=== PATIENT | female | born 1985 | race Caucasian/White ===

== ENCOUNTER 2023-01-16 11:29 | Emergency (ER) | payer BC, SELFPAY ==
[2023-01-16 11:31] VITALS: BP 125/81; PULSE 99; RESP 16; TEMP 36.1; O2SAT 99; BMI 33.3
--- NOTE | 2023-01-16 11:49 | EX.ED.DYSGE1 ---
HPI <LILLY Michel - Last Filed: 01/16/23 18:04> History of Present Illness Chief Complaint: Abd Pain Narrative Narrative: Patient presenting today with right upper quadrant abdominal pain that she has had since 6 AM this morning. She reports that she has a constant dull ache and intermittent sharp pains that radiate down her right side. She also reports nausea and 4 episodes of vomiting without any hematemesis since this morning. She is 19 weeks and has had regular care, she is and has a history of miscarriage. She denies any fever, chills, abnormal vaginal discharge, vaginal bleeding, and urinary symptoms. She denies any previous abdominal surgery. PFSH <LILLY Michel - Last Filed: 01/16/23 18:04> PFSH Home Medications ondansetron 4 mg disintegrating tablet 4 mg PO Q8H PRN PRN Nausea #10 tabs 01/16/23 [Rx Last Taken Unknown] Allergy/AdvReac Type Severity Reaction Status Date / Time turkey Allergy Mild Hives Verified 01/16/23 11:30 wool Allergy Mild Hives Verified 01/16/23 11:30 amoxicillin Allergy Hives Verified 01/16/23 11:30 Social History Smoking Status: Former smoker ROS <LILLY Michel - Last Filed: 01/16/23 18:04> ROS ED Constitutional Constitutional ED: Denies chills, fever(s) or sweats Eyes Eyes: Denies blurry vision or diplopia Cardiovascular Cardiovascular: Denies chest pain Respiratory/Chest Respiratory/Chest: Denies cough or dyspnea Gastrointestinal Gastrointestinal: Reports abdominal pain, nausea and vomiting; Denies constipation or diarrhea Genitourinary Genitourinary ED: Denies dysuria, hematuria or urinary urgency Musculoskeletal Musculoskeletal: Denies arthralgias, back pain or myalgias Integumentary Denies abscess, Abrasions or rash Neurologic Neurologic: Denies weakness EXAM <LILLY Michel - Last Filed: 01/16/23 18:04> Physical Exam Const Vital Signs: 01/16/23 11:31 01/16/23 16:06 Temperature 97.0 F L Temperature Source Temporal Pulse Rate 99 68 Respiratory Rate 16 16 Blood Pressure 125/81 H 114/62 Blood Pressure Mean 95 Pulse Ox 99 Oxygen Delivery Method Room Air Positive well nourished, well developed and no apparent distress General Appearance ED: well developed HEENT Reports normocephalic and head/scalp atraumatic Mouth ED: Yes moist mucous membranes normal Eyes PERRL and EOMs intact bilaterally Neck full ROM and supple Chest Wall inspection of chest normal Resp normal respiratory effort and clear to auscultation bilaterally Cardio regular rate and regular rhythm GI soft to palpation, non-distended and no masses GI Narrative: Mild right upper quadrant tenderness to palpation, negative Calzada sign. Palpation: Negative for guarding or rebound tenderness present Back/Spine normal ROM and normal to inspection Extremity full ROM Extremity Narrative: Area of ecchymosis to the right lateral thigh from hitting it on the side of the bed 2 nights ago. Neuro oriented x3, CN's II-XII intact bilaterally, moves all extremities, no focal motor deficits and no sensory deficits noted Sensorium / Orientation: awake and alert Psych mental status grossly normal and thought process normal Skin no rashes or lesions noted and no wounds <Dr. Quirino Vicente MD - Last Filed: 01/16/23 13:47> Physical Exam Const Vital Signs: 01/16/23 11:31 01/16/23 16:06 Temperature 97.0 F L Temperature Source Temporal Pulse Rate 99 68 Respiratory Rate 16 16 Blood Pressure 125/81 H 114/62 Blood Pressure Mean 95 Pulse Ox 99 Oxygen Delivery Method Room Air [facility] <LILLY Michel - Last Filed: 01/16/23 18:04> [facility] Narrative Medical decision making narrative: Patient presenting today with right upper quadrant abdominal pain that started at 6 AM she describes it as a constant ache and intermittent sharp shooting pains. The pain occasionally radiates down her right side. She still has her gallbladder and has not had any previous abdominal surgery. She is very mildly tender to right upper quadrant, negative Calzada sign. She reports nausea and vomiting without any diarrhea. He has been given IV fluids and Zofran. Labs will be obtained to rule out leukocytosis, anemia, electrolyte abnormality, hepatobiliary etiology, and UTI. Right upper quadrant ultrasound obtained to rule out cholecystitis. Labs overall are unremarkable, slight leukocytosis which can be due to her being . UA does show hematuria with 2+ bacteria but is contaminated, culture will be sent. Ultrasound shows mild right hydronephrosis which does make me suspicious for a kidney stone. She is not having any urinary symptoms but this could explain the hematuria. However, I do not think that any additional imaging is indicated. On repeat examination she reports that she feels much better and would like to go home. I have given her a prescription for Zofran and and she has been given strict return instructions. She is to follow-up with her OB as well and will be discharged home in stable condition. She is comfortable. Lab Data Attestation: I reviewed the patient's lab results. Labs: Laboratory Results - last 24 hr 01/16/23 01/16/23 12:00 13:30 WBC 13.3 H RBC 4.31 Hgb 13.4 Hct 39.9 MCV 92.6 MCH 31.1 MCHC 33.6 RDW Std Deviation 44.5 H RDW Coeff of James 13.1 Plt Count 322 MPV 9.2 Immature Gran % (Auto) 0.500 Neut % (Auto) 76.8 H Lymph % (Auto) 13.0 L [place] % (Auto) 6.8 Eos % (Auto) 2.6 Baso % (Auto) 0.3 Absolute Neuts (auto) 10.2 H Absolute Lymphs (auto) 1.73 Nucleated RBC % 0 Sodium 138 Potassium 3.7 Chloride 107 Carbon Dioxide 23.0 Anion Gap 8 BUN 12 Creatinine 0.78 Estim Creat Clear Calc 72.31 Est GFR (MDRD) Af Amer 107 Est GFR (MDRD) Non-Af 89 BUN/Creatinine Ratio 15.3 Glucose 109 H Calcium 9.0 Total Bilirubin 0.40 AST 17 ALT 23 Alkaline Phosphatase 52 Total Protein 6.9 Albumin 3.0 L Globulin 3.9 Albumin/Globulin Ratio 0.8 L Urine Color Yellow Urine Clarity Cloudy Urine pH 6.0 Ur Specific [place] 1.025 Urine Protein 30 H Urine Glucose (UA) Normal Urine Ketones 50 H Urine Occult Blood 250 H Urine Nitrite Negative Urine Bilirubin Negative Urine Urobilinogen 1 H Ur Leukocyte Esterase 100 H Urine RBC 50-100 SEEN Urine WBC 5-10 SEEN Ur Squamous Epith Cells 10-25 SEEN Urine Bacteria 2+ Urine Mucus 0 SEEN Radiography Diagnostic Testing: Clinical Impression(s) from Imaging Studies Gallbladder Ultrasound 01/16/23 12:01 IMPRESSION: Mild right hydronephrosis. Electronically Signed: Jah Back MD at 14:17 EDT , <Dr. Quirino Vicente MD - Last Filed: 01/16/23 13:47> [facility] Lab Data Labs: Laboratory Results - last 24 hr 01/16/23 01/16/23 12:00 13:30 WBC 13.3 H RBC 4.31 Hgb 13.4 Hct 39.9 MCV 92.6 MCH 31.1 MCHC 33.6 RDW Std Deviation 44.5 H RDW Coeff of James 13.1 Plt Count 322 MPV 9.2 Immature Gran % (Auto) 0.500 Neut % (Auto) 76.8 H Lymph % (Auto) 13.0 L [place] % (Auto) 6.8 Eos % (Auto) 2.6 Baso % (Auto) 0.3 Absolute Neuts (auto) 10.2 H Absolute Lymphs (auto) 1.73 Nucleated RBC % 0 Sodium 138 Potassium 3.7 Chloride 107 Carbon Dioxide 23.0 Anion Gap 8 BUN 12 Creatinine 0.78 Estim Creat Clear Calc 72.31 Est GFR (MDRD) Af Amer 107 Est GFR (MDRD) Non-Af 89 BUN/Creatinine Ratio 15.3 Glucose 109 H Calcium 9.0 Total Bilirubin 0.40 AST 17 ALT 23 Alkaline Phosphatase 52 Total Protein 6.9 Albumin 3.0 L Globulin 3.9 Albumin/Globulin Ratio 0.8 L Urine Color Yellow Urine Clarity Cloudy Urine pH 6.0 Ur Specific [place] 1.025 Urine Protein 30 H Urine Glucose (UA) Normal Urine Ketones 50 H Urine Occult Blood 250 H Urine Nitrite Negative Urine Bilirubin Negative Urine Urobilinogen 1 H Ur Leukocyte Esterase 100 H Urine RBC 50-100 SEEN Urine WBC 5-10 SEEN Ur Squamous Epith Cells 10-25 SEEN Urine Bacteria 2+ Urine Mucus 0 SEEN Radiography Diagnostic Testing: Clinical Impression(s) from Imaging Studies Gallbladder Ultrasound 01/16/23 12:01 IMPRESSION: Mild right hydronephrosis. Electronically Signed: Jah Back MD at 14:17 EDT , Treatment and Re-Evaluation :: I have personally performed a face to face assessment of the patient and have reviewed the SINAN Note. I performed a substantive portion of the visit including all aspects of the following. My heredia findings include: History: Patient presents with nausea vomiting some right upper quadrant pain that really started this morning. She has not had problems with morning sickness with this . She has never had gallbladder problems or cholecystectomy. No family history of this. No chest pain or trouble breathing. She is not having pelvic pain discharge or bleeding. She is not having issues with the . Exam: Patient is awake alert. She overall looks reasonably comfortable. Mucous membranes are moist. Lungs are clear and saturations are normal at 99% on room air showing no hypoxia. Bowel sounds are normal. Abdomen is gravid. No uterine tenderness on exam and uterus is slightly below the umbilicus. She has minimal if any right upper quadrant tenderness although that is where her discomfort is. No epigastric tenderness. No rash. Medical Decision Making: Patient will get IV fluids meds for nausea Labs ultrasound. These are pending. Discharge Plan Triage Chief Complaint: Abd Pain ED Midlevel Provider: Octavia Vargas ED Provider: Quirino Vicente Dx/Rx/DC Orders Clinical Impression: Nausea & vomiting, Abdominal pain Instructions: Abdominal Pain Prescriptions: New ondansetron 4 mg tablet,disintegrating 4 mg PO Q8H PRN PRN (Reason: Nausea) Qty: 10 0RF Primary Care Provider: Care Physician,No Primary Referrals: Care Physician,No Primary [Primary Care Provider] - Activity Restrictions/Additional Instructions: Please follow-up with your [facility] and return for any worsening of symptoms. Disposition Disposition: Home, Self Care Discharge Date/Time: 01/16/23 16:08
[2023-01-16] MEDS: Ondansetron 4 MG/2 ML Vial IV (11:59)
[2023-01-16] MEDS: 0.9% Normal Saline 1,000 ML 999 ML IV (11:59)
--- NOTE | 2023-01-16 12:01 | US_ITS ---
STUDY: ABDOMINAL ULTRASOUND - RIGHT UPPER QUADRANT REASON FOR VISIT: Female, 37 years old RUQ PAIN 19 WEEKS PREG TECHNIQUE: Ultrasound evaluation of the right upper quadrant was performed with real-time and static short-scale imaging. TECHNICAL QUALITY: Adequate. COMPARISON: None. FINDINGS: Liver: The liver measures 14 cm. There is normal echogenicity of the liver. The bile ducts are within normal limits. There is hepatic color flow. The direction of portal flow is hepatopetal. There is no demonstrated mass lesion. Gallbladder: Normal distended gallbladder. The gallbladder wall measures 1.1 mm. There is a negative sonographic Calzada''s sign. There is no pericholecystic fluid. There are no gallstones. Common Bile Duct (C.B.D.): The common bile duct measures 5.2 mm. Pancreas: Normal size of the head, body and tail of the pancreas. There is normal echogenicity of the pancreas. There is no demonstrated pancreatic mass or cyst. Right Kidney: Normal size of the right kidney. The right kidney measures 11.3 cm x 6.3 cm x 5.5 cm. Normal renal cortex. The right cortex measures 1.7 cm. There is no demonstrated renal mass or cyst. There is mild hydronephrosis of the right kidney. US/Gallbladder IMPRESSION: Mild right hydronephrosis. Electronically Signed: Jah Back MD at 14:17 EDT ,
--- NOTE | 2023-01-16 12:03 | ED.RN ---
IV started and medicated per order. Patient / family aware of treatment plan.
[2023-01-16 12:17] LABS: Absolute Lymphocyte Count 1.73 X10^3/uL (0.83-4.51); Absolute Neutrophil Count 10.2 X10^3/uL (2.0-7.7); Basophil# 0.04 X10^3/uL; Basophil% 0.3 % (0-1); Eosinophil# 0.34 X10^3/uL; Eosinophils% 2.6 % (0-5); Hematocrit 39.9 % (37-47); Hemoglobin 13.4 g/dL (12.0-15.0); Lymphocyte # 1.73 X10^3/ul (0.83-4.51); Mean Corp Hgb Conc 33.6 g/dL (32-36); Mean Corpuscular Hgb 31.1 pg (27.0-32.0); Mean Corpuscular Volume 92.6 fL (81-99); Mean Platelet Vol. 9.2 fl (6.2-12.0); Monocyte# 0.91 X10^3/uL; Monocyte% 6.8 % (0-10); NRBC Flagged by Analyzer 0 % (0-5); Neutrophil # 10.21 X10^3/uL (2.7-7.7); Neutrophil % 76.8 % (47-70); Platelet Count 322 K/mm3 (150-450); RBC Distribution Width CV 13.1 % (11.6-14.6); RBC Distribution Width SD 44.5 fl (35.1-43.9); Red Blood Count 4.31 M/mm3 (4.2-5.4); White Blood Count 13.3 K/mm3 (4.4-11.0)
[2023-01-16 12:33] LABS: ALB/GLOB Ratio 0.8 RATIO (0.9-2.4); AST(SGOT) 17 U/L (15-37); Alanine Aminotransfer ALT/SGPT 23 U/L (13-56); Alkaline Phosphatase 52 U/L (45-117); Anion Gap 8 (5-15); BUN 12 mg/dL (7-18); BUN/Creat Ratio 15.3 RATIO (10-20); Chloride 107 mmol/L (98-107); Creatinine, Serum 0.78 mg/dL (0.55-1.02); EST Glomerular Filtration Rate 89 mL/min (>60); Est Glom Filt Rate - Afr Amer 107 mL/min (>60); Estimated Creatinine Clearance 72.31 ml/min; Globulin 3.9 g/dL (2.2-4.2); Glucose 109 mg/dL (74-106); Potassium 3.7 mmol/L (3.5-5.1); Protein, Total 6.9 g/dL (6.4-8.2); Sodium Level 138 mmol/L (136-145)
[2023-01-16 13:36] LABS: Mucous, Urine 0 SEEN /hpf (<or=2+)
[2023-01-16 13:42] LABS: Color, Urine Yellow (Yellow); Glucose, Dipstick Normal (Normal); Ketone-Dipstick 50 mg/dl (Negative); Leukocyte Esterase-Dipstick 100 /ul (Negative); Nitrite-Dipstick Negative (Negative); Occult Blood-Urine 250 /ul (Negative); Protein-Dipstick 30 mg/dl (Negative); Specific Gravity, Urine 1.025 (1.002-1.030); Urine Bilirubin Dipstick Negative (Negative); Urine Clarity Cloudy (Clear); Urine Urobilinogen 1 mg/dl (Normal)
[2023-01-16 14:02] LABS: Bacteria 2+ /hpf (None Seen); Red Blood Cells-Urine 50-100 SEEN /hpf (0-5); Squamous Epithelial Cells - UA 10-25 SEEN /hpf (5-10); White Blood Cells 5-10 SEEN /hpf (0-5)
[2023-01-16 16:06] VITALS: BP 114/62; PULSE 68; RESP 16
== END 2023-01-16 16:08 | disposition home or self-care (01) ==
PROVIDERS: Physician Assistant; Emergency Provider Emergency Medicine; Visit Provider Emergency Medicine
DX: O26.892 Other specified pregnancy related conditions, second trimester (principal); R10.11 Right upper quadrant pain; O21.9 Vomiting of pregnancy, unspecified; O99.891 Other specified diseases and conditions complicating pregnancy; R31.9 Hematuria, unspecified; O26.832 Pregnancy related renal disease, second trimester; N13.30 Unspecified hydronephrosis; Z3A.19 19 weeks gestation of pregnancy; O09.512 Supervision of elderly primigravida, second trimester; Z87.891 Personal history of nicotine dependence
CPT/HCPCS: 76705; 80053; 81001; 85025; 87086; 87088; 96361; 96374; 99284; J7030; J2405

== ENCOUNTER 2023-04-18 14:46 | Observation (INO) | payer BC, SELFPAY ==
[2023-04-18 13:36] VITALS: PULSE 110; BMI 35.2
[2023-04-18 14:00] VITALS: BP 150/81; PULSE 110; RESP 18; TEMP 36.6; O2SAT 100
--- NOTE | 2023-04-18 14:53 | NURSING ---
talked with Peggy Abrams from , informed of FNST qshift order.
[2023-04-18] MEDS: Lactated Ringers 1,000 ML 100 ML IV (15:21)
[2023-04-18] MEDS: Ceftriaxone 1 GM/50 ML BAG IV (15:33)
[2023-04-18] MEDS: Ondansetron 4 MG/2 ML Vial IV (15:36)
--- NOTE | 2023-04-18 17:12 | NURSING ---
EFM and TOCO applied at 1643 for an NST. Patient in R lateral position. FHR baseline 150, moderate variability, accels noted, no decels, no contractions, uterine palpation soft. Patient denies contractions and states positive movement. EFM and TOCO removed at 1712.
--- NOTE | 2023-04-18 17:43 | HP.PCM.OB_ITS ---
HPI - General General Date of Admission: 04/18/23 Date of Service: 04/18/23 Chief Complaint: back pain, malaise, dysuria [facility] Narrative APRIL WOOD, is a 37 F who presents to the office at 32 weeks gestation with fevers, chills, malaise, nausea, vomiting, right-sided back pain, dysuria for 1 day. She reports subjective fevers and chills. She generally does not feel well. She has been having multiple episodes of emesis but tolerating p.o. She has right flank and back pain. She has had burning and pain with urination with a change in odor of urine. She has also noticed some vaginal discharge. No leaking of fluid or bleeding. Good movement. No abdominal pain or contractions. [facility] Medical History (Updated 04/18/23 @ 18:[address] Jenifer Arevalo, ) Former smoker Irregular heart beat Home Medications ondansetron 4 mg disintegrating tablet 4 mg PO Q8H PRN PRN Nausea #10 tabs 01/16/23 [Rx Last Taken Unknown] [id number] 400 mcg-om3 35 mg-dha 25 mg-epa 5 mg-fish oil chewable tablet 2 tab PO DAILY 04/18/23 [History Last Taken 04/17/23] aspirin 81 mg chewable tablet 1 tab PO DAILY 04/18/23 [History Last Taken 04/18/23] Allergy/AdvReac Type Severity Reaction Status Date / Time turkey Allergy Mild Hives Verified 01/16/23 11:30 wool Allergy Mild Hives Verified 01/16/23 11:30 amoxicillin Allergy Hives Verified 01/16/23 11:30 Social History Smoking Status: Former smoker Vital Signs Vital Signs Vital Signs: 04/18/23 14:00 04/18/23 13:36 Temperature 97.9 F Temperature Source Oral Pulse Rate 110 H 110 H Respiratory Rate 18 Respiratory Effort Normal Non-Labored Respiratory Depth Normal Respiratory Pattern Normal Blood Pressure 150/81 H Blood Pressure Mean 104 Blood Pressure Source Monitor Blood Pressure Position Semi-Fowlers Blood Pressure Location Right Arm Pulse Ox 100 Oxygen Delivery Method Room Air Room Air Weight Weight: 180 lb 1.883 oz Body Mass Index (BMI) 35.2 Physical Exam Const alert and no apparent distress HEENT normocephalic Resp normal respiratory effort GI soft to palpation, non-tender and non-distended Bladder / Kidney Exam: CVA tenderness right Speculum Exam - Vagina: vaginal discharge frothy Speculum Exam - Cervix: cervical os closed Extremity normal to inspection Labs Labs Labs: Hct 39.9 % (37-47) Hgb 13.4 g/dL (12.0-15.0) Assessment & Plan (1) 32 weeks gestation of : PLAN: Admit for treatment of pyelonephritis in . IV fluid hydration given nausea and vomiting. Tylenol and Zofran PRN. Check a CBC with differential on admission. To start IV Rocephin every 24 hours. Continuous pulse ox. NST every shift. Urine culture and vaginal culture swab sent in the office. Discussed we will continue IV antibiotics until afebrile for 24 to 48 hours. If no improvement clinically, or if continues to have fevers we will check a renal ultrasound. (2) Pyelonephritis affecting : (3) Vaginal discharge:
[2023-04-18 18:01] VITALS: BP 122/76; PULSE 99; RESP 18; TEMP 37.4; O2SAT 99
[2023-04-18] MEDS: 0.9% Saline Lock 10 ML Syringe IV (18:01)
--- OUTSIDE RECORDS SUMMARY | 2023-04-18 18:06 | XMS RPT_ITS ---
Author Name Auto Generated Organization OHIP Care Team Providers Care Air Control/Anti Air Warfare Officer Name Role Phone AMY MCGINNIS Attending Unavailable COLLAZO, TERENCE Referring Unavailable COLLAZO, TERENCE Attending Unavailable COLLAZO, TERENCE Referring Unavailable COLLAZO, TERENCE Referring Unavailable ELSA LOW Attending Unavail able PLOTTS, JOY Attending Unavailable PLOTTS, JOY Referring Unavailable PLOTTS, JOY Attending Unavailable PLOTTS, JOY Referring Unavailable PLOTTS, JOY Attending Unavailable COLLAZO, TERENCE Attending Unavailable WISWELL, SHANIQUA Attending Unavailable COLLAZO, TERENCE Attending Unavailable COLLAZO, TERENCE Referring Unavailable COLLAZO, TERENCE Referring Unavailable COLLAZO, TERENCE Referring Unavailable ELSA LOW Attending Unavail able PROBLEMS DATE TYPE CONDITION / CODE ATTENDING STATUS [facility] 03/18/2023 Active Elevated glucose / R73.09(ICD-10) NA Active [facility] 03/13/2023 Active 23 weeks gestati on of / Z3A.23(ICD-10) NA Active [facility] 03/13/2023 Active Multigravida of advanced maternal age in second trimester / O09.522(ICD-10) NA Active [facility] 03/13/2023 Active Other obesity du e to excess calories affecting in second trimester / O99.212(ICD-10) NA Active [facility] 03/13/2023 Active Other obesity du e to excess calories affecting in second trimester / E66.09(ICD-10) NA Active [facility] 12/25/2022 Active AMA (advanced ma ternal age) multigravida 35+, second trimester / O09.522(ICD-10) ELSA LOW Active [facility] 12/25/2022 Active High-risk pregna ncy in second trimester / O09.92(ICD-10) ELSA LOW Active [facility] 11/13/2022 Active Supervision of o ther high risk pregnancies, first trimester / O09.891(ICD-10) AMY MCGINNIS Active [facility] 11/04/2022 Active History of cervi regina LEEP biopsy affecting care of mother, antepartum / O34.40(ICD-10) AMY MCGINNIS Active [facility] 11/04/2022 Active History of cervi regina LEEP biopsy affecting care of mother, antepartum / Z98.890(ICD-10) AMY MCGINNIS Active [facility] 12/25/2022 Active 15 weeks gestati on of / Z3A.15(ICD-10) AMY MCGINNIS Active [facility] 11/27/2022 Active History of thyro id disease / Z86.39(ICD-10) NA Active [facility] 11/27/2022 Active 11 weeks gestati on of / Z3A.11(ICD-10) TERENCE COLLAZO Active [facility] 11/27/2022 Active Encounter for nu chal translucency testing / Z36.82(ICD-10) NA Active [facility] 11/27/2022 Active 9 weeks gestatio n of / Z3A.09(ICD-10) NA Active [facility] 11/25/2022 Active with uncertain dates in first trimester / Z34.91(ICD-10) TERENCE COLLAZO Active [facility] PROCEDURES No Procedure Records Found RESULTS GLUCOSE GEST, 3 HOUR Collected: 023 11:02 AM Status: F Source: [facility] Order Comment: Specimen Type : BLOOD SPECIMEN Ordering Facility: [facility] Address: [address] [place] [address] TYPE CODE TESTS RESULT OUT OF RANGE REFERENCE UNITS LAB 19717-5(LOINC) Glucose 3h p chal SerPl-mCnc 104 74-139 mg/dL Result Comment: [place] [employer] of Obstetricians and Gynecologists (Olea/Franco) guidelines state gestational diabetes mellitus is present when 2 or more of the plasma glucose concentrations meet or exceed the following levels: fastin mg/dl, 1 hr: 180 mg/dl, 2 hr: 155 mg/dl, and 3 hr: 140 mg/dl. Performed By: #### GTGST3 ## ## [facility] CLIA [id number] [address] [place] [address] GLUCOSE GEST, 2 HOUR Collected: 023 10:02 AM Status: F Source: [facility] Order Comment: Specimen Type : BLOOD SPECIMEN Ordering Facility: [facility] Address: [address] [place] [address] TYPE CODE TESTS RESULT OUT OF RANGE REFERENCE UNITS LAB 64639-4(LOINC) Glucose 2h p chal SerPl-mCnc 110 74-154 mg/dL Result Comment: [place] [employer] of Obstetricians and Gynecologists ([place]lea/Coustan) guidelines state gestational diabetes mellitus is present when 2 or more of the plasma glucose concentrations meet or exceed the following levels: fastin mg/dl, 1 hr: 180 mg/dl, 2 hr: 155 mg/dl, and 3 hr: 140 mg/dl. Performed By: #### GTGST2 ## ## [facility] CLIA [id number] [address] [place] [address] OF [facility] GLUCOSE GEST, 1 HOUR Collected: 023 9:04 AM Status: F Source: [facility] Order Comment: Specimen Type : BLOOD SPECIMEN Ordering Facility: [facility] Address: [address] [place] [address] TYPE CODE TESTS RESULT OUT OF RANGE REFERENCE UNITS LAB 10413-4(LOINC) Glucose 1h p chal SerPl-mCnc 177 74-179 mg/dL Result Comment: [place] [employer] of Obstetricians and Gynecologists ([place]lea/Coustan) guidelines state gestational diabetes mellitus is present when 2 or more of the plasma glucose concentrations meet or exceed the following levels: fastin mg/dl, 1 hr: 180 mg/dl, 2 hr: 155 mg/dl, and 3 hr: 140 mg/dl. Performed By: #### GTGST1 ## ## [facility] CLIA [id number] [address] [place], [place] [id number] [place] GLUCOSE GEST, FASTING Collected: 2022 7:51 AM Status: F Source: [facility] Order Comment: Specimen Type : BLOOD SPECIMEN Ordering Facility: [facility] Address: [address] [place], [place] [id number] TYPE CODE TESTS RESULT OUT OF RANGE REFERENCE UNITS LAB 1558-6(LOINC) Glucose p fast SerPl-mCnc 86 74-94 mg/dL Result Comment: [place] [employer] of Obstetricians and Gynecologists ([place]lea/Coustan) guidelines state gestational diabetes mellitus is present when 2 or more of the plasma glucose concentrations meet or exceed the following levels: fastin mg/dl, 1 hr: 180 mg/dl, 2 hr: 155 mg/dl, and 3 hr: 140 mg/dl. Performed By: #### GTGSTF ## ## [facility] CLIA [id number] [address] [place] [address] [place] GEST GLUC SCREEN, 1-HR, 50 G M, NON-FASTING Collected: 03/13/2023 1:40 PM Status: F Source: [facility] Order Comment: Specimen Type : BLOOD SPECIMEN Ordering Facility: [facility] Address: [address] [place], [place] [address] TYPE CODE TESTS RESULT OUT OF RANGE REFERENCE UNITS LAB 2345-7(LOINC) Glucose SerPl-mCnc 164 High 74-134 mg/dL Result Comment: [place] [employer] of Obstetricians and Gynecologists ([place]lea/Coustan) guidelines state a gestational diabetes mellitus positive screen is made, in women not previously diagnosed with overt diabetes, when the 1 hr plasma glucose level is equal to or above 140 mg/dL. The [facility] Educational Technologist and [facility] [place] recommends a 135 mg/dL cutoff. Performed By: #### GLTGST ## ## [facility] CLIA [id number] [address] [place] [address] [place] CBC W AUTO DIFF BLD Collected: 03/13/2023 1:[address] atus: F Source: [facility] Order Comment: Specimen Type : BLOOD SPECIMEN Ordering Facility: [facility] Address: [place] [address] TYPE CODE TESTS RESULT OUT OF RANGE REFERENCE UNITS LAB 6690-2([facility]) WBC # Bld Auto 9.29 3.70-11.00 k/uL LAB 789-8([facility]) RBC # Bld Auto 3.93 3.90-5.20 m/ uL LAB 718-7([facility]) Hgb Bld-mCnc 12.0 11.5-15.5 g/dL LAB 4544-3([facility]) Hct VFr Bld Auto 35.3 Low 36.0-46.0 % LAB 787-2([facility]) MCV RBC Auto 89.8 80.0-100.0 fL LAB 785-6([facility]) MCH RBC Qn Auto 30.5 26.0-34.0 p g LAB 786-4([facility]) MCHC RBC Auto-mCnc 34.0 30.5-36.0 g/dL LAB 84684-4([facility]) RDW RBC-Rto 12.9 11.5-15.0 % LAB 777-3([facility]) Platelet # Bld Auto 259 150-400 k/uL LAB 84946-2([facility]) PMV Bld Auto 9.1 9.0-12.7 fL LAB 770-8([facility]) Neutrophils/leuk NFr Bld Auto 66.5 % LAB 751-8([facility]) Neutrophils # Bld Auto 6.17 1.45-7.50 k/uL LAB 736-9([facility]) Lymphocytes/leuk NFr Bld Auto 18.3 % LAB 731-0([facility]) Lymphocytes # Bld Auto 1.70 1.00-4.00 k/uL LAB 5905-5([facility]) Monocytes/leuk NFr Bld Auto 8.8 % LAB 742-7([facility]) Monocytes # Bld Auto 0.82 <0.87 k/uL LAB 713-8([facility]) Eosinophil/leuk NFr Bld Auto 5.7 % LAB 711-2([facility]) Eosinophil # Bld Auto 0.53 High <0.46 k/uL LAB 706-2([facility]) Basophils/leuk NFr Bld Auto 0.3 % LAB 704-7(LOINC) Basophils # Bld Auto 0.03 <0.11 k/uL LAB 10791-6(LOINC) Imm Granulocytes/virginie k NFr Bld Auto 0.4 % LAB 76112-0(LOINC) Imm Granulocytes # Bld Auto 0.04 <0.10 k/uL LAB 85298-0(LOINC) nRBC/100 WBC Bld-Rto 0.0 /100 WBC LAB 771-6(LOINC) nRBC # Bld Auto <0.01 <0.01 k/u L LAB 19116-0(LOINC) Differential method Bld Auto Performed By: #### 24774-5 # ### [facility] CLIA [id number] [address] [place] [address] OF [place] REAGIN+T PALLIDUM IGG+IGM SERPL-IMP Collected: 03/13/2023 1:40 PM Status: F Source: [facility] Order Comment: Specimen Type : BLOOD SPECIMEN Ordering Facility: [facility] Address: [address] [place] [address] TYPE CODE TESTS RESULT OUT OF RANGE REFERENCE UNITS LAB 36478-6([facility]) T pallidum IgG+IgM Ser Ql IA Nonreactive Nonreactive LAB 38805-7([facility]) Reagin+T pallidum IgG+IgM SerPl-Imp Cannot exclude recent Treponemal infection if specimen collected within 7-10 days after appearance of suspect lesions or 2-3 weeks after an exposure. Clinical correlation is required. Performed By: #### 67005-3 # ### [facility] CLIA [id number] [address] [place] [address] OF [facility] PROGRESS Observed: 03/13/2023 1:31 PM Status: COMPLETED Source: [facility] HNO ID: [id number] Author: Maru Liz LPN Service: ? Author Type: ? Type: Progress Notes Filed: 03/13/2023 4:04 PM Note Text: Patient identified by name and date of . Lizette Wood presents today for a vaccination of Tdap. Patient denies an allergy to latex: no-single dose vial administered Patient denies a severe (life-threatening) allergy to a previous dose of Tdap, DTP, DTaP, DT or Td vaccine. No Patient denies history of epilepsy or neurological problems: Yes Patient is afebrile and denies being moderately or severely ill: Yes Patient denies history of Guillain-Sagamore Syndrome (a severe paralytic illness): No Tdap Adacel injection was given without incident. See immunizations for details of immunizations administered today. VIS sheet provided: Yes Provider Joy Rosado CNM was present in office at time of injection. Maru GARCIA Observed: 03/13/2023 12:00 AM Status: COMPLETED Source: [facility] Telephone (OBGYWM) LIZETTE WOOD ([id number]) 1985 F Date Time Provider Department 03/13/23 JOY ROSADO During your visit today, we recorded the following information about you: Jordi Jaime LPN 03/13/2023 4:55 PM Signed ----- Message from Joy Rosado APRN.CNM sent at 03/13/2023 4:54 PM EDT ----- 1 hour GCT elevated. Please notify patient that she will need to complete a fasting 3 hour GTT. Order placed. KRUNAL Cesar Annalee LPN 03/14/2023 3:11 PM Signed Patient notified Allergies As of Date: 03/13/2023 Noted Allergy Reaction PENICILLINS 11/04/2022 4 - Hives SOAP 11/04/2022 2 - Rash Comments: Dial Soap only WOOL 11/04/2022 4 - Hives Date Reviewed: 03/13/2023 Reviewed by: Joy Rosado APRN.CNM - Fully Assessed Reason for Visit: Results [95] Prescriptions as of 03/14/2023 - aspirin 81 mg cap Take by mouth. - prental multivitamin 27 mg iron- 800 mcg tablet Take 1 tablet by mouth once daily. Problem List As Of Date 03/13/2023 Noted Resolved Antepartum multigravida of advanced maternal ag*11/04/2022 History of cervical LEEP biopsy affecting care *11/04/2022 History of palpitations [Z87.898] 11/04/2022 Quit smoking [Z87.891] 11/04/2022 Supervision of other high risk pregnancies, fir*11/13/2022 Elevated glucose [R73.09] 03/13/2023 Encounter Status:Closed by JORDI JAIME LPN on 03/14/23 DELMAN Observed: 01/16/2023 12:00 AM Status: COMPLETED Source: [facility] Telephone (OBHolisol logisticsWM) LIZETTE WOOD ([id number]) 1985 F Date Time Provider Department 01/16/23 GARO ROGERS OBMICHELEW During your visit today, we recorded the following information about you: iKara Bee RN 01/16/2023 10:42 AM Signed Patient 18w6d calling with complaints of constant dull ache in RUQ that started at 6 am this morning. Occasionally pain is sharp. Position changes do not help. Pain does radiate down the right side of abdomen as well. Currently rating pain at a 6-7 out of 10. Patient has also tried warm bath and it did relieve it temporarily. Denies any constipation, diarrhea, or difficulty urinating. No nausea or vomiting. No bleeding or leaking. No headache, dizziness or blurred vision. Does not have access to a BP machine. Patient states area where pain is located is tender to the touch. Patient has anatomy scan and OB appointment on 01/22. Do you want patient evaluated in office? Kiara Yost RN 01/16/2023 12:43 PM Signed Spoke significant other and patient is currently at [facility] ER. Omar Yost RN Allergies As of Date: 01/16/2023 Noted Allergy Reaction PENICILLINS 11/04/2022 4 - Hives SOAP 11/04/2022 2 - Rash Comments: Dial Soap only WOOL 11/04/2022 4 - Hives Date Reviewed: 12/25/2022 Reviewed by: Treva Franklin Ma - Fully Assessed Reason for Visit: OB-abdominal pain [Other] Prescriptions as of 01/16/2023 - aspirin 81 mg cap Take by mouth. - prental multivitamin 27 mg iron- 800 mcg tablet Take 1 tablet by mouth once daily. Problem List As Of Date 01/16/2023 Noted Resolved Antepartum multigravida of advanced maternal ag*11/04/2022 History of cervical LEEP biopsy affecting care *11/04/2022 History of palpitations [Z87.898] 11/04/2022 Quit smoking [Z87.891] 11/04/2022 Supervision of other high risk pregnancies, fir*11/13/2022 Encounter Status:Closed by OMAR YOST RN on 01/16/23 CNPN Observed: 11/29/2022 12:00 AM Status: COMPLETED Source: [facility] Telephone (CAROLAGYWM) LIZETTE WOOD ([id number]) 1985 F Date Time Provider Department 11/29/22 TERENCE COLLAZO During your visit today, we recorded the following information about you: Terence Collazo APRN.CNM 11/29/2022 9:07 AM Signed Patient was here for NT US and did not look into [id number] pricing. Called in waiting room but never came back to give an answer for NIPT or sequential screen. Too late for sequential screen due to >24 hr since US. Can you please call patient and see if she was wanting NIPT and if she called them and got an answer? We can put in order and draw this at next ultrasound. Message sent on ultrasound to schedule her biweekly cervical lengths. Please start these at 16 weeks. Thank you, KRUNAL Michel RN 11/29/2022 9:57 AM Signed Spoke with patient. She does not want the [id number]. Thought she had the sequential screening drawn on Friday. Advised that the order had not been placed as we were waiting her decision. States that she told the lady at the front end manager that she wanted the sequential screen and was advised to go to the lab. Apologized to patient about the miscommunication. First cervical length US scheduled. Caitlyn Collazo APRN.CNM 11/29/2022 12:03 PM Signed I can talk to her at next visit. Thank you, Terence Collazo APRN.CNM Allergies As of Date: 11/29/2022 Noted Allergy Reaction PENICILLINS 11/04/2022 4 - Hives SOAP 11/04/2022 2 - Rash Comments: Dial Soap only WOOL 11/04/2022 4 - Hives Date Reviewed: 11/27/2022 Reviewed by: Dwight Parker Material Handler Floorperson - Fully Assessed Reason for Visit: Patient Update [1234] Prescriptions as of 11/29/2022 - prental multivitamin 27 mg iron- 800 mcg tablet Take 1 tablet by mouth once daily. Problem List As Of Date 11/29/2022 Noted Resolved Antepartum multigravida of advanced maternal ag*11/04/2022 History of cervical LEEP biopsy affecting care *11/04/2022 History of palpitations [Z87.898] 11/04/2022 Quit smoking [Z87.891] 11/04/2022 Supervision of other high risk pregnancies, fir*11/13/2022 Encounter Status:Closed by CAITLYN MALDONADO RN on 11/29/22 RUBELLA IGG AB Collected: 9:36 AM Status: F Source: [facility] Order Comment: Specimen Type : BLOOD SPECIMEN Ordering Facility: [facility] Address: [address] [place] [address] [place] [address] TYPE CODE TESTS RESULT OUT OF RANGE REFERENCE UNITS LAB RUBGQL RUBELLA IGG AB, QUAL Positive Positive Result Comment: The result s uggests recent or past exposure to Rubella virus or history of Rubella vaccination. Positive result may also be seen due to presence of passively-transferred antibodies. Please correlate with patient's history. Performed By: #### RUBIGG ## ## [facility] CLIA [id number] [address] [facility] [address]K [id number] [place] [address] [facility] CBC PNL BLD AUTO Collected: 3 9:36 AM Status: F Source: [facility] Order Comment: Specimen Type : BLOOD SPECIMEN Ordering Facility: [facility] Address: [address] [place] [address] TYPE CODE TESTS RESULT OUT OF RANGE REFERENCE UNITS LAB 6690-2(LOINC) WBC # Bld Auto 10.21 3.70-11.00 k/uL LAB 789-8(LOINC) RBC # Bld Auto 4.45 3.90-5.20 m/uL LAB 718-7(LOINC) Hgb Bld-mCnc 13.8 11.5-15.5 g/dL LAB 4544-3(LOINC) Hct VFr Bld Auto 39.7 36.0-46.0 % LAB 787-2(LOINC) MCV RBC Auto 89.2 80.0-100.0 fL LAB 785-6(LOINC) MCH RBC Qn Auto 31.0 26.0-34.0 pg LAB 786-4(LOINC) MCHC RBC Auto-mCnc 34.8 30.5-36.0 g/dL LAB 50568-0(LOINC) RDW RBC-Rto 13.1 11.5-15.0 % LAB 777-3(LOINC) Platelet # Bld Auto 300 150-400 k/uL LAB 52816-4(LOINC) PMV Bld Auto 9.0 9.0-12.7 fL LAB 771-6(LOINC) nRBC # Bld Auto <0.01 <0.01 k/uL Performed By: #### 23006-8 # ### [facility] CLIA [id number] [address] [place] [address] [place] TYPE + SCREEN Collected: 11/27/2022 9:36 AM Status: F Source: [facility] Order Comment: Specimen Type : BLOOD SPECIMEN Ordering Facility: [facility] Address: [address] [place], [place] [address] TYPE CODE TESTS RESULT OUT OF RANGE REFERENCE UNITS LAB %ABO ABO O LAB %RH RH Positive LAB % ANTIBODY SCREEN Negative LAB %EXX TYPE AND SCREEN EXPIRATION 11/30/2022 23:59 LAB PREVAB HISTORICAL AB SCR STATUS NEGATIVE Performed By: #### TSPN #### [facility] CLIA [id number] [address] [place] [address] [place] HBV SURFACE AG SER QL Collected: 2022 9:36 AM Status: F Source: [facility] Order Comment: Specimen Type : BLOOD SPECIMEN Ordering Facility: [facility] Address: [address] [place] [address] TYPE CODE TESTS RESULT OUT OF RANGE REFERENCE UNITS LAB 5195-3([facility]) HBV surface Ag Ser Ql Negative Negative Performed By: #### 5195-3, 3 1201-7, 09790-8 #### [facility] CLIA [id number] [address] [place] [address] [place] HIV1+2 AB SERPL QL IA Collected: 2022 9:36 AM Status: F Source: [facility] Order Comment: Specimen Type : BLOOD SPECIMEN Ordering Facility: [facility] Address: [address] [place], [place] [address] TYPE CODE TESTS RESULT OUT OF RANGE REFERENCE UNITS LAB 66496-4(LOINC) HIV 1+2 Ab+HIV1 p24 Ag SerPl Ql IA Nonreactive Nonreactive LAB 36396-3(LOINC) HIV 1 AND 2 Ab SerPl IA.rapid Result Comment: Test not ind icated. LAB HIVITP HIVINT Result Comment: No evidence of HIV-1 or HIV-2 infection. Should recent infection be suspected, repeat testing may be considered 2-3 weeks after this draw. [place] Rev. Code 3701.243(E): This information has been disclosed to you from confidential records protected from disclosure by state law. ???You shall make no further disclosure of this information without the specific, written, and informed release of the individual to whom it pertains or as otherwise permitted by state law. A general authorization for the release of medical or other information is not sufficient for the purpose of the release of HIV test results or diagnoses. Performed By: #### 5195-3, 3 1201-7, 54857-1 #### [facility] CLIA [id number] [facility] [address] OF [place] REAGIN+T PALLIDUM IGG+IGM SERPL-IMP Collected: 11/27/2022 9:36 AM Status: F Source: [facility]POS[facility] Order Comment: Specimen Type : BLOOD SPECIMEN Ordering Facility: [facility] Address: [address] [place] [address] TYPE CODE TESTS RESULT OUT OF RANGE REFERENCE UNITS LAB 81821-6(LOINC) T pallidum IgG+IgM Ser Ql IA Nonreactive Nonreactive LAB SYPHIN SYPHILIS INTERPRETATION Cannot exclude recent Treponemal infection if specimen collected within 7-10 days after appearance of suspect lesions or 2-3 weeks after an exposure. Clinical correlation is required. Performed By: #### 5195-3, 3 1201-7, 41011-3 #### [facility] CLIA [id number] [address] [place] [address] HCV AB SER QL Collected: 9:36 AM Status: F Source: [facility] Order Comment: Specimen Type : BLOOD SPECIMEN Ordering Facility: [facility] Address: [address] [place] [address] TYPE CODE TESTS RESULT OUT OF RANGE REFERENCE UNITS LAB 89899-6(LOINC) HCV Ab Ser Ql Negative Negative Result Comment: The result s uggests no evidence of active infection with Hepatitis C virus. Should recent infection be suspected, repeat testing may be considered 4- 6 weeks after this draw. Performed By: #### 61751-4 # ### [facility] CLIA [id number] [address] [place] [address] [place] TSH SERPL-ACNC Collected: 9:36 AM Status: F Source: [facility] Order Comment: Specimen Type : BLOOD SPECIMEN Ordering Facility: [facility] Address: [address] [place], [place] [address] TYPE CODE TESTS RESULT OUT OF RANGE REFERENCE UNITS LAB 3016-3(LOINC) TSH SerPl-aCnc 3.410 0.270-4.200 mIU/L Result Comment: If the patie nt is , TSH reference range varies by gestational period: First Trimester (weeks 9-12): 0.180-2.990 mIU/L Second Trimester: 0.110-3.980 mIU/L Third Trimester: 0.480-4.710 mIU/L Bill Gamino et al. A Practical Approach for the Verifications and Determination of Site- and Trimester-Specific Reference Intervals for Thyroid Function tests in . Thyroid, 2019:29:3:412-420. Venancio Oliver, et al. 2017 Guidelines of the [place] Thy[employer] for the Diagnosis and Management of Thyroid Disease during and the . Thyroid, 2017:27:3:315-389. Performed By: #### 3016-3 ## ## [facility] CLIA [id number] [address] [place] [address] [place] BACTERIA UR CULT Observed: 11/13/2022 9:35 AM Status: F Source: [facility] ORGANISM ID: 1 10,000 -<50,000 CFU/ml Normal urogenital alaina Performed By: #### 630-4 ### # [facility] CLIA [id number] [address] [place] [address] [place] C TRACH+GC DNA SPEC QL YOLANDA+PROBE Collected: 11/13/2022 9:35 AM Status: F Source: [facility] Order Comment: Specimen Type : SWAB Ordering Facility: [facility] Address: [address] [place] [address] TYPE CODE TESTS RESULT OUT OF RANGE REFERENCE UNITS LAB 47915-9(LOINC ) N gonorrhoea DNA Spec Ql YOLANDA+probe Negative for Neisseria gonorrhoeae by amplification Negative for Neisseria gonorrhoeae by amplification LAB 57019-1([facility] ) C trach DNA Spec Ql YOLANDA+probe Negative for Chlamydia trachomatis by amplification Negative for Chlamydia trachomatis by amplificaton Performed By: #### [id number] # ### [facility] CLIA [id number] [address] [place] [address] STATES OF [place] PROGRESS Observed: 11/13/2022 8:45 AM Status: COMPLETED Source: [facility] HNO ID: [id number] Author: Terence Collazo APRN.CNM Service: ? Author Type: Destination Imagination Coordinator Type: Progress Notes Filed: 11/13/2022 9:24 PM Note Text: INITIAL OB ASSESSMENT OB Provider: Terence Collazo CNM HPI: Lizette is a 37 year old White here to establish Obstetrical Care. Patient's last menstrual period was 09/06/2022 (exact date). from OB Dating Form. Cycles regular was unplanned but accepted Complaints: Nausea intermittently, no emesis. Breast tenderness OB History T1 L1 SAB2 IAB0 Ectopic0 Multiple0 Live Births1 Previous history: Prior : never History of 4th degree laceration: No History of shoulder dystocia: No History of Hypertensive disorders including pre-eclampsia, chronic hypertension or gestational hypertension: No History of gestational diabetes: No Patient's Risk Screening for delivery: Have you had a prior grace between 20w and 36w6d?: No MEDICAL/PSYCHOSOCIAL HISTORY: History of hemorrhage or bleeding concerns: No Thyroid Disease: No History of chronic hypertension: No History of pre-existing diabetes: No BMI 31.64 kg/(m2) History of abnormal pap: Yes Prior treatment for cervical dysplasia: LEEP at [facility] History of STDs: HPV Tobacco use: Yes, stopped 2 weeks ago after positive test Caffeine use: Yes Drug use: No Alcohol use: No Multivitamin with Folic acid: Yes Nondenominational or heritage: No Would refuse blood transfusion if medically necessary: No Are you currently employed? Yes, Occupation: [employer] Do you have any history of depression, anxiety, PTSD, eating disorders or other mood problems: No Do you have any safety concerns or history of traumatic events that you would like to discuss with your provider: No How often does this describe you? I don't have enough money to pay my bills: Never Within the past 12 months, have you worried that your food would run out before you had money to buy more: Never In the past 12 months, has lack of reliable transportation kept you from going to medical appointments or work, or from keeping things needed for daily living: Never In the past 12 months, have you had any concerns about having a place to live, or about the condition or quality of your housing: Never Are there any cultural or spiritual needs we should be aware of: No Over the past two weeks have you felt down, depressed, or hopeless: Negative Over the past two weeks have you felt little interest or pleasure in doing things: Negative GENETIC SCREENING: Partner present: Yes Patient verbalized knowledge of partner family health history: Yes Do you or your partner have any personal or family history of defects not previously discussed: No Do you have history of a complicated by anomaly, genetic condition, or demise: No Marital Status:Committed relationship Partner: Name: Jose Torres Age: 35 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 negative cardiology work-up PAST SURGICAL HISTORY Procedure Laterality Date ARTHROSCOPY KNEE DIAGNOSTIC W/WO SYNOVIAL BX SPX Bilateral x2 CERVIX UTERI CONIZA LP ELCTRO EXCI 2021 DANDC, DIAG AND/OR THERAPEUTIC 2009 Current Outpatient Medications Medication Sig Dispense Refill prental multivitamin 27 mg iron- 800 mcg tablet Take 1 tablet by mouth once daily. No current facility-administered medications for this visit. Allergies As of Date: 11/13/2022 Allergen Noted Reaction PENICILLINS 11/04/2022 Hives SOAP 11/04/2022 Rash WOOL 11/04/2022 Hives Fully Assessed 11/13/2022 Does patient have penicillin allergy: Yes, plan for allergy testing. REVIEW OF SYSTEMS: GENERAL: Negative for: Fever or Chills HEENT: Negative for: Headache, Impaired Vision, Ringing in Ears, Nosebleeds NECK: Negative for: Swelling, Pain, Stiffness RESPIRATORY: Negative for: Cough, Shortness of breath, Wheezing GASTROINTESTINAL: Negative for: Heartburn, Constipation, Diarrhea, Blood in stool, Vomiting MUSCULOSKELETAL: Negative for: Muscle or joint pain, stiffness, Joint swelling NEUROLOGIC/PSYCHIATRIC: Negative for: Weakness, Paralysis, Numbness, Tingling, Tremor, Anxiety, Depression, Memory loss SKIN: Negative for: Rash, Itching GENITOURINARY: Negative for: vaginal itching, vaginal discharge, hematuria or dysuria PHYSICAL EXAM: BP 96/64 Ht 5' 0 (1.52m) Wt 162 lb (73.5kg) LMP 09/06/2022 BMI 31.64 kg/(m2). GENERAL: pleasant in no apparent distress DERMATOLOGY: Normal, without lesions, non-icteric, and non-hirsute NECK: Supple, full range of motion, no adenopathy, and thyroid normal CHEST: Normal inspiratory effort BREAST: soft, non-tender, symmetric, no dominant mass, normal nipple-areolar complex, no lymphadenopathy, and no nipple discharge ABDOMEN: soft, non-tender, and no masses NEURO: alert and oriented x3,exam grossly non-focal PELVIS: External genitalia normal without lesions. Perineal body intact. No vaginal or cervical lesions. Cervix closed. Uterus 10 week size. No adnexal masses or tenderness. Clinical Pelvimetry: Pelvimetry clinically assessed as adequate Limited OB ultrasound exam: single intrauterine , positive cardiac activity, crown-rump length 9w4d, and normal bilateral adnexa. FHR 170 OB Risk Screening: Completed, positive findings include: Patient will be less than 17 or greater than 34 at the time of Delivery SBIRT Lizette Mitchell was given the 4P's screening tool. Lizette answered as follows: OB Opioid Screening - Last Recorded (since 02/16/2022) Did any of your parents have a problem with alcohol or other drug use? Yes father-drug Does your partner have a problem with alcohol or other drug use? No In the past, have you had difficulties in your life because of alcohol or other drugs, including prescription medications? No In the past month have you drunk any alcohol or used other drugs? No Are you taking medication for pain during the either prescribed or not? No Based on the screen and further questions, she is considered at Low risk due to:No past or current use. Positive reinforcement of current behavior. Plan to rescreen early third trimester. Terence Collazo APRN.CNMASSESSMENT: 37 year old at 9w5d wks gestational age PLAN: 1) Patient oriented to practice. Patient given new OB orientation folder. Discussed nutrition, folic acid supplementation, dietary guidelines, exercise, smoking, alcohol, caffeine, and drug use. Discussed gestational weight gain guidelines. Discussed routine OB labs including STD/HIV. Discussed how to access Your guide to a health and the Latent Fingerprint Examiner. OB Community care order placed. Discussed aneuploidy and carrier screening. Regarding aneuploidy screening, nuchal translucency/first trimester early anatomy ultrasound and NIPT were discussed. Regarding carrier screening, the myriad screen was discussed. The risks/benefits and limitations of NIPT/aneuploidy screening were reviewed including the potential for false negative and false positive results. We discussed the availability of professional-society guided carrier screening and reviewed the conditions screened and limitations of screening. The availability of genetic counseling was reviewed. Information on aneuploidy/carrier screening was provided. The patient chooses: Aneuploidy screening: is uncertain. She will call back if she wants to proceed with screening. Pt aware of timing. and Carrier screening: Accepts Discussed hemoglobin electrophoresis. Patient: Accepts Patient has penicillin allergy, plan for allergy testing. 2) AMA: Aneuploidy screening reviewed 3) ASA 162 mg PO once daily after 12 weeks for prevention. Follow up in 4 weeks or sooner prn. Terence Collazo APRN.CNM PROGRESS Observed: 11/04/2022 11:58 AM Status: COMPLETED Source: [facility] HNO ID: [id number] Author: Lena Zamora RN Service: ? Author Type: ? Type: Progress Notes Filed: 11/04/2022 12:05 PM Note Text: # 1 - Date: 2009, Sex: None, Weight: None, GA: 10w0d, Delivery: MISSED AB, Apgar1: None, Apgar5: None, Living: None, Comments: DANFL # 2 - Date: 07/23/11, Sex: Female, Weight: 5 lb 6 oz (2.438 kg), GA: 38w0d, Delivery: Vaginal, Spontaneous, Apgar1: None, Apgar5: None, Living: Living, Comments: elective induction for NRFHRP-pit and lewis ball # 3 - Date: 2020, Sex: None, Weight: None, GA: 8w0d, Delivery: None, Apgar1: None, Apgar5: None, Living: None, Comments: No ERASMO # 4 - Date: None, Sex: None, Weight: None, GA: None, Delivery: None, Apgar1: None, Apgar5: None, Living: None, Comments: None CNNURSE Observed: 11/04/2022 9:30 AM Status: COMPLETED Source: [facility] Nurse Visit (OBGYWM) LIZETTE MITCHELL ([id number]) 1985 F Date Time Provider Department 11/04/22 9:30 AM NURSE [facility] OBGYWM During your visit today, we recorded the following information about you: Last Period 09/06/22 Lena Zamora RN 11/04/2022 12:05 PM Signed # 1 - Date: 2009, Sex: None, Weight: None, GA: 10w0d, Delivery: MISSED AB, Apgar1: None, Apgar5: None, Living: None, Comments: ERASMO # 2 - Date: 07/23/11, Sex: Female, Weight: 5 lb 6 oz (2.438 kg), GA: 38w0d, Delivery: Vaginal, Spontaneous, Apgar1: None, Apgar5: None, Living: Living, Comments: elective induction for NRFHRP-pit and lewis ball # 3 - Date: 2020, Sex: None, Weight: None, GA: 8w0d, Delivery: None, Apgar1: None, Apgar5: None, Living: None, Comments: No ERASMO # 4 - Date: None, Sex: None, Weight: None, GA: None, Delivery: None, Apgar1: None, Apgar5: None, Living: None, Comments: None Lena Zamora RN 11/04/2022 12:05 PM Signed [facility] EM[facility]GENCY [facility]PARTMENT HEALTH VISIT This Team Access Model visit is a phone encounter. It required patient-provider interaction for the medical decision making as documented below. Father of the baby is involved. He is not the father of her other child. Patient recently moved back to [place] from [place]. She is 37 years of age. Advanced maternal age discussed. Noninvasive and invasive testing options discussed. Patient considering nuchal ultrasound and maternity 21 testing. Contact information for integrated genetics given to patient to check on insurance coverage. Patient states she had a LEEP done in [place] in 2021. I have asked patient to obtain her medical records from the doctor who did her LEEP. Our fax number was provided to her. Discussed increased risk of labor due to LEEP. Patient states that she had a cardiac work-up when she was 20 years old due to palpitations. She states that the palpitations are lessening as she ages. She states that she was told that it was caused by stress. States she has not seen a producer arborist manager since since 2010. Patient quit smoking 2 weeks ago. Discussed risks of smoking during and advised patient to continue not smoking. Patient declined genetic carrier screening testing.Lena Zamora RN Allergies As of Date: 11/04/2022 Noted Allergy Reaction PENICILLINS 11/04/2022 4 - Hives SOAP 11/04/2022 2 - Rash Comments: Dial Soap only WOOL 11/04/2022 4 - Hives Date Reviewed: 11/04/2022 Reviewed by: Lena Zamora RN - Fully Assessed Reason for Visit: Care [86] Primary Visit Diagnosis:Supervision of high risk , antepartum [O09.90] Other Visit Diagnoses:Antepartum multigravida of advanced maternal age [O09.529] History of cervical LEEP biopsy affecting care of mother, antepartum [O34.40, Z98.890] History of palpitations [Z87.898] Quit smoking [Z87.891] Prescriptions as of 11/04/2022 - prental multivitamin 27 mg iron- 800 mcg tablet Take 1 tablet by mouth once daily. Problem List As Of Date 11/04/2022 Noted Resolved Antepartum multigravida of advanced maternal ag*11/04/2022 History of cervical LEEP biopsy affecting care *11/04/2022 History of palpitations [Z87.898] 11/04/2022 Quit smoking [Z87.891] 11/04/2022 Disposition: Return in about 9 days (around 11/13/2022) for New OB with Dr. Rogers. Follow-up and Disposition History for Encounter Date Provider Department Center 11/04/2022 [id number] [facility] KEYONA Terry Encounter Status:Closed by LENA ZAMORA RN on 11/04/22 ALLERGIES DATE TYPE / CODE NAME / CODE REACTION SEVERITY SOURCE 11/04/2022 Drug Class/990873003(SNOM ED CT) PENICILLINS HIVES [facility] 11/04/2022 DRUG INGREDI/[id number](SN OMED CT) SOAP RASH [facility] 11/04/2022 DRUG INGREDI/[id number](SN OMED CT) WOOL [facility] ENCOUNTERS ADMIT/DISCHARGE ACCOUNT NUMBER ADMITTING ENCOUNTER CLASS LOC ATION SOURCE 04/18/2023 [id number] Ambulatory [facility] ing:[facility] 03/26/2023/ 3 [id number] Ambulatory [facility] Hospital[facility] ing:OB [facility] 03/18/2023/ 3 [id number] Ambulatory [facility] 03/13/2023/ 3 [id number] Ambulatory [facility] ing:[facility] 03/13/2023/ 3 [id number] Ambulatory [facility] 02/19/2023/ 3 [id number] Ambulatory [facility] HospitalBuild ing:OB [facility] 01/22/2023/ 3 [id number] Ambulatory [facility] HospitalBuild ing:[facility] 01/22/2023/ 3 [id number] Ambulatory [facility] ing:[facility] 12/25/2022/ 3 [id number] Ambulatory [facility] ing:[facility] 12/25/2022/06/14 3 [id number] Ambulatory [facility]Build ing:[facility] 11/27/2022/ 3 [id number] Ambulatory [facility] HospitalBuild ing:[facility]2 [facility] 11/27/2022/ 3 [id number] Ambulatory [facility] ing:[facility] 11/27/2022/ 3 [id number] Ambulatory [facility] ing:[facility] 11/25/2022 [id number] Ambulatory [facility] ing:[facility] 11/13/2022/ 3 [id number] Ambulatory [facility] ing:[facility] 11/04/2022/ 3 [id number] Ambulatory [facility] ing:[facility] PAYERS ENCOUNTER GUARANTOR PAYER SUBSCRIBER SOURCE 04/18/2023 Primary Insurance:BLUE CARD PPO OOSPolicy Number: [id number] nava Date:7336-12-43Ailo Name:Harjeet BRANDT: [id number] [address] 03/26/2023 Primary Insurance:BLUE CARD PPO OOSPolicy Number: [id number] nava Date:4819-98-93Omht Name:Harjeet BRANDT: [id number] [place], [place] [address] [place] [address] 03/18/2023 Primary Insurance:BLUE CARD PPO OOSPolicy Number: [id number] nava Date:2698-05-44Ytma Name:Harjeet BRANDT: [id number] [place], [place] [address] [place] [address] 03/13/2023 Primary Insurance:BLUE CARD PPO OOSPolicy Number: [id number] nava Date:7199-74-19Rngd Name:Harjeet BRANDT: [id number] [place] [address] [facility] 03/13/2023 Primary Insurance:BLUE CARD PPO OOSPolicy Number: [id number] nava Date:8575-35-17Wwcl Name:Harjeet OBANDOOB: [id number] [place] [address] [facility] 02/19/2023 Primary Insurance:BLUE CARD PPO OOSPolicy Number: [id number] nava Date:6425-68-16Hnse Name:Harjeet OBANDOOB: [id number] [place], [place] [address] [place] [address] 01/22/2023 Primary Insurance:BLUE CARD PPO OOSPolicy Number: [id number] nava Date:9443-32-38Uqnl Name:Harjeet OBANDOOB: [id number] [place], [place] [address] [place] [address] 01/22/2023 Primary Insurance:BLUE CARD PPO OOSPolicy Number: [id number] nava Date:3038-77-30Ivuy Name:Harjeet OBANDOOB: [id number] [place], [place] [address] [place] [address] 12/25/2022 Primary Insurance:BLUE CARD PPO OOSPolicy Number: [id number] nava Date:6212-30-96Vnid Name:Harjeet OBANDOOB: [id number] [place], [place] [address] [place] [address] 12/25/2022 Primary Insurance:BLUE CARD PPO OOSPolicy Number: [id number] nava Date:3625-30-17Bwie Name:Harjeet OBANDOOB: [id number] [place], [place] [address] [place] [address] 11/27/2022 Primary Insurance:BLUE CARD PPO OOSPolicy Number: [id number] nava Date:8822-44-52Qhgr Name:Harjeet OBANDOCAROLA: [id number] [place] [address] [facility] 11/27/2022 Primary Insurance:BLUE CARD PPO OOSPolicy Number: [id number] nava Date:3212-08-15Hgne Name:Harjeet OBANDOCAROLA: [id number] [place] [address] [facility] 11/27/2022 Primary Insurance:BLUE CARD PPO OOSPolicy Number: [id number] nava Date:8324-26-69Bqwy Name:Harjeet OBANDOCAROLA: [id number] [place], [place] [address] [place] [address] 11/25/2022 Primary Insurance:BLUE CARD PPO OOSPolicy Number: [id number] nava Date:6574-84-30Hxie Name:Harjeet YODER: [id number] [place], [place] [address] [place] [address] 11/13/2022 Primary Insurance:BLUE CARD PPO OOSPolicy Number: [id number] nava Date:8534-24-51Zzna Name:Harjeet YODER: [id number] [place] [address] [facility] 11/04/2022 Primary Insurance:BLUE CARD PPO OOSPolicy Number: [id number] nava Date:3928-69-07Ukko Name:Harjeet YODER: [id number] [place], [place] [id number] [place] [address]
--- OUTSIDE RECORDS SUMMARY | 2023-04-18 18:27 | XMS RPT_ITS ---
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 03/18/2023 Active Elevated glucose / R73.09(ICD-10) NA Active [facility] 03/13/2023 Active 23 weeks gestati on of / Z3A.23(ICD-10) NA Active [facility] 03/13/2023 Active Multigravida of advanced maternal age in second trimester / O09.522(ICD-10) NA Active [facility] 03/13/2023 Active Other obesity du e to excess calories affecting in second trimester / O99.212(ICD-10) NA Active [facility] 03/13/2023 Active Other obesity du e to excess calories affecting in second trimester / E66.09(ICD-10) NA Active [facility] 12/25/2022 Active AMA (advanced ma ternal age) multigravida 35+, second trimester / O09.522(ICD-10) ELSA LOW Active [facility] 12/25/2022 Active High-risk pregna ncy in second trimester / O09.92(ICD-10) ELSA LOW Active [facility] 11/13/2022 Active Supervision of o ther high risk pregnancies, first trimester / O09.891(ICD-10) AMY MCGINNIS Active [facility] 11/04/2022 Active History of cervi regina LEEP biopsy affecting care of mother, antepartum / O34.40(ICD-10) AMY MCGINNIS Active [facility] 11/04/2022 Active History of cervi regina LEEP biopsy affecting care of mother, antepartum / Z98.890(ICD-10) AMY MCGINNIS Active [facility] 12/25/2022 Active 15 weeks gestati on of / Z3A.15(ICD-10) AMY MCGINNIS Active [facility] 11/27/2022 Active History of thyro id disease / Z86.39(ICD-10) NA Active [facility] 11/27/2022 Active 11 weeks gestati on of / Z3A.11(ICD-10) TERENCE COLLAZO Active [facility] 11/27/2022 Active Encounter for nu chal translucency testing / Z36.82(ICD-10) NA Active [facility] 11/27/2022 Active 9 weeks gestatio n of / Z3A.09(ICD-10) NA Active [facility] 11/25/2022 Active with uncertain dates in first trimester / Z34.91(ICD-10) TERENCE COLLAZO Active [facility] PROCEDURES No Procedure Records Found RESULTS GLUCOSE GEST, 3 HOUR Collected: 023 11:02 AM Status: F Source: [facility] REPOSITORY Order Comment: Specimen Type : BLOOD SPECIMEN Ordering Facility: [facility] Address: [address] [place] [address] TYPE CODE TESTS RESULT OUT OF RANGE REFERENCE UNITS LAB 36977-8(LOINC) Glucose 3h p chal SerPl-mCnc 104 74-139 mg/dL Result Comment: [place] Con herberth of Obstetricians and Gynecologists (Olea/Franco) guidelines state gestational diabetes mellitus is present when 2 or more of the plasma glucose concentrations meet or exceed the following levels: fastin mg/dl, 1 hr: 180 mg/dl, 2 hr: 155 mg/dl, and 3 hr: 140 mg/dl. Performed By: #### GTGST3 ## ## [facility] CLIA [id number] [address] [place] [address] GLUCOSE GEST, 2 HOUR Collected: 023 10:02 AM Status: F Source: [facility] REPOSITORY Order Comment: Specimen Type : BLOOD SPECIMEN Ordering Facility: [facility] Address: [address] [place] [address] TYPE CODE TESTS RESULT OUT OF RANGE REFERENCE UNITS LAB 92061-5(LOINC) Glucose 2h p chal SerPl-mCnc 110 74-154 mg/dL Result Comment: [place] Con herberth of Obstetricians and Gynecologists (Olea/Coustan) guidelines state gestational diabetes mellitus is present when 2 or more of the plasma glucose concentrations meet or exceed the following levels: fastin mg/dl, 1 hr: 180 mg/dl, 2 hr: 155 mg/dl, and 3 hr: 140 mg/dl. Performed By: #### GTGST2 ## ## [facility] CLIA [id number] [address] [place] [address] OF [facility] GLUCOSE GEST, 1 HOUR Collected: 023 9:04 AM Status: F Source: [facility] REPOSITORY Order Comment: Specimen Type : BLOOD SPECIMEN Ordering Facility: [facility] Address: [address] [place] [address] TYPE CODE TESTS RESULT OUT OF RANGE REFERENCE UNITS LAB 21667-7(LOINC) Glucose 1h p chal SerPl-mCnc 177 74-179 mg/dL Result Comment: [place] Con herberth of Obstetricians and Gynecologists (Olea/Coustan) guidelines state gestational diabetes mellitus is present when 2 or more of the plasma glucose concentrations meet or exceed the following levels: fastin mg/dl, 1 hr: 180 mg/dl, 2 hr: 155 mg/dl, and 3 hr: 140 mg/dl. Performed By: #### GTGST1 ## ## [facility] CLIA [id number] [address] [place], [place] [id number] [place] GLUCOSE GEST, FASTING Collected: 2022 7:51 AM Status: F Source: [facility] REPOSITORY Order Comment: Specimen Type : BLOOD SPECIMEN Ordering Facility: [facility] Address: [address] [place], [place] [address] TYPE CODE TESTS RESULT OUT OF RANGE REFERENCE UNITS LAB 1558-6(LOINC) Glucose p fast SerPl-mCnc 86 74-94 mg/dL Result Comment: [place] Con herberth of Obstetricians and Gynecologists (Olea/Coustan) guidelines state gestational diabetes mellitus is present when 2 or more of the plasma glucose concentrations meet or exceed the following levels: fastin mg/dl, 1 hr: 180 mg/dl, 2 hr: 155 mg/dl, and 3 hr: 140 mg/dl. Performed By: #### GTGSTF ## ## [facility] CLIA [id number] [address] [place] [address] [place] GEST GLUC SCREEN, 1-HR, 50 G M, NON-FASTING Collected: 03/13/2023 1:40 PM Status: F Source: [facility] REPOSITORY Order Comment: Specimen Type : BLOOD SPECIMEN Ordering Facility: [facility] Address: [address] [place], [place] [address] TYPE CODE TESTS RESULT OUT OF RANGE REFERENCE UNITS LAB 2345-7(LOINC) Glucose SerPl-mCnc 164 High 74-134 mg/dL Result Comment: [place] Con herberth of Obstetricians and Gynecologists (Olea/Coustan) guidelines state a gestational diabetes mellitus positive screen is made, in women not previously diagnosed with overt diabetes, when the 1 hr plasma glucose level is equal to or above 140 mg/dL. The [facility] and [facility] recommends a 135 mg/dL cutoff. Performed By: #### GLTGST ## ## [facility] CLIA [id number] [address] [place] [address] [place] CBC W AUTO DIFF BLD Collected: 03/13/2023 1:[address] atus: F Source: [facility] REPOSITORY Order Comment: Specimen Type : BLOOD SPECIMEN Ordering Facility: [facility] Address: [place] [address] TYPE CODE TESTS RESULT OUT OF RANGE REFERENCE UNITS LAB 6690-2([facility]) WBC # Bld Auto 9.29 3.70-11.00 k/uL LAB 789-8([facility]) RBC # Bld Auto 3.93 3.90-5.20 m/ uL LAB 718-7([facility]) Hgb Bld-mCnc 12.0 11.5-15.5 g/dL LAB 4544-3([facility]) Hct VFr Bld Auto 35.3 Low 36.0-46.0 % LAB 787-2([facility]) MCV RBC Auto 89.8 80.0-100.0 fL LAB 785-6([facility]) MCH RBC Qn Auto 30.5 26.0-34.0 p g LAB 786-4([facility]) MCHC RBC Auto-mCnc 34.0 30.5-36.0 g/dL LAB 81319-1([facility]) RDW RBC-Rto 12.9 11.5-15.0 % LAB 777-3([facility]) Platelet # Bld Auto 259 150-400 k/uL LAB 75315-2([facility]) PMV Bld Auto 9.1 9.0-12.7 fL LAB 770-8([facility]) Neutrophils/leuk NFr Bld Auto 66.5 % LAB 751-8([facility]) Neutrophils # Bld Auto 6.17 1.45-7.50 k/uL LAB 736-9([facility]) Lymphocytes/leuk NFr Bld Auto 18.3 % LAB 731-0([facility]) Lymphocytes # Bld Auto 1.70 1.00-4.00 k/uL LAB 5905-5([facility]) Monocytes/leuk NFr Bld Auto 8.8 % LAB 742-7(INC) Monocytes # Bld Auto 0.82 <0.87 k/uL LAB 713-8([facility]) Eosinophil/leuk NFr Bld Auto 5.7 % LAB 711-2([facility]) Eosinophil # Bld Auto 0.53 High <0.46 k/uL LAB 706-2([facility]) Basophils/leuk NFr Bld Auto 0.3 % LAB 704-7(LOINC) Basophils # Bld Auto 0.03 <0.11 k/uL LAB 28188-9(LOINC) Imm Granulocytes/virginie k NFr Bld Auto 0.4 % LAB 67075-3(LOINC) Imm Granulocytes # Bld Auto 0.04 <0.10 k/uL LAB 56294-3(LOINC) nRBC/100 WBC Bld-Rto 0.0 /100 WBC LAB 771-6(LOINC) nRBC # Bld Auto <0.01 <0.01 k/u L LAB 00071-9(LOINC) Differential method Bld Auto Performed By: #### 57108-4 # ### [facility] CLIA [id number] [address] [place] [address] OF [place] REAGIN+T PALLIDUM IGG+IGM SERPL-IMP Collected: 03/13/2023 1:40 PM Status: F Source: [facility] REPOSITORY Order Comment: Specimen Type : BLOOD SPECIMEN Ordering Facility: [facility] Address: [address] [place] [address] TYPE CODE TESTS RESULT OUT OF RANGE REFERENCE UNITS LAB 53556-8(INC) T pallidum IgG+IgM Ser Ql IA Nonreactive Nonreactive LAB 00028-5([facility]) Reagin+T pallidum IgG+IgM SerPl-Imp Cannot exclude recent Treponemal infection if specimen collected within 7-10 days after appearance of suspect lesions or 2-3 weeks after an exposure. Clinical correlation is required. Performed By: #### 93637-0 # ### [facility] CLIA [id number] [address] [place] [address] OF [facility] PROGRESS Observed: 03/13/2023 1:31 PM Status: COMPLETED Source: [facility] REPOSITORY HNO ID: [id number] Author: Maru Liz LPN Service: ? Author [...] severely ill: Yes Patient denies history of Guillain-Millwood Syndrome (a severe paralytic illness): No Tdap Adacel injection was given without incident. See immunizations for details of immunizations administered today. VIS sheet provided: Yes Provider Joy Rosado CNM was present in office at time of injection. Maru GARCIA Observed: 03/13/2023 12:00 AM Status: COMPLETED Source: [facility] REPOSITORY Telephone (OBGYWM) LIZETTE WOOD ([id number]) 1985 F Date Time Provider Department 03/13/23 [...] Observed: 01/16/2023 12:00 AM Status: COMPLETED Source: [facility] REPOSITORY Telephone (OBMarvelWM) LIZTETE WOOD ([id number]) 1985 F Date Time Provider Department 01/16/23 GARO ROGERS OBMICHELEW During your visit today, we recorded the following information about you: Kiara Bee RN 01/16/2023 10:42 AM Signed Patient [...] significant other [facility] Omar Yost RN Allergies As of [...] Observed: 11/29/2022 12:00 AM Status: COMPLETED Source: [facility] REPOSITORY Telephone (CAROLAGYWM) LIZETTE WOOD ([id number]) 1985 F Date Time Provider Department 11/29/22 TERENCE COLLAZO During your visit today, we recorded the following information about you: Terence Collazo APRN.CNM 11/29/2022 9:07 AM Signed Patient was here for NT US and did not look into [id number] pricing. Called in waiting room but never [...] with patient. She does not want the [id number]. Thought she had the sequential screening drawn on Friday. Advised that the order had not been placed as we were waiting her decision. States that she told the lady at the vest front presser that she wanted the sequential screen and [...] Date Reviewed: 11/27/2022 Reviewed by: Dwight Parker Technical Sales Associate - Fully Assessed Reason for Visit: Patient [...] AB Collected: 9:36 AM Status: F Source: [facility] REPOSITORY Order Comment: Specimen Type : BLOOD SPECIMEN Ordering Facility: [facility] Address: [address] [place] [address] [place] [address] TYPE CODE TESTS RESULT OUT OF RANGE REFERENCE UNITS LAB RUBGQL RUBELLA IGG AB, QUAL Positive Positive Result Comment: The result s uggests recent or past exposure to Rubella virus or history of Rubella vaccination. Positive result may also be seen due to presence of passively-transferred antibodies. Please correlate with patient's history. Performed By: #### RUBIGG ## ## [facility] CLIA [id number] [address] [facility] DESK [id number] [place] [address] [facility] CBC PNL BLD AUTO Collected: 3 9:36 AM Status: F Source: [facility] REPOSITORY Order Comment: Specimen Type : BLOOD SPECIMEN Ordering Facility: [facility] Address: [address] [place] [address] TYPE CODE TESTS RESULT OUT OF RANGE [...] MCHC RBC Auto-mCnc 34.8 30.5-36.0 g/dL LAB 61142-1(LOINC) RDW RBC-Rto 13.1 11.5-15.0 % LAB 777-3(LOINC) Platelet # Bld Auto 300 150-400 k/uL LAB 31933-7(LOINC) PMV Bld Auto 9.0 9.0-12.7 fL LAB 771-6(LOINC) nRBC # Bld Auto <0.01 <0.01 k/uL Performed By: #### 11225-2 # ### [facility] CLIA [id number] [address] [place] [address] [place] TYPE + SCREEN Collected: 11/27/2022 9:36 AM Status: F Source: [facility] REPOSITORY Order Comment: Specimen Type : BLOOD SPECIMEN Ordering Facility: [facility] Address: [address] [place], [place] [address] TYPE CODE TESTS RESULT OUT OF RANGE REFERENCE UNITS LAB %ABO ABO O LAB %RH RH Positive LAB % ANTIBODY SCREEN Negative LAB %EXX TYPE AND SCREEN EXPIRATION 11/30/2022 23:59 LAB PREVAB HISTORICAL AB SCR STATUS NEGATIVE Performed By: #### TSPN #### [facility] CLIA [id number] [address] [place] [address] [place] HBV SURFACE AG SER QL Collected: 2022 9:36 AM Status: F Source: [facility] REPOSITORY Order Comment: Specimen Type : BLOOD SPECIMEN Ordering Facility: [facility] Address: [address] [place] [address] TYPE CODE TESTS RESULT OUT OF RANGE REFERENCE UNITS LAB 5195-3([facility]) HBV surface Ag Ser Ql Negative Negative Performed By: #### 5195-3, 3 1201-7, 04868-2 #### [facility] CLIA [id number] [address] [place] [address] [place] HIV1+2 AB SERPL QL IA Collected: 2022 9:36 AM Status: F Source: [facility] REPOSITORY Order Comment: Specimen Type : BLOOD SPECIMEN Ordering Facility: [facility] Address: [address] [place], [place] [address] TYPE CODE TESTS RESULT OUT OF RANGE REFERENCE UNITS LAB 10002-3(LOINC) HIV 1+2 Ab+HIV1 p24 Ag SerPl Ql IA Nonreactive Nonreactive LAB 33994-4(LOINC) HIV 1 AND 2 Ab SerPl IA.rapid Result Comment: Test not ind icated. LAB HIVITP HIVINT Result Comment: No evidence of HIV-1 or HIV-2 infection. Should recent infection be suspected, repeat testing may be considered 2-3 weeks after this draw. [place] Rev. Code 3701.243(E): This information has been [...] diagnoses. Performed By: #### 5195-3, 3 1201-7, 99927-9 #### [facility] CLIA [id number] [facility] [address] OF [place] REAGIN+T PALLIDUM IGG+IGM SERPL-IMP Collected: 11/27/2022 9:36 AM Status: F Source: [facility] REPOSITORY Order Comment: Specimen Type : BLOOD SPECIMEN Ordering Facility: [facility] Address: [address] [place] [address] TYPE CODE TESTS RESULT OUT OF RANGE REFERENCE UNITS LAB 61592-0(LOINC) T pallidum IgG+IgM Ser Ql IA Nonreactive Nonreactive LAB SYPHIN SYPHILIS INTERPRETATION Cannot exclude recent Treponemal infection if specimen collected within 7-10 days after appearance of suspect lesions or 2-3 weeks after an exposure. Clinical correlation is required. Performed By: #### 5195-3, 3 1201-7, 95083-1 #### [facility] CLIA [id number] [address] [place] [address] HCV AB SER QL Collected: 9:36 AM Status: F Source: [facility] REPOSITORY Order Comment: Specimen Type : BLOOD SPECIMEN Ordering Facility: [facility] Address: [address] [place] [address] TYPE CODE TESTS RESULT OUT OF RANGE REFERENCE UNITS LAB 53138-6(LOINC) HCV Ab Ser Ql Negative Negative Result Comment: The result s uggests no evidence of active infection with Hepatitis C virus. Should recent infection be suspected, repeat testing may be considered 4- 6 weeks after this draw. Performed By: #### 44916-8 # ### [facility] CLIA [id number] [address] [place] [address] [place] TSH SERPL-ACNC Collected: 9:36 AM Status: F Source: [facility] REPOSITORY Order Comment: Specimen Type : BLOOD SPECIMEN Ordering Facility: [facility] Address: [address] [place], [place] [address] TYPE CODE TESTS RESULT OUT OF RANGE [...] Oliver, et al. 2017 Guidelines of the [place] Thy[employer] Association for the Diagnosis and Management of Thyroid Disease during and the . Thyroid, 2017:27:3:315-389. Performed By: #### 3016-3 ## ## [facility] CLIA [id number] [address] [place] [address] [place] BACTERIA UR CULT Observed: 11/13/2022 9:35 AM Status: F Source: [facility] REPOSITORY ORGANISM ID: 1 10,000 -<50,000 CFU/ml Normal urogenital alaina Performed By: #### 630-4 ### # [facility] CLIA [id number] [address] [place] [address] [place] C TRACH+GC DNA SPEC QL YOLANDA+PROBE Collected: 11/13/2022 9:35 AM Status: F Source: [facility] REPOSITORY Order Comment: Specimen Type : SWAB Ordering Facility: [facility] Address: [address] [place] [address] TYPE CODE TESTS RESULT OUT OF RANGE REFERENCE UNITS LAB 26610-5(LOINC ) N gonorrhoea DNA Spec Ql YOLANDA+probe Negative for Neisseria gonorrhoeae by amplification Negative for Neisseria gonorrhoeae by amplification LAB 72580-7([facility] ) C trach DNA Spec Ql YOLANDA+probe Negative for Chlamydia trachomatis by amplification Negative for Chlamydia trachomatis by amplificaton Performed By: #### 56853-6 # ### [facility] CLIA [id number] [address] [place] [address] [place] PROGRESS Observed: 11/13/2022 8:45 AM Status: COMPLETED Source: [facility] REPOSITORY HNO ID: [id number] Author: Terence Collazo APRN.CNM Service: ? Author Type: Metal Box Maker Type: Progress Notes Filed: 11/13/2022 9:24 PM [...] Prior treatment for cervical dysplasia: LEEP at [facility] History of STDs: HPV Tobacco use: Yes, stopped 2 weeks ago after positive test Caffeine use: Yes Drug use: No Alcohol use: No Multivitamin with Folic acid: Yes Druze or heritage: No Would refuse blood transfusion [...] Your guide to a health and the Motivational Speaker. OB Community care order placed. Discussed aneuploidy [...] Observed: 11/04/2022 11:58 AM Status: COMPLETED Source: [facility] REPOSITORY HNO ID: [id number] Author: Lena Zamora RN Service: ? Author Type: ? Type: Progress Notes Filed: 11/04/2022 12:05 PM Note Text: # 1 - Date: 2009, Sex: None, Weight: None, GA: 10w0d, Delivery: MISSED AB, Apgar1: None, Apgar5: None, Living: None, Comments: DANWY # 2 - Date: 07/23/11, Sex: Female, [...] Observed: 11/04/2022 9:30 AM Status: COMPLETED Source: [facility] REPOSITORY Nurse Visit (OBGYWM) LIZETTE MITCHELL ([id number]) 1985 F Date Time Provider Department 11/04/22 9:30 AM NURSE PNOB [facility] OBGYWM During your visit today, we [...] Lena Zamora RN 11/04/2022 12:05 PM Signed [facility] This Team Access Model visit is a phone encounter. It required patient-provider interaction for the medical decision making as documented below. Father of the baby is involved. He is not the father of her other child. Patient recently moved back to [place] from [place]. She is 37 years of age. Advanced maternal age discussed. Noninvasive and invasive testing options discussed. Patient considering nuchal ultrasound and maternity 21 testing. Contact information for integrated genetics given to patient to check on insurance coverage. Patient states she had a LEEP done in [place] in 2021. I have asked patient to [...] stress. States she has not seen a quiller operator since since 2010. Patient quit smoking 2 [...] for Encounter Date Provider Department Center 11/04/2022 [id number] PNOB [facility] KEYONA Terry Encounter Status:Closed by LENA ZAMORA RN on 11/04/22 ALLERGIES DATE TYPE / CODE NAME / CODE REACTION SEVERITY SOURCE 11/04/2022 Drug Class/364205869(SNOM ED CT) PENICILLINS HIVES [facility] 11/04/2022 DRUG INGREDI/468437027(SN OMED CT) SOAP RASH [facility] 11/04/2022 DRUG INGREDI/[id number](SN OMED CT) [facility] ENCOUNTERS ADMIT/DISCHARGE ACCOUNT NUMBER ADMITTING ENCOUNTER CLASS LOC ATION SOURCE 04/18/2023 [id number] Ambulatory [facility] 03/26/2023/ 3 [id number] Ambulatory [facility]:OB [facility] 03/18/2023/ 3 [id number] Ambulatory [facility] 03/13/2023/ 3 [id number] Ambulatory [facility] ing:[facility] 03/13/2023/ 3 [id number] Ambulatory [facility] 02/19/2023/ 3 [id number] Ambulatory [facility] ing:OB [facility] 01/22/2023/ 3 [id number] Ambulatory [facility] 01/22/2023/ 3 [id number] Ambulatory [facility] ing:[facility] 12/25/2022/ 3 [id number] Ambulatory [facility] 12/25/2022/06/14 3 [id number] Ambulatory [facility] ing:W[facility]B [facility] 11/27/2022/ 3 [id number] Ambulatory [facility] Hospital[facility] ing:WOL2 [facility] 11/27/2022/ 3 [id number] Ambulatory [facility] ing:[facility] 11/27/2022/ 3 [id number] Ambulatory [facility] ing:[facility] 11/25/2022 [id number] Ambulatory [facility] ing:[facility] 11/13/2022/ 3 [id number] Ambulatory [facility] ing:[facility] 11/04/2022/ 3 [id number] Ambulatory [facility] ing:[facility] PAYERS ENCOUNTER GUARANTOR PAYER SUBSCRIBER SOURCE 04/18/2023 Primary Insurance:BLUE CARD PPO OOSPolicy Number: [id number] nava Date:8703-11-03Wipv Name:Harjeet BRANDT: [id number] [address] 03/26/2023 Primary Insurance:BLUE CARD PPO OOSPolicy Number: [id number] nava Date:9847-38-66Gyde Name:Harjeet BRANDT: [id number] [place], [place] [address] [place] [address] 03/18/2023 Primary Insurance:BLUE CARD PPO OOSPolicy Number: [id number] nava Date:4776-23-73Pnvl Name:Harjeet BRANDT: [id number] [place], [place] [address] [place] [address] 03/13/2023 Primary Insurance:BLUE CARD PPO OOSPolicy Number: [id number] nava Date:8503-85-42Ekwq Name:Harjeet BRANDT: [id number] [place] [address] [facility] 03/13/2023 Primary Insurance:BLUE CARD PPO OOSPolicy Number: [id number] nava Date:0782-00-03Bqdb Name:Harjeet OBANDOOB: [id number] [place] [address] [facility] 02/19/2023 Primary Insurance:BLUE CARD PPO OOSPolicy Number: [id number] nava Date:3174-80-51Brlb Name:Harjeet OBANDOOB: [id number] [place], [place] [address] [place] [address] 01/22/2023 Primary Insurance:BLUE CARD PPO OOSPolicy Number: [id number] nava Date:9757-56-00Giql Name:Harjeet OBANDOOB: [id number] [place], [place] [address] [place] [address] 01/22/2023 Primary Insurance:BLUE CARD PPO OOSPolicy Number: [id number] nava Date:8770-51-83Nexk Name:Harjeet OBANDOOB: [id number] [place], [place] [address] [place] [address] 12/25/2022 Primary Insurance:BLUE CARD PPO OOSPolicy Number: [id number] nava Date:0551-52-33Axxd Name:Harjeet OBANDOOB: [id number] [place], [place] [address] [place] [address] 12/25/2022 Primary Insurance:BLUE CARD PPO OOSPolicy Number: [id number] nava Date:7119-77-16Lwyy Name:Harjeet OBANDOOB: [id number] [place], [place] [address] [place] [address] 11/27/2022 Primary Insurance:BLUE CARD PPO OOSPolicy Number: [id number] nava Date:1947-57-31Soii Name:Harjeet OBANDOCAROLA: [id number] [place] [address] [facility] 11/27/2022 Primary Insurance:BLUE CARD PPO OOSPolicy Number: [id number] nava Date:5846-21-65Zgep Name:Harjeet OBANDOCAROLA: [id number] [place] [address] [facility] 11/27/2022 Primary Insurance:BLUE CARD PPO OOSPolicy Number: [id number] nava Date:7188-40-34Jwno Name:Harjeet OBANDOCAROLA: [id number] [place], [place] [id number] [place] [address] 11/25/2022 Primary Insurance:BLUE CARD PPO OOSPolicy Number: [id number] nava Date:7744-14-75Ptek Name:Harjeet YODER: [id number] [place], [place] [id number] [place] [address] 11/13/2022 Primary Insurance:BLUE CARD PPO OOSPolicy Number: [id number] nava Date:7012-71-41Hrxm Name:Harjeet YODER: [id number] [place] [address] [facility] 11/04/2022 Primary Insurance:BLUE CARD PPO OOSPolicy Number: [id number] nava Date:3575-82-09Novs Name:Harjeet YODER: [id number] [place], [place] [address] [place] [address]
--- OUTSIDE RECORDS SUMMARY | 2023-04-18 18:27 | XMS RPT_ITS ---
Author Name Auto Generated Organization OHIP Care Team Providers Care Freight Brakeman Name Role Phone AMY MCGINNIS Attending Unavailable [...] DATE TYPE CONDITION / CODE ATTENDING STATUS [facility] 03/18/2023 Active Elevated glucose / R73.09(ICD-10) NA Active [facility] 03/13/2023 Active 23 weeks gestati on of / Z3A.23(ICD-10) NA Active [facility] 03/13/2023 Active Multigravida of advanced maternal age in second trimester / O09.522(ICD-10) NA Active [facility] 03/13/2023 Active Other obesity du e to excess calories affecting in second trimester / O99.212(ICD-10) NA Active [facility] 03/13/2023 Active Other obesity du e to excess calories affecting in second trimester / E66.09(ICD-10) NA Active [facility] 12/25/2022 Active AMA (advanced ma ternal age) multigravida 35+, second trimester / O09.522(ICD-10) ELSA LOW Active [facility] 12/25/2022 Active High-risk pregna ncy in second trimester / O09.92(ICD-10) ESLA LOW Active [facility] 11/13/2022 Active Supervision of o ther high risk pregnancies, first trimester / O09.891(ICD-10) AMY MCGINNIS Active [facility] 11/04/2022 Active History of cervi regina LEEP biopsy affecting care of mother, antepartum / O34.40(ICD-10) AMY MCGINNIS Active [facility] 11/04/2022 Active History of cervi regina LEEP biopsy affecting care of mother, antepartum / Z98.890(ICD-10) AMY MCGINNIS Active [facility] 12/25/2022 Active 15 weeks gestati on of / Z3A.15(ICD-10) AMY MCGINNIS Active [facility] 11/27/2022 Active History of thyro id disease / Z86.39(ICD-10) NA Active [facility] 11/27/2022 Active 11 weeks gestati on of / Z3A.11(ICD-10) TERENCE COLLAZO Active [facility] 11/27/2022 Active Encounter for nu chal translucency testing / Z36.82(ICD-10) NA Active [facility] 11/27/2022 Active 9 weeks gestatio n of / Z3A.09(ICD-10) NA Active [facility] 11/25/2022 Active with uncertain dates in first trimester / Z34.91(ICD-10) TERENCE COLLAZO Active [facility] PROCEDURES No Procedure Records Found RESULTS GLUCOSE GEST, 3 HOUR Collected: 023 11:02 AM Status: F Source: [facility] Order Comment: Specimen Type : BLOOD SPECIMEN Ordering Facility: [facility] Address: [address] [place] [address] TYPE CODE TESTS RESULT OUT OF RANGE REFERENCE UNITS LAB 82599-4(LOINC) Glucose 3h p chal SerPl-mCnc 104 74-139 mg/dL Result Comment: [place] Con herberth of Obstetricians and Gynecologists (Olea/Franco) guidelines state gestational diabetes mellitus is present when 2 or more of the plasma glucose concentrations meet or exceed the following levels: fastin mg/dl, 1 hr: 180 mg/dl, 2 hr: 155 mg/dl, and 3 hr: 140 mg/dl. Performed By: #### GTGST3 ## ## [facility] CLIA [id number] [address] [place] [address] GLUCOSE GEST, 2 HOUR Collected: 023 10:02 AM Status: F Source: [facility] Order Comment: Specimen Type : BLOOD SPECIMEN Ordering Facility: [facility] Address: [address] [place] [address] TYPE CODE TESTS RESULT OUT OF RANGE REFERENCE UNITS LAB 29873-0(LOINC) Glucose 2h p chal SerPl-mCnc 110 74-154 mg/dL Result Comment: [place] Con herberth of Obstetricians and Gynecologists (Olea/Coustan) guidelines state gestational diabetes mellitus is present when 2 or more of the plasma glucose concentrations meet or exceed the following levels: fastin mg/dl, 1 hr: 180 mg/dl, 2 hr: 155 mg/dl, and 3 hr: 140 mg/dl. Performed By: #### GTGST2 ## ## [facility] CLIA [id number] [address] [place] [address] OF [facility] GLUCOSE GEST, 1 HOUR Collected: 023 9:04 AM Status: F Source: [facility] Order Comment: Specimen Type : BLOOD SPECIMEN Ordering Facility: [facility] Address: [address] [place] [address] TYPE CODE TESTS RESULT OUT OF RANGE REFERENCE UNITS LAB 58077-8(LOINC) Glucose 1h p chal SerPl-mCnc 177 74-179 mg/dL Result Comment: [place] Con herberth of Obstetricians and Gynecologists (Olea/Coustan) guidelines state gestational diabetes mellitus is present when 2 or more of the plasma glucose concentrations meet or exceed the following levels: fastin mg/dl, 1 hr: 180 mg/dl, 2 hr: 155 mg/dl, and 3 hr: 140 mg/dl. Performed By: #### GTGST1 ## ## [facility] CLIA [id number] [address] [place], [place] [id number] [place] GLUCOSE GEST, FASTING Collected: 2022 7:51 AM Status: F Source: [facility] Order Comment: Specimen Type : BLOOD SPECIMEN Ordering Facility: [facility] Address: [address] [place], [place] [address] TYPE CODE TESTS RESULT OUT OF RANGE REFERENCE UNITS LAB 1558-6(LOINC) Glucose p fast SerPl-mCnc 86 74-94 mg/dL Result Comment: [place] Con herberth of Obstetricians and Gynecologists (Olea/Coustan) guidelines state gestational diabetes mellitus is present when 2 or more of the plasma glucose concentrations meet or exceed the following levels: fastin mg/dl, 1 hr: 180 mg/dl, 2 hr: 155 mg/dl, and 3 hr: 140 mg/dl. Performed By: #### GTGSTF ## ## [facility] CLIA [id number] [address] [place] [address] [place] GEST GLUC SCREEN, 1-HR, 50 G M, NON-FASTING Collected: 03/13/2023 1:40 PM Status: F Source: [facility] Order Comment: Specimen Type : BLOOD SPECIMEN Ordering Facility: [facility] Address: [address] [place], [place] [address] TYPE CODE TESTS RESULT OUT OF RANGE REFERENCE UNITS LAB 2345-7(LOINC) Glucose SerPl-mCnc 164 High 74-134 mg/dL Result Comment: [place] Con herberth of Obstetricians and Gynecologists (Olea/Coustan) guidelines state a gestational diabetes mellitus positive screen is made, in women not previously diagnosed with overt diabetes, when the 1 hr plasma glucose level is equal to or above 140 mg/dL. The [facility] [employer] [facility] [place] recommends a 135 mg/dL cutoff. Performed By: #### GLTGST ## ## [facility] CLIA [id number] [address] [place] [address] [place] CBC W AUTO DIFF BLD Collected: 03/13/2023 1:[address] atus: F Source: [facility] Order Comment: Specimen Type : BLOOD SPECIMEN Ordering Facility: [facility] Address: [place] [address] TYPE CODE TESTS RESULT OUT OF RANGE REFERENCE UNITS LAB 6690-2([facility]) WBC # Bld Auto 9.29 3.70-11.00 k/uL LAB 789-8([facility]) RBC # Bld Auto 3.93 3.90-5.20 m/ uL LAB 718-7([facility]) Hgb Bld-mCnc 12.0 11.5-15.5 g/dL LAB 4544-3([facility]) Hct VFr Bld Auto 35.3 Low 36.0-46.0 % LAB 787-2([facility]) MCV RBC Auto 89.8 80.0-100.0 fL LAB 785-6([facility]) MCH RBC Qn Auto 30.5 26.0-34.0 p g LAB 786-4([facility]) MCHC RBC Auto-mCnc 34.0 30.5-36.0 g/dL LAB 82460-0([facility]) RDW RBC-Rto 12.9 11.5-15.0 % LAB 777-3([facility]) Platelet # Bld Auto 259 150-400 k/uL LAB 64325-4([facility]) PMV Bld Auto 9.1 9.0-12.7 fL LAB 770-8([facility]) Neutrophils/leuk NFr Bld Auto 66.5 % LAB 751-8([facility]) Neutrophils # Bld Auto 6.17 1.45-7.50 k/uL LAB 736-9([facility]) Lymphocytes/leuk NFr Bld Auto 18.3 % LAB 731-0([facility]) Lymphocytes # Bld Auto 1.70 1.00-4.00 k/uL LAB 5905-5([facility]) Monocytes/leuk NFr Bld Auto 8.8 % LAB 742-7(INC) Monocytes # Bld Auto 0.82 <0.87 k/uL LAB 713-8(INC) Eosinophil/leuk NFr Bld Auto 5.7 % LAB 711-2([facility]) Eosinophil # Bld Auto 0.53 High <0.46 k/uL LAB 706-2([facility]) Basophils/leuk NFr Bld Auto 0.3 % LAB 704-7(LOINC) Basophils # Bld Auto 0.03 <0.11 k/uL LAB 85397-9(LOINC) Imm Granulocytes/virginie k NFr Bld Auto 0.4 % LAB 29049-0(LOINC) Imm Granulocytes # Bld Auto 0.04 <0.10 k/uL LAB 76549-3(LOINC) nRBC/100 WBC Bld-Rto 0.0 /100 WBC LAB 771-6(LOINC) nRBC # Bld Auto <0.01 <0.01 k/u L LAB 83588-5(LOINC) Differential method Bld Auto Performed By: #### 71228-5 # ### [facility] CLIA [id number] [address] [place] [address] OF [place] REAGIN+T PALLIDUM IGG+IGM SERPL-IMP Collected: 03/13/2023 1:40 PM Status: F Source: [facility] Order Comment: Specimen Type : BLOOD SPECIMEN Ordering Facility: [facility] Address: [address] [place] [address] TYPE CODE TESTS RESULT OUT OF RANGE REFERENCE UNITS LAB 47457-4(INC) T pallidum IgG+IgM Ser Ql IA Nonreactive Nonreactive LAB 44705-3([facility]) Reagin+T pallidum IgG+IgM SerPl-Imp Cannot exclude recent Treponemal infection if specimen collected within 7-10 days after appearance of suspect lesions or 2-3 weeks after an exposure. Clinical correlation is required. Performed By: #### 98808-6 # ### [facility] CLIA [id number] [address] [place] [address] OF [facility] PROGRESS Observed: 03/13/2023 1:31 PM Status: COMPLETED Source: [facility] HNO ID: [id number] Author: Maru Liz LPN Service: ? Author [...] severely ill: Yes Patient denies history of Guillain-Little Birch Syndrome (a severe paralytic illness): No Tdap Adacel injection was given without incident. See immunizations for details of immunizations administered today. VIS sheet provided: Yes Provider Joy Rosado CNM was present in office at time of injection. Maru GARCIA Observed: 03/13/2023 12:00 AM Status: COMPLETED Source: [facility] Telephone (OBGYWM) LIZETTE WOOD ([id number]) 1985 F Date Time Provider Department 03/13/23 [...] Observed: 01/16/2023 12:00 AM Status: COMPLETED Source: [facility] Telephone (OBPlayloreWM) LIZETTE WOOD ([id number]) 1985 F Date Time Provider Department 01/16/23 [...] significant other and patient is currently at [facility] ER. Omar Yost RN Allergies As of [...] Observed: 11/29/2022 12:00 AM Status: COMPLETED Source: [facility] Telephone (CAROLAGYWM) LIZETTE WOOD ([id number]) 1985 F Date Time Provider Department 11/29/22 TERENCE COLLAZO During your visit today, we recorded the following information about you: Terence Collazo APRN.CNM 11/29/2022 9:07 AM Signed Patient was here for NT US and did not look into TdohszaB65 pricing. Called in waiting room but never [...] with patient. She does not want the Jmjpbsd48. Thought she had the sequential screening drawn on Friday. Advised that the order had not been placed as we were waiting her decision. States that she told the lady at the front office representative that she wanted the sequential screen and [...] Date Reviewed: 11/27/2022 Reviewed by: Dwight Parker Social Work Instructor - Fully Assessed Reason for Visit: Patient [...] AB Collected: 9:36 AM Status: F Source: [facility] Order Comment: Specimen Type : BLOOD SPECIMEN Ordering Facility: [facility] Address: [address] [place] [address] [place] [address] TYPE CODE TESTS RESULT OUT OF RANGE REFERENCE UNITS LAB RUBGQL RUBELLA IGG AB, QUAL Positive Positive Result Comment: The result s uggests recent or past exposure to Rubella virus or history of Rubella vaccination. Positive result may also be seen due to presence of passively-transferred antibodies. Please correlate with patient's history. Performed By: #### RUBIGG ## ## [facility] CLIA [id number] [address] [facility] DESK [id number] [place] [address] [facility] CBC PNL BLD AUTO Collected: 3 9:36 AM Status: F Source: [facility] Order Comment: Specimen Type : BLOOD SPECIMEN Ordering Facility: [facility] Address: [address] [place] [address] TYPE CODE TESTS RESULT OUT OF RANGE [...] MCHC RBC Auto-mCnc 34.8 30.5-36.0 g/dL LAB 47348-0(LOINC) RDW RBC-Rto 13.1 11.5-15.0 % LAB 777-3(LOINC) Platelet # Bld Auto 300 150-400 k/uL LAB 75250-4(LOINC) PMV Bld Auto 9.0 9.0-12.7 fL LAB 771-6(LOINC) nRBC # Bld Auto <0.01 <0.01 k/uL Performed By: #### 36522-9 # ### [facility] CLIA [id number] [address] [place] [address] [place] TYPE + SCREEN Collected: 11/27/2022 9:36 AM Status: F Source: [facility] Order Comment: Specimen Type : BLOOD SPECIMEN Ordering Facility: [facility] Address: [address] [place], [place] [address] TYPE CODE TESTS RESULT OUT OF RANGE REFERENCE UNITS LAB %ABO ABO O LAB %RH RH Positive LAB % ANTIBODY SCREEN Negative LAB %EXX TYPE AND SCREEN EXPIRATION 11/30/2022 23:59 LAB PREVAB HISTORICAL AB SCR STATUS NEGATIVE Performed By: #### TSPN #### CC [facility] CLIA [id number] [address] [place] [address] [place] HBV SURFACE AG SER QL Collected: 2022 9:36 AM Status: F Source: [facility] Order Comment: Specimen Type : BLOOD SPECIMEN Ordering Facility: [facility] Address: [address] [place] [address] TYPE CODE TESTS RESULT OUT OF RANGE REFERENCE UNITS LAB 5195-3([facility]) HBV surface Ag Ser Ql Negative Negative Performed By: #### 5195-3, 3 1201-7, 13008-2 #### [facility] CLIA [id number] [address] [place] [address] [place] HIV1+2 AB SERPL QL IA Collected: 2022 9:36 AM Status: F Source: [facility] Order Comment: Specimen Type : BLOOD SPECIMEN Ordering Facility: [facility] Address: [address] [place], [place] [address] TYPE CODE TESTS RESULT OUT OF RANGE REFERENCE UNITS LAB 42174-1(LOINC) HIV 1+2 Ab+HIV1 p24 Ag SerPl Ql IA Nonreactive Nonreactive LAB 27345-1(LOINC) HIV 1 AND 2 Ab SerPl IA.rapid [...] diagnoses. Performed By: #### 5195-3, 3 1201-7, 67458-5 #### [facility] CLIA [id number] [facility] [address] OF [place] REAGIN+T PALLIDUM IGG+IGM SERPL-IMP Collected: 11/27/2022 9:36 AM Status: F Source: [facility] REPOS[facility] Order Comment: Specimen Type : BLOOD SPECIMEN Ordering Facility: [facility] Address: [address] [place] [address] TYPE CODE TESTS RESULT OUT OF RANGE REFERENCE UNITS LAB 19071-5(LOINC) T pallidum IgG+IgM Ser Ql IA Nonreactive Nonreactive LAB SYPHIN SYPHILIS INTERPRETATION Cannot exclude recent Treponemal infection if specimen collected within 7-10 days after appearance of suspect lesions or 2-3 weeks after an exposure. Clinical correlation is required. Performed By: #### 5195-3, 3 1201-7, 71746-8 #### [facility] CLIA [id number] [address] [place] [address] HCV AB SER QL Collected: 9:36 AM Status: F Source: [facility] Order Comment: Specimen Type : BLOOD SPECIMEN Ordering Facility: [facility] Address: [address] [place] [address] TYPE CODE TESTS RESULT OUT OF RANGE REFERENCE UNITS LAB 07278-1(LOINC) HCV Ab Ser Ql Negative Negative Result Comment: The result s uggests no evidence of active infection with Hepatitis C virus. Should recent infection be suspected, repeat testing may be considered 4- 6 weeks after this draw. Performed By: #### 55920-6 # ### [facility] CLIA [id number] [address] [place] [address] [place] TSH SERPL-ACNC Collected: 9:36 AM Status: F Source: [facility] Order Comment: Specimen Type : BLOOD SPECIMEN Ordering Facility: [facility] Address: [address] [place], [place] [address] TYPE CODE TESTS RESULT OUT OF RANGE [...] Oliver, et al. 2017 Guidelines of the [place] Thyroid Association for the Diagnosis and Management of Thyroid Disease during and the . Thyroid, 2017:27:3:315-389. Performed By: #### 3016-3 ## ## [facility] CLIA [id number] [address] [place] [address] [place] BACTERIA UR CULT Observed: 11/13/2022 9:35 AM Status: F Source: [facility] ORGANISM ID: 1 10,000 -<50,000 CFU/ml Normal urogenital alaina Performed By: #### 630-4 ### # [facility] CLIA [id number] [address] [place] [address] [place] C TRACH+GC DNA SPEC QL YOLANDA+PROBE Collected: 11/13/2022 9:35 AM Status: F Source: [facility] Order Comment: Specimen Type : SWAB Ordering Facility: [facility] Address: [address] [place] [address] TYPE CODE TESTS RESULT OUT OF RANGE REFERENCE UNITS LAB 98789-1(LOINC ) N gonorrhoea DNA Spec Ql YOLANDA+probe Negative for Neisseria gonorrhoeae by amplification Negative for Neisseria gonorrhoeae by amplification LAB 34910-1([facility] ) C trach DNA Spec Ql YOLANDA+probe Negative for Chlamydia trachomatis by amplification Negative for Chlamydia trachomatis by amplificaton Performed By: #### 20180-6 # ### [facility] CLIA [id number] [address] [place] [address] [place] PROGRESS Observed: 11/13/2022 8:45 AM Status: COMPLETED Source: [facility] HNO ID: [id number] Author: Terence Collazo APRN.CNM Service: ? Author Type: Counselling Psychologist Type: Progress Notes Filed: 11/13/2022 9:24 PM [...] Prior treatment for cervical dysplasia: LEEP [facility] History of STDs: HPV Tobacco use: Yes, stopped 2 weeks ago after positive test Caffeine use: Yes Drug use: No Alcohol use: No Multivitamin with Folic acid: Yes Alevism or heritage: No Would refuse blood transfusion [...] Your guide to a health and the Medical Services Assistant. OB Community care order placed. Discussed aneuploidy [...] Observed: 11/04/2022 11:58 AM Status: COMPLETED Source: [facility] HNO ID: [id number] Author: Lena Zamora RN Service: ? Author Type: ? Type: Progress Notes Filed: 11/04/2022 12:05 PM Note Text: # 1 - Date: 2009, Sex: None, Weight: None, GA: 10w0d, Delivery: MISSED AB, Apgar1: None, Apgar5: None, Living: None, Comments: DANPR # 2 - Date: 07/23/11, Sex: Female, [...] Observed: 11/04/2022 9:30 AM Status: COMPLETED Source: [facility] Nurse Visit (OBGYWM) LIZETTE MITCHELL ([id number]) 1985 F Date Time Provider Department 11/04/22 9:30 AM NURSE PNOB [facility] WSTR OBGYWM During your visit today, we [...] Lena Zamora RN 11/04/2022 12:05 PM Signed [facility] VISIT This Team Access Model visit is a phone encounter. It required patient-provider interaction for the medical decision making as documented below. Father of the baby is involved. He is not the father of her other child. Patient recently moved back to [place] from [place]. She is 37 years of age. Advanced maternal age discussed. Noninvasive and invasive testing options discussed. Patient considering nuchal ultrasound and maternity 21 testing. Contact information for integrated genetics given to patient to check on insurance coverage. Patient states she had a LEEP done in [place] in 2021. I have asked patient to [...] stress. States she has not seen a wedding makeup artist since since 2010. Patient quit smoking 2 [...] for Encounter Date Provider Department Center 11/04/2022 [id number] PNOB [facility] KEYONA Terry Encounter Status:Closed by LENA ZAMORA RN on 11/04/22 ALLERGIES DATE TYPE / CODE NAME / CODE REACTION SEVERITY SOURCE 11/04/2022 Drug Class/348259730(SNOM ED CT) PENICILLINS HIVES [facility] 11/04/2022 DRUG INGREDI/643371524(SN OMED CT) SOAP RASH [facility] 11/04/2022 DRUG INGREDI/761677080(SN OMED CT) WOOL [facility] ENCOUNTERS ADMIT/DISCHARGE ACCOUNT NUMBER ADMITTING ENCOUNTER CLASS LOC ATION SOURCE 04/18/2023 [id number] Ambulatory [facility] 03/26/2023/ 3 [id number] Ambulatory [facility] HospitalBuild ing:OB [facility] 03/18/2023/ 3 [id number] Ambulatory [facility] 03/13/2023/ 3 [id number] Ambulatory [facility] 03/13/2023/ 3 [id number] Ambulatory [facility] 02/19/2023/ 3 [id number] Ambulatory [facility] HospitalBuild ing:OB [facility] 01/22/2023/ 3 [id number] Ambulatory [facility] 01/22/2023/ 3 [id number] Ambulatory [facility] 12/25/2022/ 3 [id number] Ambulatory [facility] 12/25/2022/06/14 3 [id number] Ambulatory [facility] HospitalBuild ing:WMOB [facility] 11/27/2022/ 3 [id number] Ambulatory [facility] HospitalBuild ing:WOL2 [facility] 11/27/2022/ 3 [id number] Ambulatory [facility] HospitalBuild ing:[facility] 11/27/2022/ 3 [id number] Ambulatory [facility] HospitalBuild ing:[facility] 11/25/2022 [id number] Ambulatory [facility] Hospital[facility] ing:[facility] 11/13/2022/ 3 [id number] Ambulatory [facility] HospitalBuild ing:[facility] 11/04/2022/ 3 [id number] Ambulatory [facility] Hospital[facility] ing:[facility] PAYERS ENCOUNTER GUARANTOR PAYER SUBSCRIBER SOURCE 04/18/2023 Primary Insurance:BLUE CARD PPO OOSPolicy Number: [id number] nava Date:9816-88-82Qhfk Name:Harjeet BRANDT: [id number] [address] 03/26/2023 Primary Insurance:BLUE CARD PPO OOSPolicy Number: [id number] nava Date:0868-42-47Bhjv Name:Harjeet BRANDT: [id number] [place], [place] [address] [place] [address] 03/18/2023 Primary Insurance:BLUE CARD PPO OOSPolicy Number: [id number] nava Date:7808-27-46Tfqh Name:Harjeet BRANDT: [id number] [place], [place] [address] [place] [address] 03/13/2023 Primary Insurance:BLUE CARD PPO OOSPolicy Number: [id number] nava Date:2401-71-87Qnpc Name:Harjeet BRANDT: [id number] [place] [address] [facility] 03/13/2023 Primary Insurance:BLUE CARD PPO OOSPolicy Number: [id number] nava Date:5800-54-53Yvsb Name:Harjeet OBANDOOB: [id number] [place] [address] [facility] 02/19/2023 Primary Insurance:BLUE CARD PPO OOSPolicy Number: [id number] nava Date:3504-05-11Jqhy Name:Harjeet OBANDOOB: [id number] [place], [place] [address] [place] [address] 01/22/2023 Primary Insurance:BLUE CARD PPO OOSPolicy Number: [id number] nava Date:0685-13-37Ejgg Name:Harjeet OBANDOOB: [id number] [place], [place] [address] [place] [address] 01/22/2023 Primary Insurance:BLUE CARD PPO OOSPolicy Number: [id number] nava Date:3928-56-61Umkc Name:Harjeet OBANDOOB: [id number] [place], [place] [address] [place] [address] 12/25/2022 Primary Insurance:BLUE CARD PPO OOSPolicy Number: [id number] nava Date:3141-18-77Mpmo Name:Harjeet OBANDOOB: [id number] [place], [place] [address] [place] [address] 12/25/2022 Primary Insurance:BLUE CARD PPO OOSPolicy Number: [id number] nava Date:2054-92-10Kujg Name:Harjeet OBANDOOB: [id number] [place], [place] [address] [place] [address] 11/27/2022 Primary Insurance:BLUE CARD PPO OOSPolicy Number: [id number] nava Date:[id number] Name:Harjeet OBANDOCAROLA: [id number] [place] [address] [facility] 11/27/2022 Primary Insurance:BLUE CARD PPO OOSPolicy Number: [id number] nava Date:[id number] Name:Harjeet OBANDOCAROLA: [id number] [place] [address] [facility] 11/27/2022 Primary Insurance:BLUE CARD PPO OOSPolicy Number: [id number] nava Date:1968-85-94Elkv Name:Harjeet OBANDOCAROLA: [id number] [place], [place] [address] [place] [address] 11/25/2022 Primary Insurance:BLUE CARD PPO OOSPolicy Number: [id number] nava Date:3982-15-81Kdlo Name:Harjeet YODER: [id number] [place], [place] [address] [place] [address] 11/13/2022 Primary Insurance:BLUE CARD PPO OOSPolicy Number: [id number] nava Date:[id number] Name:Harjeet YODER: [id number] [place] [address] [facility] 11/04/2022 Primary Insurance:BLUE CARD PPO OOSPolicy Number: [id number] nava Date:[id number] Name:Harjeet YODER: [id number] [place], [place] [address] [place] [address]
[2023-04-18] MEDS: Acetaminophen 500 MG Tablet 1000 MG PO (19:09)
[2023-04-18] MEDS: guaiFENesin 10 ML UDC (200MG/10ML) PO (19:09)
[2023-04-18 21:00] VITALS: BP 97/53; PULSE 88; RESP 16; TEMP 36.8; O2SAT 97
[2023-04-18 21:29] LABS: Absolute Lymphocyte Count 1.56 X10^3/uL (0.83-4.51); Absolute Neutrophil Count 9.8 X10^3/uL (2.0-7.7); Basophil# 0.03 X10^3/uL; Basophil% 0.2 % (0-1); Eosinophil# 0.21 X10^3/uL; Eosinophils% 1.6 % (0-5); Hematocrit 31.6 % (37-47); Hemoglobin 10.6 g/dL (12.0-15.0); Lymphocyte # 1.56 X10^3/ul (0.83-4.51); Lymphocyte % 12.1 % (19-41); Mean Corp Hgb Conc 33.5 g/dL (32-36); Mean Corpuscular Hgb 30.6 pg (27.0-32.0); Mean Corpuscular Volume 91.3 fL (81-99); Mean Platelet Vol. 9.3 fl (6.2-12.0); Monocyte# 1.19 X10^3/uL; Monocyte% 9.2 % (0-10); NRBC Flagged by Analyzer 0 % (0-5); Neutrophil # 9.84 X10^3/uL (2.7-7.7); Neutrophil % 76.4 % (47-70); Platelet Count 241 K/mm3 (150-450); RBC Distribution Width SD 42.5 fl (35.1-43.9); Red Blood Count 3.46 M/mm3 (4.2-5.4); White Blood Count 12.9 K/mm3 (4.4-11.0)
--- NOTE | 2023-04-18 23:01 | NURSING ---
Addendum entered by Tammy Castillo 04/18/23 23:07: pulse ox was placed on pt during NST, maternal HR 70s-80s Original Note: This RN up to MS3 for NST. pt placed in semifowlers, left tilt position. placed on monitor at 2207, monitored for 30 mins. Reactive NST obtained. FHR baseline 130 + accelerations, no decelerations. + movement. Audible movement noted as RN at bedside and mother confirmed movement. abd palpates soft and nontender. 2 contractions traced during the 30 mins pt was on the monitor. 60-80 seconds in length. palpated mild. pt denies feeling contractions. pt denies ROM or vaginal bleeding pts RN Divine notified of reactive NST.
[2023-04-19 01:35] VITALS: BP 120/74; PULSE 89; RESP 16; TEMP 36.8; O2SAT 99
[2023-04-19] MEDS: Lactated Ringers 1,000 ML 100 ML IV ×3 (01:51→22:25)
[2023-04-19] MEDS: Acetaminophen 500 MG Tablet 1000 MG PO (03:33)
[2023-04-19 07:30] VITALS: BP 108/65; PULSE 70; RESP 16; TEMP 36.7; O2SAT 98
--- NOTE | 2023-04-19 09:59 | PCM.PN.OB ---
Subjective Subjective Pt doing well. She still feels subjective fevers and chills. Her flank pain and back pain have significantly improved but are still slightly present. Dysuria has improved. She denies abdominal pain, contractions, bleeding, leaking of fluid. Good movement. Her nausea and vomiting has improved. She is tolerating p.o. Overall she feels better. Objective Data Objective Data Vital Signs: Vital Signs Temp Pulse Resp BP Pulse Ox O2 Del Method 98.0 F 70 16 108/65 98 Room Air 04/19/23 07:30 04/19/23 07:30 04/19/23 07:30 04/19/23 07:30 04/19/23 07:30 04/19/23 07:30 Oxygen Delivery Method Room Air Weight: 180 lb 1.883 oz Body Mass Index (BMI) 35.2 Intake & Output: Intake and Output for Last 24 Hours 04/17/23 04/18/23 04/19/23 23:59 23:59 23:59 Intake Total 310 / 1110 1470 / 1470 Output Total 350 / 1000 650 / 650 Balance -40 / 110 820 / 820 Lab / Micro Data 04/18/23 21:23 Labs: Laboratory Results - last 24 hr 04/18/23 21:23: WBC 12.9 H, RBC 3.46 L, Hgb 10.6 L, Hct 31.6 L, MCV 91.3, MCH 30.6, MCHC 33.5, RDW Std Deviation 42.5, RDW Coeff of James 13.0, Plt Count 241, MPV 9.3, Immature Gran % (Auto) 0.500, Neut % (Auto) 76.4 H, Lymph % (Auto) 12.1 L, Pine % (Auto) 9.2, Eos % (Auto) 1.6, Baso % (Auto) 0.2, Absolute Neuts (auto) 9.8 H, Absolute Lymphs (auto) 1.56, Nucleated RBC % 0 Physical Exam Const alert and no apparent distress General Appearance: comfortable GI soft to palpation, non-tender and non-distended Assessment & Plan (1) 32 weeks gestation of : (2) Pyelonephritis affecting : PLAN: Patient feeling improved since admission. Had a temperature of 99 last night. We will give an additional dose of IV Rocephin tonight and anticipate transitioning to oral antibiotics tomorrow with discharge to home. Urine culture that was completed in the office is still in process. (3) Vaginal discharge: PLAN: Positive for BV in the office. We will start Flagyl.
[2023-04-19] MEDS: Ceftriaxone 1 GM/50 ML BAG IV (10:31)
[2023-04-19 11:00] VITALS: BP 114/60; PULSE 76; RESP 16; TEMP 36.9; O2SAT 98
[2023-04-19 14:00] VITALS: BP 117/67; PULSE 82; RESP 16; TEMP 37.1; O2SAT 98
--- NOTE | 2023-04-19 15:26 | NURSING ---
04/19/23 @ 6914-0392: External monitor: FHR 140, moderate variability, 15 x 15 accel's, absent decel's, External monitor: No CTX, abd palp soft. Cat 1 tracing. Reactive NST. reviewed NST and okay to continue NST's q shift. Pt denies complaints and reports good FM.
[2023-04-19 17:08] VITALS: BP 120/66; PULSE 80; RESP 16; TEMP 37; O2SAT 99
--- NOTE | 2023-04-19 17:55 | CASEMGMT ---
VEE WORTHINGTON BESSEMER CONVERTER BLOWER CM to room to meet with patient for initial transition planning/care coordination assessment. VEE WORTHINGTON introduced self and role at [facility].? Pt voices understanding and consents to assessment at this time.? Pt resting in bed in no distress at this time.? Pt is A/O at this time and answers all questions appropriately.?? Care providers, pharmacy, and demographics verified/updated at this time. PCP: No PCP. Provided w/list of local physicians. Specialists: [facility]US RECRUITING INTERN [facility] Insurance: [employer] Prescription Benefit:?Yes Living Will/HPOA:?Pt does not currently have LW/HCPOA. Pt made aware that she can contact SW as an out-pt and make appt in the future if she decides she would like to talk with someone about this or would like to utilize [facility] social work for advanced directive completion. LNOK: Mother is living but she is not listed on pt's contact list. Jose Jacobsen Living Arrangements: Lives w/Jose and 11-yr-old daughter. Independent. Transportation: Pt states drives self and states no transportation concerns at this time.? Jose also drives. DME: ? Denies using any DME and denies needs.? HHC/SNF: No hx of either. No needs identified. Pt wishes to return home and states has no concerns with going home at time of discharge.? PLAN: ?Home Maksim ESCOTO RN, CM
[2023-04-19 21:13] VITALS: BP 127/80; PULSE 82; RESP 18; TEMP 36.4; O2SAT 98
--- NOTE | 2023-04-19 22:36 | NURSING ---
Rn up to place pt on the monitor for an NST. Pt reports feeling good and feeling baby movement. Pt was on the monitor from 7337-3846. Rn can hear movement when placed on the monitor. Pt denies feeling contractions and none were traced or palpated. Baseline FHR is 135, with accels and moderate variability. One variable noted but was followed by 20 minutes of Cat 1.
[2023-04-19] MEDS: metroNIDAZOLE 500 MG Tablet PO (22:38)
[2023-04-20 04:30] VITALS: BP 126/84; PULSE 74; RESP 18; TEMP 36.6; O2SAT 97
[2023-04-20] MEDS: Lactated Ringers 1,000 ML 100 ML IV (06:11)
[2023-04-20 08:40] VITALS: BP 126/79; PULSE 83; RESP 14; TEMP 36.6; O2SAT 96
[2023-04-20] MEDS: Ceftriaxone 1 GM/50 ML BAG IV (09:43)
[2023-04-20] MEDS: metroNIDAZOLE 500 MG Tablet PO (09:48)
--- NOTE | 2023-04-20 11:49 | PCM.PN.OB ---
Subjective Subjective Patient feels significantly improved this morning. Her back and flank pain have resolved. She has no more nausea or vomiting. She is tolerating a diet well. She denies fevers or chills. She denies contractions, vaginal bleeding, leaking of fluid. Good movement. She feels ready to go home today. Objective Data Objective Data Vital Signs: Vital Signs Temp Pulse Resp BP Pulse Ox O2 Del Method 97.8 F 83 14 126/79 H 96 Room Air 04/20/23 08:40 04/20/23 08:40 04/20/23 08:40 04/20/23 08:40 04/20/23 08:40 04/20/23 08:40 Oxygen Delivery Method Room Air Weight: 180 lb 1.883 oz Body Mass Index (BMI) 35.2 Intake & Output: Intake and Output for Last 24 Hours 04/18/23 04/19/23 04/20/23 23:59 23:59 23:59 Intake Total 310 / 1110 4570 / 4570 1486.67 / 1486.67 Output Total 350 / 1000 650 / 650 200 / 200 Balance -40 / 110 3920 / 3920 1286.67 / 1286.67 Lab / Micro Data 04/18/23 21:23 Physical Exam Const alert and no apparent distress General Appearance: comfortable Resp normal respiratory effort GI soft to palpation Assessment & Plan (1) 32 weeks gestation of : (2) Pyelonephritis affecting : PLAN: Patient has remained afebrile and significant clinical improvement noted. We will transition to oral antibiotics for a total of 14 days of treatment. Discussed with patient she will then need to be on daily antibiotics for the remainder of the . Urine culture from the office was contaminated. She has follow-up in the office this week. (3) Vaginal discharge: PLAN: Continue Flagyl for BV.
--- NOTE | 2023-04-20 12:00 | DCINST_ITS ---
Discharge Instructions Diet Discharge Diet: No restrictions Activity Discharge Activity: May Drive, May Shower and - (Do not use alcohol while taking the Flagyl and for 72 hours after) May resume sexual activity in: 1 week (No intercourse while taking the Flagyl) Dressing / Incision Call your doctor if you observe: Fever of 101 or Higher, Coldness, Increased Pain, Inability to urinate, Shortness of breath, Dizziness, Swelling in the ankles, Chest pain, Calf discomfort and Uncontrolled pain Follow Up Care When: Keep your scheduled follow up this week Test Results: Test results from this visit will be discussed in further detail at your follow- up appointment, if applicable. Discharge Plan Admission Admit Date/Time: 04/18/23 14:46 Primary Reason for Your Visit: pyelonephritis Attending Provider: Jenifer Arevalo Primary Care Provider: Care PhysicianAmairani Primary Instructions Patient Instructions: ED Pyelonephritis, Female (Adult) Discharge Orders/Prescriptions Prescriptions: New cephalexin 500 mg capsule 500 mg PO Q6H 12 Days Qty: 48 0RF metronidazole 500 mg tablet 500 mg PO BID 6 Days Qty: 12 0RF Continued aspirin 81 mg tablet,chewable 1 tab PO DAILY [id number]-lvv-voc-jrji oil 400 mcg-35 mg -25 mg-5 mg tablet,chewable 2 tab PO DAILY ondansetron 4 mg tablet,disintegrating 4 mg PO Q8H PRN PRN (Reason: Nausea) Qty: 10 0RF Referrals / Follow Up: Care Physician,No Primary [Primary Care Provider] - Disposition Disposition (needs filled in before D/C Order can be placed): Home, Self Care
[2023-04-20 12:17] VITALS: BP 112/72; PULSE 78; RESP 16; O2SAT 98
--- OUTSIDE RECORDS SUMMARY | 2023-08-25 18:28 | XMS RPT_ITS | CCD ---
Author Name Unknown Address [address] [place] [address] Organization [facility] Care Team Providers Care Artificial Pearl Maker Name Role Phone Unavailable Primary Care Provider UnavailAMY Brownlee Attending Unavailable COLLAZO, TERENCE Referring Unavailable SHANIQUA AERVALO Attending Unavailable PLOTTS, JOY Attending Unavailable COLLAZO, TERENCE Referring Unavailable NEHELENAT VENESSA, ELSA Attending Unavail able PLOTTS, JOY Attending Unavailable PLOTTS, JOY Referring Unavailable COLLAZO, TERENCE Referring Unavailable COLLAZO, TERENCE Attending Unavailable COLLAZO, TERENCE Attending Unavailable PLOTTS, JOY Attending Unavailable COLLAZO, TERENCE Referring Unavailable KEN, KARMON Attending Unavailable KEN, KARMON Attending Unavailable COLLAZO, TERENCE Referring Unavailable COLLAZO, TERENCE Attending Unavailable NEYTAVIAT CLIFFORD, ELSA Attending Unavail able PLOTTS, JOY Attending Unavailable PLOTTS, JOY Referring Unavailable PLOTTS, JOY Attending Unavailable COLLAZO, TERENCE Referring Unavailable Allergies Allergy Classification Reported Allergen(s) Allergy Type Date of Onset Reaction(s) Facility (15 sources) Penicillins; Translations: [PENICILLINS] Drug Allergy 11-04-2022 [facility] Work Phone: (15 sources) Soap; Translations: [SOAP] Drug Allergy 11-04-2022 [facility] Work Phone: (15 sources) Wool; Translations: [WOOL] Drug Allergy 11-04-2022 [facility] Work Phone: Medications Completed/Discontinued Medications Medication Drug Class(es) Dates Sig (Normalized) Sig (Original) aspirin 81 mg oral tablet (10 sources) Platelet Aggregation Inhibitor, Nonsteroidal Anti-inflammatory Drug aspirin 81 mg cap Take by mouth. 0 Active Problems Active Problems Problem Classification Problem Date Documented Date Episodic/Chronic Genitourinary symptoms and ill-defined conditions (1 source) Dysuria; Translations: [Dysuria] 04-18-2023 Episodic Other complications of (4 sources) Maternal obesity complicating , childbirth and the puerperium, antepartum; Translations: [Obesity complicating , second trimester] 01-22-2023 Chronic Other complications of (1 source) Obesity complicating , second trimester; Translations: [Other obesity due to excess calories affecting in second trimester] Onset: 03-13-2023 Chronic Other complications of (5 sources) Urinary tract infection in ; Translations: [Unspecified infection of urinary tract in , unspecified trimester] Onset: 04-18-2023 04-18-2023 Episodic Other female genital disorders (1 source) Vaginal discharge; Translations: [Other specified noninflammatory disorders of vagina] 04-18-2023 Episodic Other female genital disorders (1 source) Vaginal odor; Translations: [Other specified noninflammatory disorders of vagina] 04-18-2023 Episodic Other nutritional; endocrine; and metabolic disorders (1 source) Other obesity due to excess calories; Translations: [Other obesity due to excess calories affecting in second trimester] Onset: 03-13-2023 Chronic Other nutritional; endocrine; and metabolic disorders (1 source) H/O: thyroid disorder; Translations: [Personal history of other endocrine, nutritional and metabolic disease] Episodic Residual codes; unclassified (1 source) Gestation period, 9 weeks; Translations: [9 weeks gestation of ] Episodic Residual codes; unclassified (1 source) Gestation period, 15 weeks; Translations: [15 weeks gestation of ] Episodic Residual codes; unclassified (2 sources) Gestation period, 19 weeks; Translations: [19 weeks gestation of ] 01-22-2023 Episodic Residual codes; unclassified (1 source) Gestation period, 23 weeks; Translations: [23 weeks gestation of ] 02-19-2023 Episodic Residual codes; unclassified (1 source) Gestation period, 28 weeks; Translations: [28 weeks gestation of ] 03-26-2023 Episodic Residual codes; unclassified (3 sources) Gestation period, 32 weeks; Translations: [32 weeks gestation of ] 04-18-2023 Episodic Spondylosis; intervertebral disc disorders; other back problems (1 source) Renal angle tenderness; Translations: [Dorsalgia, unspecified] 04-18-2023 Episodic Urinary tract infections (5 sources) Pyelonephritis; Translations: [Tubulo-interstitial nephritis, not specified as acute or chronic] Onset: 04-20-2023 04-20-2023 Episodic Past or Other Problems Problem Classification Problem Date Documented Date Episodic/Chronic Diabetes mellitus without complication (8 sources) Increased glucose level; Translations: [Other abnormal glucose] Onset: 03-13-2023 03-18-2023 Episodic Other complications of (19 sources) Multigravida of advanced maternal age; Translations: [Supervision of elderly multigravida, unspecified trimester] Onset: 11-04-2022 Episodic Other complications of (14 sources) History of loop electrosurgical excision procedure; Translations: [Maternal care for other abnormalities of cervix, unspecified trimester] Onset: 11-04-2022 Episodic Other complications of (14 sources) High risk ; Translations: [Supervision of high risk , unspecified, unspecified trimester] Onset: 11-13-2022 Episodic Other complications of (2 sources) Supervision of elderly multigravida, second trimester; Translations: [Multigravida of advanced maternal age in second trimester] Onset: 12-25-2022 Episodic Other complications of (1 source) Supervision of high risk , unspecified, second trimester; Translations: [High-risk in second trimester] Onset: 12-25-2022 Episodic Other complications of (1 source) Maternal care for other abnormalities of cervix, unspecified trimester; Translations: [History of cervical LEEP biopsy affecting care of mother, antepartum] Onset: 11-04-2022 Episodic Other complications of (1 source) Supervision of other high risk pregnancies, first trimester; Translations: [Supervision of other high risk pregnancies, first trimester] Onset: 11-13-2022 Episodic Other nutritional; endocrine; and metabolic disorders (1 source) Personal history of other endocrine, nutritional and metabolic disease; Translations: [History of thyroid disease] Onset: 11-27-2022 Episodic Other and delivery including normal (1 source) Encounter for supervision of normal , unspecified, first trimester; Translations: [ with uncertain dates in first trimester] Onset: 11-25-2022 Episodic Other screening for suspected conditions (not mental disorders or infectious disease) (3 sources) Patient encounter status; Translations: [Encounter for other specified screening] Onset: 11-27-2022 01-22-2023 Episodic Residual codes; unclassified (15 sources) History of palpitations; Translations: [Personal history of other specified conditions] Onset: 11-04-2022 Episodic Residual codes; unclassified (1 source) 23 weeks gestation of ; Translations: [23 weeks gestation of ] Onset: 03-13-2023 Episodic Residual codes; unclassified (1 source) 9 weeks gestation of ; Translations: [9 weeks gestation of ] Onset: 01-22-2023 Episodic Residual codes; unclassified (1 source) 15 weeks gestation of ; Translations: [15 weeks gestation of ] Onset: 12-25-2022 Episodic Residual codes; unclassified (1 source) Other specified postprocedural states; Translations: [History of cervical LEEP biopsy affecting care of mother, antepartum] Onset: 11-04-2022 Episodic Residual codes; unclassified (1 source) 11 weeks gestation of ; Translations: [11 weeks gestation of ] Onset: 11-27-2022 Episodic Screening and history of mental health and substance abuse codes (15 sources) Stopped smoking; Translations: [Personal history of nicotine dependence] Onset: 11-04-2022 Episodic Results Test Name Value Interpretation Reference Range Facil ity Vital Signs Date Time Vital Sign Value Performing Clinician Valentina self 04-23-2023 14:04-0400 Body weight 82.37 kg Joy Desai PARACHUTE MARKER.CNM Work Phone: [facility] 04-23-2023 14:04-0400 Diastolic blood pressure 70 mm[Hg] Joy Desai PARACHUTE MARKER.CNM Work Phone: [facility] 04-23-2023 14:04-0400 Systolic blood pressure 110 mm[Hg] Joy Desai PARACHUTE MARKER.CNM Work Phone: [facility] 04-18-2023 12:17-0400 Body weight 81.28 kg Shaniqua Arevalo MD Work Phone: [facility] 04-18-2023 12:17-0400 Diastolic blood pressure 74 mm[Hg] Shaniqua Arevalo MD Work Phone: [facility] 04-18-2023 12:17-0400 Systolic blood pressure 110 mm[Hg] Shaniqua Arevalo MD Work Phone: [facility] 03-26-2023 13:12-0400 Body weight 80.74 kg Joy Plotts PARACHUTE MARKER.CNM Work Phone: [facility] 03-26-2023 13:12-0400 Diastolic blood pressure 66 mm[Hg] Joy Plotts PARACHUTE MARKER.CNM Work Phone: [facility] 03-26-2023 13:12-0400 Systolic blood pressure 100 mm[Hg] Joy Plotts PARACHUTE MARKER.CNM Work Phone: [facility] 02-19-2023 15:06-0400 Body weight 80.92 kg Joy Plotts PARACHUTE MARKER.CNM Work Phone: [facility] 02-19-2023 15:06-0400 Diastolic blood pressure 70 mm[Hg] Joy Plotts PARACHUTE MARKER.CNM Work Phone: [facility] 02-19-2023 15:06-0400 Systolic blood pressure 110 mm[Hg] Joy Plotts PARACHUTE MARKER.CNM Work Phone: [facility] 01-22-2023 14:25-0400 Body weight 78.47 kg Elsa Clifford MD Work Phone: [facility] 01-22-2023 14:25-0400 Diastolic blood pressure 72 mm[Hg] Elsa Clifford MD Work Phone: [facility] 01-22-2023 14:25-0400 Systolic blood pressure 114 mm[Hg] Elsa Clifford MD Work Phone: [facility] 12-25-2022 12:56-0400 Body height 152.4 cm Amy Villatoro MD Work Phone: [facility] 12-25-2022 12:56-0400 Body weight 76.66 kg Amy Villatoro MD Work Phone: [facility] 11-13-2022 08:44-0400 Body height 152.4 cm Terence Collazo APRN.CNM Work Phone: [facility] 11-13-2022 08:44-0400 Body weight 73.48 kg Terence Collazo APRN.CNM Work Phone: [facility] 11-13-2022 08:44-0400 Diastolic blood pressure 64 mm[Hg] Terence Collazo APRN.CNM Work Phone: [facility] 11-13-2022 08:44-0400 Systolic blood pressure 96 mm[Hg] Terence Collazo APRN.CNM Work Phone: [facility] Encounters Encounter Date Encounter Type Care Provider Facility Start: 06-19-2023 End: 06-19-2023 ambulatory GARO ROGERS Facility:[facility] Start: 05-26-2023 ambulatory Garo Rodríguez Work Phone: OB/Gynecology Procedures Date Procedure Procedure Detail Performing Clinician Start: 04-23-2023 URINE OB DIP B/O Suzanne Desai PARACHUTE MARKER.CNM Work Phone: Start: 04-18-2023 BACTERIAL VAGINOSIS NAAT Shaniqua Arevalo MD Work Phone: Start: 04-18-2023 Iadna chlamydia trachomatis amplified probe tq Shaniqua Arevalo MD Work Phone: Start: 04-18-2023 Urnls dip stick/tabl et rgnt auto w/o microscopy Shaniqua Arevalo MD Work Phone: Start: 03-26-2023 URINE OB DIP B/O Suzanne Desai PARACHUTE MARKER.CNM Work Phone: Start: 02-19-2023 URINE OB DIP B/O Suzanne Desai PARACHUTE MARKER.CNM Work Phone: Start: 01-22-2023 URINE OB DIP B/O Elsa Clifford MD Work Phone: Start: 01-22-2023 Us preg uterus after 1st trimest 07/14 gestation Terence Collazo APRN.ASHLEYM Work Phone: Start: 12-25-2022 Us preg uterus after 1st trimest 07/14 gestation Terence Collazo APRN.CNM Work Phone: Start: 11-27-2022 Antibody screen AMY MEJIA Plan of Treatment Date Care Activity Detail Author Start: 03-13-2033 Urine microalbumin profile DTaP,Tdap,Td Vaccine (2 - Td or Tdap) [facility] Start: 03-22-2023 End: 05-22-2023 CBC W Auto Differential panel - Blood CBC + DIFF Lab Routine 23 weeks gestation of Multigravida of advanced maternal age in second trimester Other obesity due to excess calories affecting in second trimester Expected: 03/22/2023 (Approximate), Expires: 05/22/2023 [facility] Work Phone: Immunizations Immunization Date Immunization Notes Care Provider Mak guidry 03-13-2023 tetanus toxoid, redu eboni diphtheria toxoid, and acellular pertussis vaccine, adsorbed Joy Adinluis STARK.ASHLEY Work Phone: [facility] Work Phone: Payers Date Payer Category Payer Unknown DEE DEE BLUE CARD PPO OOS [id number] 2022-Present [phone] [address] [place] [address] PPO [id number] 2022 Unknown [id number] Social History Date Type Detail Facility Start: 11-04-2022 Tobacco smoking stat us LAIS Ex-smoker [facility] Work Phone: End: 10-21-2022 History of tobacco use Current smoker [facility] Work Phone: End: 10-21-2022 History of tobacco use Cigarette Smoker [facility] Work Phone: Start: 11-04-2022 Tobacco use and exposure Smokeless tobacco non-user [facility] Work Phone: Start: 11-04-2022 End: 05-16-2023 Alcohol intake Ex-drinker (finding) [facility] Start: 11-04-2022 Education 16 [facility] Start: 11-04-2022 Alcohol Comment rarely Latisha [facility] Start: 09-20-2022 [facility] Start: 1985 Sex Assigned At Not on file C [facility] Start: 11-15-2022 End: 11-27-2022 History of Social function [facility] Start: 11-15-2022 End: 11-27-2022 Tobacco use panel [facility] National Score (1-10 0), lower number is lower risk 65 [facility] Goals Date Patient Goal Desired Activity /State Personal health goal Clinical Notes 11-04-2022 to 06-19-2023 Telephone Encounter - Maru Liz LPN - 05/29/2023 8:40 AM ESTTelephone Encounter - Maru Liz LPN - 05/27/2023 2:56 PM Dianne Young RN - 05/16/2023 11:25 AM EDTPatient Instructions Note Date & Type Note Facility 06-19-2023 Note HNO ID: [id number] Author: Waleska Swanson APRN.DENTIST/OWNER Service: ? Author Type: Nurse Practitioner Type: Progress Notes Filed: 06/19/2023 10:55 AM Note Text: Toby Maker offered: Patient declines. VISIT Lizette Wood is a 38 year old year old here for visit. Delivery Summary: c/s 05/08/2023 ROS/ Recovery: Feeding: Breast feeding problems: None Menses since delivery: none Menstrual pattern prior to : Regular periods [employer] since delivery: Not resumed Depression: denies symptoms of depression. OB Depression and Anxiety Screening- This Encounter (since 06/18/2023) Over the past 2 weeks have you felt down, depressed, or hopeless? Negative Over the past two weeks, have you felt little interest or pleasure in doing things?? Negative Feeling nervous, anxious or on edge 0-Not at all Not being able to stop or control worrying 0-Not al all Anxiety Pre-Screening Total (If >/= 3 additional questions will be reviewed) 0 Emotional support: Yes Bowel symptoms: Negative for abdominal discomfort, blood in stools or black stools and change in bowel habits Abdomen: She reports no incisional redness, tenderness, erythema Bladder symptoms: No dysuria, gross hematuria, urinary frequency, urinary urgency, or incontinence Other issues: None Last Pap: none HPV: N/A PAST MEDICAL HISTORY Diagnosis Date Abnormal glandular Papanicolaou smear of cervix Heart palpitations age 20 diagnosed. negative cardiology work-up PAST SURGICAL HISTORY Procedure Laterality Date ARTHROSCOPY KNEE DIAGNOSTIC W/WO SYNOVIAL BX SPX Bilateral x2 CERVIX UTERI CONIZA LP ELCTRO EXCI 2021 DELIVERY ONLY 05/08/2023 [facility] DANDC, DIAG AND/OR THERAPEUTIC 2009 FAMILY HISTORY Problem Relation Age of Onset Cancer Mother Stroke Mother Aneurysm Father Heart Father Drug abuse Father No Known Problems Brother Lung Cancer Maternal Grandmother Hypertension Maternal Grandmother Diabetes Maternal Grandfather Kidney failure Maternal Grandfather Heart Attack Maternal Grandfather other (varicose veins) Paternal Grandmother Diabetes Paternal Grandfather Heart Attack Paternal Grandfather No Known Problems Daughter Social History Tobacco Use Smoking status: Former Years: 5 Types: Cigarettes Quit date: 10/21/2022 Years since quittin.6 Smokeless tobacco: Never Vaping Use Vaping Use: Never used Substance Use Topics Alcohol use: Not Currently Comment: rarely Drug use: Never PHYSICAL EXAMINATION: BP 102/60 Wt 168 lb 3.2 oz (76.3kg) LMP 09/06/2022 GENERAL: pleasant, female in no apparent distress HEENT: Normocephalic, atraumatic, mucus membranes moist, and no lesions NECK: Supple, full range of motion, no adenopathy, and thyroid normal DERMATOLOGY: Normal, without lesions, non-icteric, and non-hirsute BREAST: soft, non-tender, symmetric, no dominant mass, normal nipple-areolar complex, no lymphadenopathy, and no nipple discharge CHEST: Normal inspiratory effort ABDOMEN: soft, non-tender, and no masses. INCISION: No incisional redness, swelling, or drainage PELVIC: external genitalia normal, normal Bartholin's glands, urethra, Noonday's glands, no vulvar lesions, no cervical lesions, good vaginal support, physiologic discharge present, normal appearing perineal body and perianal region BIMANUAL: uterus normal size, shape and consistency, no adnexal masses, and non-tender NEURO: alert and oriented x3,exam grossly non-focal EXTREMITIES: normal ASSESSMENT AND PLAN: 38 year old status post CS with normal course. Contraception plan: Oral contraceptives - progesterone only Follow up: Progesterone only OCP - patient will call when no longer Denies bleeding, pain, breast, bowel, or bladder concerns. Denies mental health concerns. Reports getting some sleep. To resume intercourse when physically, mentally, and emotionally ready. Pap with HPV done today. RTC in 6 months for annual exams or sooner as needed. Waleska Swanson APRN.DENTIST/OWNER [facility] 05-29-2023 Miscellaneous Notes Formattin g of this note might be different from the original. FMLA completed and faxed to employer, scanned into EMR and filed in nurses station. Maru Liz LPN Pt responded to [employer] message with dates of her leave. Forms completed and placed on providers desk. Maru Liz LPN [employer] message to pt requesting date of her leave. Will await further response from pt. Maru Liz LPN documented in this encounter [facility] 05-16-2023 Note HNO ID: [id number] Author: Dianne Yost RN Service: ? Author Type: ? Type: Progress Notes Filed: 05/16/2023 11:32 AM Note Text: Patient delivered via by Dr. Rogers on 05/08/23 at [facility]. See OB history. Dianne Yost RN [facility] 05-16-2023 History of Presen t illness Narrative Patient delivered via by Dr. Rogers on 05/08/23 at [facility]. See OB history. Dianne Yost RN documented in this encounter [facility] 05-15-2023 Note HNO ID: [id number] Author: Garo Rogers MD Service: ? Author Type: Physician Type: Progress Notes Filed: 05/15/2023 3:08 PM Note Text: EARLY VISIT Obstetric History T1 L2 SAB2 IAB0 Ectopic0 Multiple0 Live Births2 Name of Baby 1: Not recorded Date: 2007 [place]: 10w0d Delivery: MISSED AB Apgar1: Not recorded Apgar5: Not recorded Living: Not recorded Name of Baby 2: Teresita Date: 07/23/11 [place]: 38w0d Delivery: Vaginal, Spontaneous Apgar1: Not recorded Apgar5: Not recorded Living: Living Name of Baby 3: Not recorded Date: 2020 [place]: 8w0d Delivery: Not recorded Apgar1: Not recorded Apgar5: Not recorded Living: Not recorded Name of Baby 4: Tidus Date: 05/08/23 [place]: 34w6d Delivery: , Low Transverse Apgar1: Not recorded Apgar5: Not recorded Living: Living Lizette Wood is a 37 year old here for 1 week visit. Delivery Summary: ROS: General: Denies any fever or chills Hypertension Screening: Headache? No. Visual Changes? No Epigastric Pain? No Increased Swelling? No Taking any BP medications at home? No If applicable, monitoring BP at home? (If Yes, include results) No Mood: normal Depression: denies symptoms of depression. OB Depression and Anxiety Screening- This Encounter (since 05/14/2023) Over the past 2 weeks have you felt down, depressed, or hopeless? Negative Over the past two weeks, have you felt little interest or pleasure in doing things?? Negative Feeling nervous, anxious or on edge 0-Not at all Not being able to stop or control worrying 0-Not al all Anxiety Pre-Screening Total (If >/= 3 additional questions will be reviewed) 0 Feeding: problems: Engorgement; doing well overall Bladder: No dysuria, gross hematuria, urinary frequency, urinary urgency, or incontinence Bowel symptoms: Negative for abdominal discomfort, blood in stools or black stools and change in bowel habits Abdomen: bandage is on Bleeding: light flow Bottom and Perineum: No issues PHYSICAL EXAMINATION: BP 116/62 Wt 173 lb 12.8 oz (78.8 kg) LMP 09/06/2022 (Exact Date) Yes BMI 33.94 kg/m? General: pleasant,female in no apparent distress, AANDO x 3. Skin warm and intact. Breast: Deferred Abdomen: soft, non-tender, and no masses /Incision: No incisional redness, swelling, or drainage Pelvic: Deferred Bimanual: Deferred ASSESSMENT AND PLAN: 37 year old status post CS with normal course. Contraception plan: micronor - patient will start at 4 weeks PP . Reinforced 6-week pelvic rest. Encouraged condom usage should patient deviate. Education: resources provided - see MA/RN note Follow up: Return to Clinic for 6 week visit and as needed Garo Rogers MD [facility] 05-08-2023 Miscellaneous Notes Formattin g of this note might be different from the original. 34w6d Patient called with c/o pelvic pressure, possible contractions, and light pink spotting after using the bathroom. Advised to go to L&D for evaluation as the office is closing. Caitlyn Conn RN documented in this encounter [facility] 04-23-2023 Miscellaneous Notes Formattin g of this note might be different from the original. Lizette Wood is a 37 year old female who presents at 32w5d for a routine visit. Just completed growth US. EFW 37%, YINA 21. Admitted to [facility] on Friday - Friday for severe kidney infection. Stated feeling so much better. Still taking oral antibiotics and Flagyl for bacterial vaginosis. Positive movement. Denies headache, visual changes, chest pain, shortness of breath, vaginal bleeding, leakage of fluid, or dysuria. Feeling well, no complaints. Size appropriate for dates. 31 lbs TWG. PTL precautions reviewed. RTC in 2 weeks or sooner If needed. Joy Desai APRN.CNM documented in this encounter [facility] 04-23-2023 Instructions Nia Patel MA - 04/23/2023 1:59 PM EDT SEQUENTIAL SCREENINGS The [facility] offers sequential screenings for women who are interested in screenings for chromosomal abnormalities and certain defects during a . The sequential screen combines ultrasound and blood tests to determine the risk of chromosomal abnormalities, including Down's Syndrome (Trisomy 21) and Trisomy 18, as well as open neural tube defects including spina bifida. Ultrasound examination is performed between 11 weeks and 13 weeks gestational age. Blood tests are drawn after the ultrasound and again later in the between 15 and 21 weeks gestational age. Please let your physician know if you are interested in this testing. It will require an appointment with our photonics engineering technician. This is not an ultrasound performed by a physician in our office during a routine visit. SIGNS AND SYMPTOMS OF LABOR 1. Contractions every 10 minutes or more often 2. Clear, pink, or brownish fluid (water) leaking from vagina 3. Feeling that baby is pushing down, pressure 4. Low, dull backache 5. Cramps that feel like a period 6. Cramps with or without diarrhea If you notice any of the above symptoms, contact our office at [phone] and ask to speak with a nurse. After hours, you can call doctors registry at [phone] OR call [facility] at [phone] and ask to have the doctor media sales consultant paged. If you consider this an emergency, dial 9-1-4 or go to your nearest emergency department. NEED HELP? Are you dealing with a violent or abusive relationship? Are you a victim of rape or sexual assult? Call [facility] ([place]) 24 hour Crisis Hotline: 344.179.4182 or 389-825-1694. MANUAL Your Guide to a Healthy manual is now on-line. Visit the [email or web address] to download your free copy documented in this encounter [facility] documented as of this encounter (statuses as of 05/17/2023) [facility]10-06-2023 History of Past illness Narrative* Problem Noted Date Diagnosed Date Resolved Date UTI (urinary tract infection ) in , antepartum 04/18/2023 05/15/2023 Supervision of other high ri sk pregnancies, first trimester 11/13/2022 05/15/2023 Antepartum multigravida of a dvanced maternal age 0411/04/2022 05/15/2023 Overview: 11/04/2022She is 37 years of age. Advanced maternal age discussed. Noninvasive and invasive testing options discussed. Patient considering nuchal ultrasound and maternity 21 testing. Contact information for integrated genetics given to patient to check on insurance coverage. TKRN History of cervical LEEP bio psy affecting care of mother, antepartum 11/04/2022 05/15/2023 Overview: 11/04/2022 Patient states she had a LEEP done in [place] in 2021. I have asked patient to obtain her medical records from the doctor who did her LEEP. Our fax number was provided to her. Discussed increased risk of labor due to LEEP. TKRN documented as of this encounter (statuses as of 05/29/2023) [facility]10-06-2023 Miscellaneous Notes* Quick Notes - Waleska Swanson APRN.DENTIST/OWNER - 04/18/2023 12:22 PM EDT S: Lizette is a 37 year old female who presents at 32w0d gestation for a problem visit of dysuria,low back pain, and vomiting for one day.Good movement. Denies headache, visual changes, chestpain, shortness of breath, or vaginal bleeding. Reports leakage of fluid. Reports chills this morning at 0400. Denies fever. Has been taking Tylenol. O: See flow sheet Gen: No apparent distress Abd: Gravid, nontender, S>D ASSESSMENT/PLAN: 1. Dysuria - ICD9: 788.1, ICD10: R30.0 (primary diagnosis) acute - UA positive for virginie esterase, hematuria, proteinuria, and nitrates - Send urine for culture - Patient education for prevention given - URINE CULTURE 2. 32 weeks gestation of - ICD9: V22.2, ICD10: Z3A.32 3. Multigravida of advanced maternal age in third trimester - ICD9: 659.63, ICD10: O09.523 4. Vaginal discharge - ICD9: 623.5, ICD10: N89.8 - BACTERIAL VAGINOSIS NAAT - SARAH/TRICHOMONAS NAAT - GONORRHEA/CHLAMYDIA NAAT - YINA WNL - Negative ferning 5. Vaginal odor - ICD9: 625.8, ICD10: N89.8 6. UTI (urinary tract infection) in , antepartum - ICD9: 646.63, 599.0, ICD10: O23.40 Acute 7. Costovertebral angle tenderness - ICD9: 724.5, ICD10: M54.9 - UA positve for virginie esterase, hematuria, proteinuria, and nitrates - Right sided - To be admitted to hospital for IV antibiotics Waleska Swanson APRN.DENTIST/OWNER documented in this encounterGrand [facility] Instructions* Patient Instructions* Nia Patel MA - 04/18/2023 12:09 PM EDT SEQUENTIAL SCREENINGS The [facility] offers sequential screenings for women who are interested in screenings for chromosomal abnormalities and certain defects during a . The sequential screen combinesultrasound and blood tests to determine the risk of chromosomal abnormalities, including Down's Syndrome (Trisomy 21) and Trisomy 18, as well as open neural tube defects including spina bifida. Ultrasound examination is performed between 11 weeks and 13 weeks gestational age. Blood tests are drawn after the ultrasound and again later in the between 15 and 21 weeks gestational age. Please let your physician know if you are interested in this testing. It will require an appointment withour photonics engineering technician. This is not an ultrasound performed by a physician in our office during a routine visit. SIGNS AND SYMPTOMS OF LABOR 1. Contractions every 10 minutes or more often 2. Clear, pink, or brownish fluid (water) leaking from vagina 3. Feeling that baby is pushing down, pressure 4. Low, dull backache 5. Cramps that feel like a period 6. Cramps with or without diarrhea If you notice any of the above symptoms, contact our office at [phone] and ask to speak with anurse. After hours, you can call doctors registry at [phone] OR call [facility] at [phone] ask to have the doctor media sales consultant paged. If you consider this an emergency, dial 9-2-6 or go to your nearest emergency department. NEED HELP? Are you dealing with a violent or abusive relationship? Are you a victim of rape or sexual assult? Call [facility] ([place]) 24 hour Crisis Hotline: 255.389.5286 or 641-019-6746. MANUAL Your Guide to a Healthy manual is now on-line. Visit [email or web address] to download your free copy documented in this encounterGrand [facility] Miscellaneous Notes* Quick Notes - Joy Desai APRN.CNM - 03/26/2023 1:25 PM EDT Lizette Wood is a 37 year old female who presents at 28w5d Estimated Date of Delivery: 06/13/23 for a routine visit. Already completed GCT which was normal. Good movement. Denies headache, visual changes, chest pain, shortness of breath, vaginal bleeding, leakage of fluid, or dysuria. Feeling well, no complaints. Size equal to dates. 28 lbs TWG. PTL precautions reviewed. RTC in 2 weeks or sooner if needed. Joy Desai APRN.CNM documented in this encounterGrand [facility]09-[facility]23 Instructions* Patient Instructions* Dwight Parker Cma - 03/26/2023 1:13 PM EDT SEQUENTIAL SCREENINGS The [facility] offers sequential screenings for women who are interested in screenings for chromosomal abnormalities and certain defects during a . The sequential screen combinesultrasound and blood tests to determine the risk of chromosomal abnormalities, including Down's Syndrome (Trisomy 21) and Trisomy 18, as well as open neural tube defects including spina bifida. Ultrasound examination is performed between 11 weeks and 13 weeks gestational age. Blood tests are drawn after the ultrasound and again later in the between 15 and 21 weeks gestational age. Please let your physician know if you are interested in this testing. It will require an appointment withour photonics engineering technician. This is not an ultrasound performed by a physician in our office during a routine visit. SIGNS AND SYMPTOMS OF LABOR 1. Contractions every 10 minutes or more often 2. Clear, pink, or brownish fluid (water) leaking from vagina 3. Feeling that baby is pushing down, pressure 4. Low, dull backache 5. Cramps that feel like a period 6. Cramps with or without diarrhea If you notice any of the above symptoms, contact our office at [phone] and ask to speak with anurse. After hours, you can call doctors registry at [phone] OR call [facility] at [phone] ask to have the doctor media sales consultant paged. If you consider this an emergency, dial 91-8 or go to your nearest emergency department. NEED HELP? Are you dealing with a violent or abusive relationship? Are you a victim of rape or sexual assult? Call [facility] ([place]) 24 hour Crisis Hotline: 980.442.8360 or 908-056-9753. MANUAL Your Guide to a Healthy manual is now on-line. Visit [email or web address] to download your free copy documented in this encounterGrand [facility]08-31-2023 NoteHNO ID: [id number] Author: Maru Liz LPN Service: ? Author [...] severely ill: Yes Patient denies history of Guillain-[place] Syndrome (a severe paralytic illness): No Tdap Adacel injection was given without incident. See immunizations for details of immunizations administered today. VIS sheet provided: Yes Provider Joy Desai CNM was present in office at time of injection. Maru Herreraarnaldo [facility]08-09-2023 Miscellaneous Notes* Quick Notes - Joy Desai APRN.CNM - 02/19/2023 3:12 PM EDT Lizette Wood is a 37 year old female who presents at 23w5d for a routine visit. Good movement. Denies headache, visual changes, chest pain, shortness of breath, vaginal bleeding, leakage of fluid, or dysuria. Feeling well, no complaints. Continue ASA. PTL precautions reviewed. RTC in 4 weeks for MICHELLE with GCT. Joy Desai APRN.CNM documented in this encounterGrand [facility]08-09-2023 Instructions* Patient Instructions* Nia Patel MA - 02/19/2023 3:01 PM EDT SEQUENTIAL SCREENINGS The [facility] offers sequential screenings for women who are interested in screenings for chromosomal abnormalities and certain defects during a . The sequential screen combinesultrasound and blood tests to determine the risk of chromosomal abnormalities, including Down's Syndrome (Trisomy 21) and Trisomy 18, as well as open neural tube defects including spina bifida. Ultrasound examination is performed between 11 weeks and 13 weeks gestational age. Blood tests are drawn after the ultrasound and again later in the between 15 and 21 weeks gestational age. Please let your physician know if you are interested in this testing. It will require an appointment withour photonics engineering technician. This is not an ultrasound performed by a physician in our office during a routine visit. SIGNS AND SYMPTOMS OF LABOR 1. Contractions every 10 minutes or more often 2. Clear, pink, or brownish fluid (water) leaking from vagina 3. Feeling that baby is pushing down, pressure 4. Low, dull backache 5. Cramps that feel like a period 6. Cramps with or without diarrhea If you notice any of the above symptoms, contact our office at [phone] and ask to speak with anurse. After hours, you can call doctors registry at [phone] OR call [facility] at [phone] ask to have the doctor media sales consultant paged. If you consider this an emergency, dial 9-1-1 or go to your nearest emergency department. NEED HELP? Are you dealing with a violent or abusive relationship? Are you a victim of rape or sexual assult? Call [facility] ([place]) 24 hour Crisis Hotline: 100.180.2760 or 292-254-3319. MANUAL Your Guide to a Healthy manual is now on-line. Visit [email or web address] to download your free copy documented in this encounterGrand [facility]07-12-2023 Miscellaneous Notes* Quick Notes - Elsa Erickson MD - 01/22/2023 4:38 PM EDT DM-Pt doing well. Denies vaginal Bleeding, Leaking fluid, or regular Contractions. Pt reports good movement Physical Exam: Gen: female in no apparent distress Abd: soft, Gravid. Non tender to palpation. See flow sheet A/P: @ 19.5 weeks 1) CL normal on ultrasound today- no further CL needed- ANATOMY TODAY 2) RTO 4 weeks 3) continue ASA Elsa Bonner MD documented in this encounterGrand Lake [facility]07-12-2023 Instructions* Patient Instructions* Jennifer Dixon Ma - 01/22/2023 1:18 PM EDT SEQUENTIAL SCREENINGS The [facility] offers sequential screenings for women who are interested in screenings for chromosomal abnormalities and certain defects during a . The sequential screen combinesultrasound and blood tests to determine the risk of chromosomal abnormalities, including Down's Syndrome (Trisomy 21) and Trisomy 18, as well as open neural tube defects including spina bifida. Ultrasound examination is performed between 11 weeks and 13 weeks gestational age. Blood tests are drawn after the ultrasound and again later in the between 15 and 21 weeks gestational age. Please let your physician know if you are interested in this testing. It will require an appointment withour photonics engineering technician. This is not an ultrasound performed by a physician in our office during a routine visit. SIGNS AND SYMPTOMS OF LABOR 1. Contractions every 10 minutes or more often 2. Clear, pink, or brownish fluid (water) leaking from vagina 3. Feeling that baby is pushing down, pressure 4. Low, dull backache 5. Cramps that feel like a period 6. Cramps with or without diarrhea If you notice any of the above symptoms, contact our office at [phone] and ask to speak with anurse. After hours, you can call doctors registry at [phone] OR call [facility] at [phone] ask to have the doctor media sales consultant paged. If you consider this an emergency, dial 6-5-8 or go to your nearest emergency department. NEED HELP? Are you dealing with a violent or abusive relationship? Are you a victim of rape or sexual assult? Call [facility] ([facility] 24 hour Crisis Hotline: 761.441.6101 or 543-789-3611. MANUAL Your Guide to a Healthy manual is now on-line. Visit [email or web address] to download your free copy documented in this encounterGrand [facility]07-06-2023 Miscellaneous Notes* Telephone Encounter - Dianne Yost RN - 01/16/2023 12:37 PM EDT Spoke significant other and patient is currently at [facility] ER. Dianne Yost RN * Telephone Encounter - Kiara Bee RN - 01/16/2023 10:36 AM EDT Patient 18w6d calling with complaints of constant dull ache in RUQ that started at 6 am this morning. Occasionally pain is sharp. Position changes do not help. Pain does radiate down the right side of abdomen as well. Currently rating pain at a 6-7 out of 10. Patient has also tried warm bath and itdid relieve it temporarily. Denies any constipation, diarrhea, or difficulty urinating. No nausea or vomiting. No bleeding or leaking. No headache, dizziness or blurred vision. Does not have access to a BP machine. Patient states area where pain is located is tender to the touch. Patient has anatomy scan and OB appointment on 01/22. Do you want patient evaluated in office? Kiara Bee RN documented in this encounterGrand Lake [facility]05-03-2023 Miscellaneous Notes* Quick Notes - Terence Collazo APRN.CNM - 11/13/2022 9:22 PM EDT KWAME-See progress note. Terence Collazo APRN.CNM documented in this encounterGrand Lake Joint Township [facility]05-03-2023 NoteHNO ID: [id number] Author: Terence Collazo APRN.CNM Service: ? Author Type: Medical Dosimetrist Type: Progress Notes Filed: 11/13/2022 9:24 PM [...] Prior treatment for cervical dysplasia: LEEP at [facility] History of STDs: HPV Tobacco use: Yes, stopped 2 weeks ago after positive test Caffeine use: Yes Drug use: No Alcohol use: No Multivitamin with Folic acid: Yes Rastafarian or heritage: No Would refuse blood transfusion if medically necessary: No Are you currently employed? Yes, Occupation: [employer] Do you have any history of depression, [...] non-tender, symmetric, no dominant mass, normal nipple-areolar compl (more content not included)...[facility] 11-13-2022 History of Present illness Narrative* Terence Collazo APRN.CNM - 11/13/2022 8:45 AM EDT Images from the original note were not included. INITIAL OB ASSESSMENT OB Provider: Terence Collazo [...] History of pre-existing diabetes: No BMI 31.64 kg/(m^2) History of abnormal pap: Yes Prior treatment for cervical dysplasia: LEEP at [facility] History of STDs: HPV Tobacco use: Yes, stopped 2 weeks ago after positive test Caffeine use: Yes Drug use: No Alcohol use: No Multivitamin with Folic acid: Yes Rastafarian or heritage: No Would refuse blood transfusion if medically necessary: No Are you currently employed? Yes, Occupation: [employer] Do you have any history of depression, [...] CERVIX UTERI CONIZA LP ELCTRO EXCI 2021 D&C, DIAG AND/OR THERAPEUTIC 2009 Current Outpatient Medications [...] 162 lb (73.5kg) LMP 09/06/2022 BMI 31.64 kg/(m^2). GENERAL: pleasant in no apparent distress DERMATOLOGY: [...] at the time of Delivery SBIRT Lizette Funez was given the 4P's screening tool. Lizette [...] to rescreen early third trimester. Terence Collazo APRN.RADHA ASSESSMENT: 37 year old at 9w5d wks gestational age PLAN: 1) Patient oriented to practice. Patient given new OB orientation folder. Discussed nutrition, folic acid supplementation, dietary guidelines, exercise, smoking, alcohol, caffeine, and drug use. Discussed gestational weight gain guidelines. Discussed routine OB labs including STD/HIV. Discussed how to access Your guide to a health and the Extension Course Coordinator. OB Community care order placed. Discussed aneuploidy [...] weeks or sooner prn. Terence Collazo APRN.CNM documented in this encounterGrand Lake [facility]05-03-2023 Instructions* Patient Instructions* Terence Collazo APRN.CNM - 11/13/2022 8:31 AM EDT Please select the following link to access the [facility] Your Guide to a Healthy . [email or web address] MaterniT 21 PLUS: The MaterniT 21 Plus test analyzes genetic information that enters your bloodstream from the placenta. It requires a serum sample (blood draw). It screens for certain chromosomal abnormalities that could affect you baby's health and development. The MaterniT 21 Plus detects the following chromosomal abnormalities: Trisomy 21 (Downs syndrome), Trisomy 18 (Acuna syndrome), Trisomy 13 (Patau syndrome). It also detects 45 X, 47 XXY, 47 XXX, and 47 XYY. MaterniT 21 PLUS is a noninvasive test that can be completed as early as 9 weeks gestation. There are many ways to get this abnormal chromosomal information including serum screens and diagnostic procedures such as amniocentesis. MaterniT 21 has a higher detection rate over routine serum screening and results are typically available within 5 days. Please contact your insurance company to inquire if this service is covered and if not you could be required to pay for this test out of pocket. Please contact [facility] at forgeneral questions and for billing and/or cost questions. [email or web address] genetic testing gives [id number] information about whether their fetus has certain genetic disorders. Genetic disorders are caused by changes in a person s genes or chromosomes. Aneuploidy is a condition in which there are missing or extra chromosomes. In a trisomy, there is an extra chromosome. In amonosomy, a chromosome is missing. Inherited disorders are caused by changes in genes called mutations. Inherited disorders include sickle cell disease, cystic fibrosis, Sumanth-Sachs disease, and many others. In most cases, both parents must carry the same gene to have an affected child. Cell-free DNA is the small amount of DNA that is released from the placenta into a woman sbloodstream. The cell-free DNA in a sample of a woman s blood can be screened for Down syndrome, Patau syndrome (trisomy 13), Acuna syndrome, and problems with the number of sex chromosomes. This test can be done starting at 10 weeks of . It takes about 1 week to get the results. A positive cell-free DNA test result should be followed by a diagnostic test with amniocentesis or [facility]. Results of blood screening tests for aneuploidy are reported as the level of risk that the disordermight be present: A positive screening test result for aneuploidy means that your fetus is at higher risk of having the disorder compared with the general population. It does not mean that your fetus definitely has the disorder. A negative result means that your fetus is at lower risk of having the disorder compared with the general population. It does not rule out the possibility that your fetus has the disorder. Diagnostic testing with CVS or amniocentesis that gives a more definite result is an option for all women. Your thread checker or other health resident care technician, such as a genetic counselor, will discuss what your screening test results mean and help you decide the next steps. With any type of testing, there is a possibility of false-positive results and false-negative results. A screening test result that shows there is a problem when one does not exist is called a false-positive result. A screening test result that shows there is not a problem when one does exist is called a false- negative result. Your health resident care technician can give you information about the ratesof false-positive and false-negative results for each test. We discussed the nuchal translucency measurement as a method of detection for both aneuploidy and congenital malformations. She was counseled that in up to 70-80% of fetuses with these conditions, demonstrable thickening of the transl ucent area of the scalp and neck area is visible. Hence, the finding of a normal nuchal skin is very reassuring in reduction of risk. The patient was counseled about first trimester biochemical screening using Michael-A and free beta HCG. She was counseled that biochemical testing permits detection of approximately 80% of cases of Down Syndrome. She was counseled that the combined nuchal translucency biochemical testing is highly sensitive for the detection of Down Syndrome. Chorionic villi sampling for karyotype was also discussed. The patient was counseled about the technique, including the benefits and limitations. She was counseled that in up to 4% of cases, the karyotype indicates placental mosaicism. Under those circumstances, amniocentesis is required. The fetalloss rate is 1-1.5%. We then discussed that the AFP Quadruple Screen was available for screening earliest at the 15th week of gestation. This test is primarily useful for the detection of Down Syndrome, which approximates 70-80% with a false-positive rate of approximately 5-7%. She was counseled that the test was also useful for the detection of 60% of cases of Trisomy-18 and 85% of cases of open neural tube defect. she currently appears accepting of this test and was given a requisition for the test to be drawn after the 15th week of gestation. We have also requested that copies be forwarded to you. We then discussed the issue of a Level II ultrasound for the detection of aneuploidy and defects. She was counseled that a 16-18 week ultrasound is sensitive for the detection of 80% of cases of serious congenital abnormalities. One of the major limitations of the midtrimester ultrasound is in the detection of down Syndrome, which only approximates 30-50%. She was counseled that for fe leila Trisomy-13 and Trisomy-18, the detection rate approximate 90 and 80% respectively. For spinal defects, the detection rate approximates 90-95%. Lastly, we discussed the issue of amniocentesis at 16 weeks. The patient was counseled that this remains one of the most sensitive methods for the detection of all aneuploidies, including Down Syndrome. she was counseled that amniocentesis is insensitive for the detection of single gene defects such as cystic fibrosis, mental retardation, cerebral palsy, and epilepsy. She was counseled thatamniocentesis carries a loss rate of approximately 1/200 or 0.5%. documented in this encounterGrand Lake [facility]04-24-2023 NoteHNO ID: [id number] Author: Lena Robles RN Service: ? Author Type: ? Type: Progress Notes Filed: 11/04/2022 12:05 PM Note Text: # 1 - Date: 2007, Sex: None, Weight: None, GA: 10w0d, Delivery: MISSED AB, Apgar1: None, Apgar5: None, Living: None, Comments: DANSAÚL # 2 - Date: 07/23/11, Sex: Female, Weight: 5 lb 6 oz (2.438 kg), GA: 38w0d, Delivery: Vaginal, Spontaneous, Apgar1: None, Apgar5: None, Living: Living, Comments: elective induction for NRFHRP-pit and lewis ball # 3 - Date: 2020, Sex: None, Weight: None, GA: 8w0d, Delivery: None, Apgar1: None, Apgar5: None, Living: None, Comments: No DANDC # 4 - Date: None, Sex: None, Weight: None, GA: None, Delivery: None, Apgar1: None, Apgar5: None, Living: None, [facility] M[facility] Notes* Quick Notes - Lena Robles RN - 11/04/2022 11:59 AM EDT DISTANCE HEALTH VISIT This Team Access Model visit is a phone encounter. It required patient-provider interaction for themedical decision making as documented below. Father of the baby is involved. He is not the father of her other child. Patient recently moved back to [place] from [place]. She is 37 years of age. Advanced maternal age discussed. Noninvasive and invasive testing options discussed. Patient considering nuchal ultrasound and maternity 21 testing. Contact information for [facility] given to patient to check on insurance coverage. Patient states she had a LEEP done in [place] in 2021. I have asked patient to [...] stress. States she has not seen a solids control technician since since 2010. Patient quit smoking 2 weeks ago. Discussed risks ofsmoking during and advised patient to continue not smoking. Patient declined genetic carrier screening testing.Lena Robles RN [facility] History of Present illness Narrative* Lena Robles RN - 11/04/2022 11:58 AM EDT # 1 - Date: 2007, Sex: None, Weight: None, GA: 10w0d, Delivery: MISSED AB, Apgar1: None, Apgar5: None, Living: None, Comments: D&C # 2 - Date: 07/23/11, Sex: Female, Weight: 5 lb 6 oz (2.438 kg), GA: 38w0d, Delivery: Vaginal, Spontaneous, Apgar1: None, Apgar5: None, Living: Living, Comments: elective induction for NRFHRP-pit and lewis ball # 3 - Date: 2020, Sex: None, Weight: None, GA: 8w0d, Delivery: None, Apgar1: None, Apgar5: None, Living: None, Comments: No D&C # 4 - Date: None, Sex: None, Weight: None, GA: None, Delivery: None, Apgar1: None, Apgar5: None, Living: None, Comments: None [facility]* Diagnosis Supervision of high risk , antepartum- Primary Antepartum multigravida of advanced maternal age History of cervical LEEP biopsy affecting care of mother, antepartum Other congenital or acquired abnormality of cervix, antepartum condition or complication History of palpitations Personal history of other diseases of circulatory system Quit smoking Personal history of tobacco use, presenting hazards to health documented in this encounter [facility]* Diagnosis 9 weeks gestation of - Primary state, incidental History of thyroid disease Personal history of other endocrine, metabolic, and immunity disorders Supervision of other high risk pregnancies, first trimester documented in this encounter [facility]* Diagnosis 15 weeks gestation of - Primary state, incidental History of cervical LEEP biopsy affecting care of mother, antepartum Other congenital or acquired abnormality of cervix, antepartum condition or complication Supervision of other high risk pregnancies, first trimester documented in this encounter [facility]* Diagnosis Encounter for anatomic survey- Primary Multigravida of advanced maternal age in second trimester Other obesity due to excess calories affecting in second trimester 19 weeks gestation of state, incidental documented in this encounter [facility]* Diagnosis Multigravida of advanced maternal age in second trimester- Primary Other obesity due to excess calories affecting in second trimester 19 weeks gestation of state, incidental documented in this encounter [facility]* Diagnosis 23 weeks gestation of - Primary state, incidental Multigravida of advanced maternal age in second trimester Other obesity due to excess calories affecting in second trimester documented in this encounter [facility]* Diagnosis Multigravida of advanced maternal age in third trimester- Primary 28 weeks gestation of state, incidental documented in this encounter [facility]* Diagnosis Dysuria- Primary 32 weeks gestation of state, incidental Multigravida of advanced maternal age in third trimester Vaginal discharge Leukorrhea, not specified as infective Vaginal odor Unspecified symptom associated with female genital organs UTI (urinary tract infection) in , antepartum Infections of genitourinary tract antepartum Costovertebral angle tenderness Backache, unspecified documented in this encounter [facility]* Diagnosis 32 weeks gestation of - Primary state, incidental Multigravida of advanced maternal age in third trimester documented in this encounter [facility]* Diagnosis Encounter for ultrasound to check growth- Primary Encounter for routine screening for malformation using ultrasonics Obesity affecting in second trimester, unspecified obesity type 32 weeks gestation of state, incidental documented in this encounter [facility] for referral (narrative)* Diagnostic Procedure Only (Routine) - Open Specialty Diagnoses / Procedures Referred By David cox Referred To Contact [facility] Diagnoses 9 weeks gestation of Procedures NUCHAL TRANSLUCENCY WHI US NUCHAL TRANSLUCENCY 1ST GESTATION Terence Collazo [place] [address] [facility] [address] [place] [address] Referral ID Status Reason Start Date Expiration Date V isits Requested Visits Authorized [id number] Open Auto-Generate d Referral 11/13/2022 11/13/2023 1 1 * Diagnostic Procedure Only (Routine) - Pending Review Specialty Diagnoses / Procedures Referred By David cox Referred To Contact [facility] Diagnoses 9 weeks gestation of Procedures OBSTETRIC ULTRASOUND WHI US PREG UTERUS AFTER 1ST TRIMEST GESTATION Terence Collazo APRN.CNM [address] [place] [address] [facility] [address] [place] [address] Referral ID Status Reason Start Date Expiration Date Visits Requested Visits Authorized [id number] Pending Review Auto-Generat ed Referral 11/13/2022 11/13/2023 1 1 [facility] Health Concerns Problem Noted Date OB Reminders 11/09/2022 Problem Noted Date OB Reminders 11/09/2022 Problem Noted Date OB Reminders 11/09/2022 Problem Noted Date Diagnosed Date OB Reminders 11/09/2022 Problem Noted Date Diagnosed Date OB Reminders 11/09/2022 Problem Noted Date Diagnosed Date OB Reminders 11/09/2022 Problem Noted Date Diagnosed Date OB Reminders 11/09/2022 Problem Noted Date Diagnosed Date OB Reminders 11/09/2022 Problem Noted Date Diagnosed Date OB Reminders 11/09/2022 Summary Purpose Family History No Family History Records Found Advance Directives No Advanced Directives Records Found Additional Source Comments Source Comments (unrecognize d section and content) In the event this informatio n is protected by the Federal Confidentiality of Alcohol and Drug Abuse Patient Records regulations: The Federal rules restrict any use of the information to criminally investigate or prosecute any alcohol or drug abuse patient.[facility] the event this information is protected by the Federal Confidentiality of Alcohol and Drug Abuse Patient Records regulations: The Federal rules restrict any use of the information to criminally investigate or prosecute any alcohol or drug abuse patient.[facility] the event this information is protected by the Federal Confidentiality of Alcohol and Drug Abuse Patient Records regulations: The Federal rules restrict any use of the information to criminally investigate or prosecute any alcohol or drug abuse patient.[facility] HospitalIn the event this information is protected by the Federal Confidentiality of Alcohol and Drug Abuse Patient Records regulations: The Federal rules restrict any use of the information to criminally investigate or prosecute any alcohol or drug abuse patient.[facility] HospitalIn the event this information is protected by the Federal Confidentiality of Alcohol and Drug Abuse Patient Records regulations: The Federal rules restrict any use of the information to criminally investigate or prosecute any alcohol or drug abuse patient.[facility] HospitalIn the event this information is protected by the Federal Confidentiality of Alcohol and Drug Abuse Patient Records regulations: The Federal rules restrict any use of the information to criminally investigate or prosecute any alcohol or drug abuse patient.[facility] HospitalIn the event this information is protected by the Federal Confidentiality of Alcohol and Drug Abuse Patient Records regulations: The Federal rules restrict any use of the information to criminally investigate or prosecute any alcohol or drug abuse patient.[facility] HospitalIn the event this information is protected by the Federal Confidentiality of Alcohol and Drug Abuse Patient Records regulations: The Federal rules restrict any use of the information to criminally investigate or prosecute any alcohol or drug abuse patient.[facility] HospitalIn the event this information is protected by the Federal Confidentiality of Alcohol and Drug Abuse Patient Records regulations: The Federal rules restrict any use of the information to criminally investigate or prosecute any alcohol or drug abuse patient.[facility] HospitalIn the event this information is protected by the Federal Confidentiality of Alcohol and Drug Abuse Patient Records regulations: The Federal rules restrict any use of the information to criminally investigate or prosecute any alcohol or drug abuse patient.[facility] HospitalIn the event this information is protected by the Federal Confidentiality of Alcohol and Drug Abuse Patient Records regulations: The Federal rules restrict any use of the information to criminally investigate or prosecute any alcohol or drug abuse patient.[facility] HospitalIn the event this information is protected by the Federal Confidentiality of Alcohol and Drug Abuse Patient Records regulations: The Federal rules restrict any use of the information to criminally investigate or prosecute any alcohol or drug abuse patient.[facility] HospitalIn the event this information is protected by the Federal Confidentiality of Alcohol and Drug Abuse Patient Records regulations: The Federal rules restrict any use of the information to criminally investigate or prosecute any alcohol or drug abuse patient.[facility] HospitalIn the event this information is protected by the Federal Confidentiality of Alcohol and Drug Abuse Patient Records regulations: The Federal rules restrict any use of the information to criminally investigate or prosecute any alcohol or drug abuse patient.[facility] Reason for Visit (unrecogniz ed section and content) Reason Comments Care Reason Comments US Specialty Diagnoses / Procedures Referred By Contac t Referred To Contact [facility] Diagnoses 9 weeks gestation of History of cervical LEEP biopsy affecting care of mother, antepartum Procedures OBSTETRIC ULTRASOUND WHI US PREG UTERUS AFTER 1ST TRIMEST GESTATION Terence Collazo APRN.CNM [address] [place] [address] [facility] [address] [place] [address] Referral ID Status Reason Start Date Expiration Date V isits Requested Visits Authorized [id number] Closed Auto-Generate d Referral 12/25/2022 07/13/2023 1 1 Reason Comments OB-abdominal pain Specialty Diagnoses / Procedures Referred By Contac t Referred To Contact [facility] Diagnoses 9 weeks gestation of Procedures OBSTETRIC ULTRASOUND WHI US PREG UTERUS AFTER 1ST TRIMEST GESTATION Terence Collazo APRN.CNM [address] [place] [address] [address] Referral ID Status Reason Start Date Expiration Date Visits Requested Visits Authorized [id number] Authorized Auto-Generat ed Referral 01/09/2023 07/13/2023 20 20 Reason Onset Date Comments Care 01/22/2023 Reason Onset Date Comments Care 02/19/2023 Reason Onset Date Comments Care 03/26/2023 Reason Onset Date Comments Care 04/18/2023 Reason Onset Date Comments Care 04/23/2023 Reason Comments OB Pain Reason Comments Ob Delivery Note INFORMATION SOURCE (unrecogn ized section and content) FOR RECORDS PERTAINING TO PATIENTS WHO ARE OR HAVE BEEN ENROLLED IN A CHEMICAL DEPENDENCY/SUBSTANCEABUSE PROGRAM, SOME INFORMATION MAY BE OMITTED. This clinical summary was aggregated from multiple sources. Caution should be exercised in using it in the provision of clinical care. This summary normalizes information from multiple sources, and as a consequence, information in this document may materially change the coding, format and clinical context of patient data. In addition, data may be omitted in some cases. CLINICAL DECISIONS SHOULD BE BASED ON THE PRIMARY CLINICAL RECORDS. [facility]. provides no warranty or guarantee of the accuracy or completeness of information in this document.
== END 2023-04-20 12:25 | disposition home or self-care (01) | DRG 832 ==
PROVIDERS: Admitting Provider Obstetrics & Gynecology; Referring Provider Obstetrics & Gynecology; Visit Provider Obstetrics & Gynecology
DX: O23.03 Infections of kidney in pregnancy, third trimester (principal); N12 Tubulo-interstitial nephritis, not specified as acute or chronic; N89.8 Other specified noninflammatory disorders of vagina; O09.513 Supervision of elderly primigravida, third trimester; Z79.82 Long term (current) use of aspirin; Z3A.32 32 weeks gestation of pregnancy; Z87.891 Personal history of nicotine dependence
CPT/HCPCS: 36415; 59025; 59050; 85025; 94762; 96361; 96365; 96366; 96375; 99221; J7120; A4216; G0378; J2405

== ENCOUNTER 2023-05-08 18:08 | Inpatient (IN) | payer BC, SELFPAY ==
[2023-05-08] VITALS (18 sets, daily range): BP systolic 88–150; BP diastolic 33–94; PULSE 72–103; RESP 11–18; TEMP 36.6–36.7; O2SAT 94–100; BMI 36.0
[2023-05-08 18:16] LABS: Mucous, Urine 0 SEEN /hpf (<or=2+)
[2023-05-08 18:28] LABS: Color, Urine Yellow (Yellow); Glucose, Dipstick Normal (Normal); Ketone-Dipstick 50 mg/dl (Negative); Leukocyte Esterase-Dipstick 500 /ul (Negative); Nitrite-Dipstick Negative (Negative); Occult Blood-Urine 250 /ul (Negative); Protein-Dipstick 15 mg/dl (Negative); Urine Bilirubin Dipstick Negative (Negative); Urine Clarity Sl. Cloudy (Clear); Urine Urobilinogen Normal (Normal)
[2023-05-08 18:41] LABS: White Blood Cells 10-25 SEEN /hpf (0-5)
[2023-05-08 18:42] LABS: Bacteria 1+ /hpf (None Seen); Red Blood Cells-Urine 0-5 SEEN /hpf (0-5); Squamous Epithelial Cells - UA 0-5 SEEN /hpf (5-10)
[2023-05-08] MEDS: Cefazolin 2 GM in 0.9% Normal Saline (100mL Bag) 100 ML IV (18:48)
[2023-05-08 18:50] LABS: Absolute Lymphocyte Count 2.93 X10^3/uL (0.83-4.51); Absolute Neutrophil Count 9.5 X10^3/uL (2.0-7.7); Basophil# 0.05 X10^3/uL; Basophil% 0.4 % (0-1); Eosinophil# 0.38 X10^3/uL; Eosinophils% 2.7 % (0-5); Hematocrit 39.8 % (37-47); Hemoglobin 13.2 g/dL (12.0-15.0); Lymphocyte # 2.93 X10^3/ul (0.83-4.51); Lymphocyte % 20.9 % (19-41); Mean Corp Hgb Conc 33.2 g/dL (32-36); Mean Corpuscular Hgb 30.1 pg (27.0-32.0); Mean Corpuscular Volume 90.7 fL (81-99); Mean Platelet Vol. 10.5 fl (6.2-12.0); Monocyte# 1.14 X10^3/uL; Monocyte% 8.1 % (0-10); NRBC Flagged by Analyzer 0 % (0-5); Neutrophil # 9.47 X10^3/uL (2.7-7.7); Neutrophil % 67.5 % (47-70); Platelet Count 275 K/mm3 (150-450); RBC Distribution Width CV 13.3 % (11.6-14.6); RBC Distribution Width SD 43.6 fl (35.1-43.9); Red Blood Count 4.39 M/mm3 (4.2-5.4)
[2023-05-08 19:09] LABS: Syphilis Antibodies Non-reactive
[2023-05-08] MEDS: Oxytocin 15 Units/NS 250ml 15 UNITS/250 ML IV.SOLN 83 UNITS IV (19:45)
--- NOTE | 2023-05-08 19:54 | PCM.HP.OB ---
HPI - General General Date of Admission: 05/08/23 Date of Service: 05/08/23 Chief Complaint: contractions HPI Narrative APRIL WOOD, is a 37 F at 34w6d with contractions every 1 to 2 minutes and vaginal bleeding at home. No leaking of fluid. Good movement. She denies any falls or abdominal trauma. She was at work today when she started noticing regular painful contractions and bleeding with wiping. PFSH PFS Medical History (Updated 05/08/23 @ 19:[address] Jenifer Arevalo, DO) Former smoker Irregular heart beat Pyelonephritis affecting Home Medications ondansetron 4 mg disintegrating tablet 4 mg PO Q8H PRN PRN Nausea #10 tabs 01/16/23 [Rx Last Taken Unknown] [id number] 400 mcg-om3 35 mg-dha 25 mg-epa 5 mg-fish oil chewable tablet 2 tab PO DAILY 04/18/23 [History Last Taken 04/17/23] aspirin 81 mg chewable tablet 1 tab PO DAILY 04/18/23 [History Last Taken 04/18/23] cephalexin 500 mg capsule 500 mg PO Q6H 12 days #48 caps 04/20/23 [Rx Last Taken Unknown] metronidazole 500 mg tablet 500 mg PO BID 6 days #12 tabs 04/20/23 [Rx Last Taken Unknown] Allergy/AdvReac Type Severity Reaction Status Date / Time turkey Allergy Mild Hives Verified 01/16/23 11:30 wool Allergy Mild Hives Verified 01/16/23 11:30 amoxicillin Allergy Hives Verified 01/16/23 11:30 Social History Smoking Status: Former smoker History Elective abortions Hx Para 1 Spontaneous abortions Hx # Term Pregnancies Ectopic pregnancies Hx # Pregnancies Multiple births # of living children NST FHR Rate Baby A Baseline: 150 Variability:: Minimal Accelerations:: None Decelerations:: Late Uterine Activity:: Ctx's palpated q 1-2 min Vital Signs Vital Signs Vital Signs: 05/08/23 17:41 05/08/23 17:41 05/08/23 17:43 Pulse Rate 100 90 Blood Pressure 132/69 H BP Systolic 132 BP Diastolic 69 Pulse Ox 05/08/23 17:43 05/08/23 17:48 05/08/23 17:48 Pulse Rate 75 Blood Pressure BP Systolic BP Diastolic Pulse Ox 99 99 05/08/23 17:53 05/08/23 17:53 05/08/23 17:54 Pulse Rate 103 H 82 Blood Pressure BP Systolic BP Diastolic Pulse Ox 94 05/08/23 17:54 05/08/23 17:59 05/08/23 17:59 Pulse Rate 78 Blood Pressure BP Systolic BP Diastolic Pulse Ox 100 99 05/08/23 18:05 05/08/23 18:05 Pulse Rate 83 Blood Pressure BP Systolic BP Diastolic Pulse Ox 100 Weight Weight: 184 lb 6.4 oz Body Mass Index (BMI) 36.0 Labs Labs Labs: Blood Type Pending Antibody Screen NEGATIVE Hct 39.8 % (37-47) Hgb 13.2 g/dL (12.0-15.0) Syphilis Total Ab Non-reactive Assessment & Plan (1) 34 weeks gestation of : PLAN: Patient presented to labor and delivery with uterine contractions every 1 to 2 minutes and vaginal bleeding. Category 3 heart rate tracing was noted. Discussed concern for placental abruption and given nonreassuring heart rate tracing recommended delivery. Prior to start of the heart tones were 150/mod siva/no accels/+late decelerations so decision was made to proceed with a spinal. Discussed risk, benefits, alternatives to and verbal consent was obtained. Ancef preop was ordered. See operative report for details. (2) Uterine contractions: (3) Vaginal bleeding: (4) Non-reassuring heart rate or rhythm affecting management of fetus:
--- NOTE | 2023-05-08 20:02 | PCM.OPRPT ---
Problems Associated Problem List Diagnoses (1) Non-reassuring heart rate or rhythm affecting management of fetus: (2) Vaginal bleeding: (3) Uterine contractions: (4) 34 weeks gestation of : Report of Operation Date of Procedure: 05/08/23 Pre-Operative Diagnosis: 34 week gestation, single IUP, uterine contractions, vaginal bleeding, NRFHT Post-Operative Diagnosis: As above, suspect placental abruption Surgery/Procedure Performed:: PLTCS via pfannenstiel incision Description of Surgical Findings:: Viable male in cephalic presentation with Apgars of 7 and 8. Nuchal cord that was loose x 2. Clear fluid. Normal-appearing placenta with a three-vessel cord. There was a small retroplacental clot noted. Normal-appearing uterus and bilateral adnexa. Surgeon: Jenifer Arevalo containers sales representative: Heri ROMO Type of Anesthesia: Spinal Special Medications: None Specimen's removed: Placenta Drains: Romo Estimated Blood Loss (mL): 700 Fluids Replaced: 1000 mL Description of Procedure: Patient was taken to the operating room after presenting to L&D with regular contractions, vaginal bleeding, and category 3 heart rate tracing. Once back in the operating room heart rate tracing was 150 bpm with moderate variability and late decelerations with every contraction that was palpated. The patient then set up for a spinal anesthesia which was found to be adequate. She was prepped and draped in the dorsal supine position with a leftward tilt. A Pfannenstiel skin incision was made using the scalpel and carried down to the underlying layer of fascia. The fascia was incised in midline. The fascia was extended bluntly with lateral traction. The rectus muscles were in the midline. The peritoneum was entered bluntly. The peritoneal incision was extended bluntly with lateral traction. A bladder blade was inserted. A low transverse incision was made on the uterus with a scalpel. The uterine incision was extended with cephalad and caudad traction. The was noted to be in cephalic presentation. The head was delivered in a flexed position and a loose nuchal cord x 2 was reduced. The body of the was delivered easily through the hysterotomy without any force or delay. The cord was clamped and cut immediately and the was handed off to the awaiting nursery staff. Cord gases and cord blood were sent. The placenta was removed with manual extraction. A small ~2 cm retroplacental clot was noted. The uterus was cleared of all clot debris. Uterus was exteriorized. The hysterotomy was closed with an 1-0 Vicryl in a running locked fashion. Several additional clqpld-ir-ffgej sutures were placed for hemostasis. The uterus was placed back into the abdomen. The hysterotomy was noted to be hemostatic. There was a vessel noted to be bleeding in the subfascial space which was made hemostatic with 3-0 Vicryl in a grkbzv-xe-znrtr fashion. The fascia was closed with stratafix in a running fashion. The subcutaneous space was irrigated and made hemostatic with Bovie cautery. Subcutaneous space was reapproximated 3-0 Vicryl. Skin was closed with 4 Monocryl in subcuticular fashion. A dressing was placed. Instrument, sponge, needle counts were correct. The patient was taken to recovery in stable condition. Offset Press Operator Helper Heri ROMO was present for draping the patient, delivery of the , and closure. Grafts/Implants Used: None Complications None Admit VTE Documentation VTE Present on Admission: No VTE Mechan Device Prophylaxis: SCD's
[2023-05-08] MEDS: Ketorolac 30 MG/ML Syringe IV (21:44)
[2023-05-08] MEDS: Acetaminophen 500 MG Tablet 1000 MG PO (22:53)
[2023-05-08] MEDS: Lactated Ringers 1,000 ML 100 ML IV (22:54)
[2023-05-08] MEDS: Ondansetron 4 MG/2 ML Vial IV (22:59)
[2023-05-09] VITALS (7 sets, daily range): BP systolic 106–124; BP diastolic 63–75; PULSE 66–81; RESP 16–18; TEMP 36.1–37; O2SAT 95–100
[2023-05-09] MEDS: LACTATED RINGERS 500 ML 999 ML IV (04:00)
[2023-05-09] MEDS: Acetaminophen 500 MG Tablet 1000 MG PO ×3 (04:28→17:50)
[2023-05-09 04:47] LABS: Hematocrit 34.8 % (37-47); Hemoglobin 11.5 g/dL (12.0-15.0); Mean Corpuscular Volume 90.9 fL (81-99); Mean Platelet Vol. 9.8 fl (6.2-12.0); Platelet Count 218 K/mm3 (150-450); RBC Distribution Width CV 13.2 % (11.6-14.6); RBC Distribution Width SD 43.7 fl (35.1-43.9); Red Blood Count 3.83 M/mm3 (4.2-5.4); White Blood Count 15.7 K/mm3 (4.4-11.0)
--- NOTE | 2023-05-09 10:12 | CASEMGMT ---
Social Work Assessment Labor and Delivery Unit Patient Address:[address] [place] [address]. [place] [address] Phone number: [phone] Date of Referral: 05/09/23 Time of Referral:? 829 Referred By: Nursing staff Date of Intervention: ?05/09/23? Time of Intervention:? 944 Reason for Referral:? AKIKO, baby in special care nursery Sw completed chart review and received information from nursing staff that mother of baby (GERMAN Bauer) would benefit from social work consult due to AKIKO and baby requiring transfer to Special Care Nursery. Sw presented to bedside and introduced self to MOB. Sw explained reason for sw involvement. Sw completed psychosocial assessment, assessed for any needs or concerns and provided education and literature for MOB regarding mental health during her journey. History obtained from: medical records and mother of baby (KITA)??? Household composition: KITA reports that currently residing in the family home is herself, father of baby (JIMBO- Jose), KITA's 12 year old daughter- Teresita', and now baby. MOB states that her mother also resides on the same property but not in the same home. MOB states that housing is safe and secure- no concerns. Patient's parent/guardian status:? MOB states that she and JIMBO met each other a long time ago through mutual friends. They were together for some time, and then broke up. MOB states that at this time they have been with each other for two years. Parents are unmarried, co-habitating. MOB states that JIMBO has two other children, they are 15 and 13 year old boys. MOB states that their mother refuses to let JIMBO be a part of their lives so he has not seen them in years. When asked why this would be MOB said she does not know why. ? Medical History: KITA is 6, para 1- now 2. KITA received care during with [facility]. MOB states that she was at work all day, when around 4:00 she started to feel some contractions, which she thought was just ian arreola, until she went to the restroom and had bloody show. MOB states that she reported to the hospital and baby started to have low heart rates during contractions so it was decided for safety of baby and MOB to do a delivery. Baby boy, named Kristyn, was born at 34 weeks gestation. Baby weighted 5lb 14oz and his apgars were 7 and 9 at one and five minutes of life respectfully. Due to baby being born at 34 weeks he was transferred to Special Care Nursery. Educational Status:? KITA states that both parents graduated high school. KITA reports that she obtained a certificate of completion for Business Management. Financial Status: KITA is gainfully employed outside of the home. KITA works at [employer] in the [employer] dept. MOB states that she is able to get 5.5 months off of work for maternity leave and bonding time. JIMBO is unemployed at this time. Infant Supplies: KITA reports that she has obtained all necessary baby items for baby, including: safe sleep space, clothes, diapers, wipes and a car seat. Childcare/Caregiver(s):? KITA will be the primary caregiver to baby while she is on maternity leave, along with JIMBO. When KITA and JIMBO are both at work maternal grandma will be able to assist with childcare needs. Transportation:?? KITA has drivers license and reliable means of transportation. No transportation barriers at this time. Programs/Agencies Involved: ?KITA denies any involvement with any financial community resources. ??Arline educated MOB on Help Me Grow services and supporst and encouraged MOB to get connected to Help Me Grow at time of discharge. Children Services/Legal Issues:??? No history of involvement, no issues or concerns warranting referral at this time. Behavioral Health Issues: ??Mental Health History:?MOB states that she and JIMBO do not have any mental health diagnoses. ?? Substance Use History: MOB denies substance use prior to and during . MOB states that she smoked cigarettes during part of her . ?? Family History:?MOB denies any family history of addiction and mental health concerns. ? Drug Screens: ??No urine screens observed in chart review. Family/Social Stressors:? No family stressors identified at this time. Support Systems: MOB states that JIMBO and her mom are her biggest supports, along with her 12 year old daughter. MOB states that JIMBO's father and his best friend are also supportive as well. Depression/Shaken Baby/Safe Sleeping: Arline educated MOB on signs and symtoms of baby blues and depression. Arline provided MOB with literature to review as well as a list of [facility] resources that are available. MOB expressed understanding. Sw also educated MOB on shaken baby prevention and ABCs of safe sleep. MOB expressed understanding. ? ASSESSMENT:? MOB and baby require admission following labor and delivery. MOB talkative and engaged during social work assessment. MOB receptive to support provided by sw. MOB expressed understanding of baby's need for Special Care Nursery admission. MOB has natural supports in place and has obtained all necessary baby items. MOB maintained eye contact and talked openly with sw. PLAN:? MOB to be discharged when medically ready. Baby to be discharged from [facility] when medically ready. ?No other services requested or indicated. Bhavana Bess, MACHINE LONG GOODS HELPER, FIBER PRODUCT CUTTING MACHINE OPERATOR
[2023-05-09] MEDS: Ketorolac 30 MG/ML Syringe IV ×2 (10:19→17:49)
[2023-05-09] MEDS: Senna/Docusate Sodium 1 Tablet PO (10:19)
--- NOTE | 2023-05-09 14:02 | PN.OBGYN_ITS ---
Subjective Subjective Doing well per patient and nursing staff. Ambulating and taking PO without difficulty. Voiding and passing flatus. Pain controlled. , services for assistance. Baby in SCN. Denies headache, visual changes, chest pain, shortness of breath, leg pain or increased bleeding. Lochia normal. Objective Data Objective Data Vital Signs: Vital Signs Temp Pulse Resp BP Pulse Ox O2 Del Method 98.6 F 75 16 109/63 96 Room Air 05/09/23 08:00 05/09/23 08:00 05/09/23 08:00 05/09/23 08:00 05/09/23 08:00 05/09/23 08:00 Oxygen Delivery Method Room Air Weight: 184 lb 6.4 oz Body Mass Index (BMI) 36.0 Intake & Output: Intake and Output for Last 24 Hours 05/07/23 05/08/23 05/09/23 23:59 23:59 23:59 Intake Total 465 / 465 500 / 500 Output Total 1550 / 1550 130 / 130 Balance -1085 / -1085 370 / 370 Lab / Micro Data 05/09/23 04:35 Labs: Laboratory Results - last 24 hr 05/08/23 17:40: WBC 14.0 H, RBC 4.39, Hgb 13.2, Hct 39.8, MCV 90.7, MCH 30.1, MCHC 33.2, RDW Std Deviation 43.6, RDW Coeff of James 13.3, Plt Count 275, MPV 10.5, Immature Gran % (Auto) 0.400, Neut % (Auto) 67.5, Lymph % (Auto) 20.9, [place] % (Auto) 8.1, Eos % (Auto) 2.7, Baso % (Auto) 0.4, Absolute Neuts (auto) 9.5 H, Absolute Lymphs (auto) 2.93, Nucleated RBC % 0, Urine Color Yellow, Urine Clarity Sl. Cloudy, Urine pH 6.0, Ur Specific [place] 1.020, Urine Protein 15 H, Urine Glucose (UA) Normal, Urine Ketones 50 H, Urine Occult Blood 250 H, Urine Nitrite Negative, Urine Bilirubin Negative, Urine Urobilinogen Normal, Ur Leukocyte Esterase 500 H, Urine RBC 0-5 SEEN, Urine WBC 10-25 SEEN, Ur Squamous Epith Cells 0-5 SEEN, Urine Bacteria 1+, Urine Mucus 0 SEEN, Syphilis Total Ab Non-reactive, Antibody Screen NEGATIVE 05/09/23 04:35: WBC 15.7 H, RBC 3.83 L, Hgb 11.5 L, Hct 34.8 L, MCV 90.9, MCH 30.0, MCHC 33.0, RDW Std Deviation 43.7, RDW Coeff of James 13.2, Plt Count 218, MPV 9.8 ROS Constitutional Constitutional: Reports systems reviewed and no addt'l complaints, except as documented; Denies headache(s) Eyes Eyes: Denies acute decrease in peripheral vision, blurry vision or change in vision ENT HEENT: Reports systems reviewed and no addt'l complaints, except as documented Cardiovascular Cardiovascular: Denies chest pain or dizziness Respiratory/Chest Respiratory/Chest: Denies cough, dyspnea, dyspnea on exertion, shortness of eleanor th at rest or shortness of breath with exertion Gastrointestinal Gastrointestinal: Denies abdominal pain, diarrhea, nausea or vomiting Genitourinary Genitourinary: Denies abdominal discomfort Musculoskeletal Musculoskeletal: Denies limited range of motion Integumentary Integumentary: Reports systems reviewed and no addt'l complaints, except as documented Neurologic Neurologic: Reports systems reviewed and no addt'l complaints, except as documented Psychiatric Psychiatric: Reports systems reviewed and no addt'l complaints, except as documented Endocrine Endocrinology: Reports systems reviewed and no addt'l complaints, except as documented Hematologic/Lymphatic Hematologic/Lymphatic: Reports systems reviewed and no addt'l complaints, except as documented Allergic/Immunologic Allergic/Immunologic: Reports systems reviewed and no addt'l complaints, except as documented Physical Exam Const alert and oriented x3 General Appearance: cooperative Orientation / Consciousness: awake, oriented to person, oriented to place and oriented to time Exam Limitations: no limitations HEENT normocephalic Head and Scalp: normal to inspection, normocephalic and atraumatic Face and Sinus: normal facial exam Eyes General Eye: normal appearance of both eyes Neck full ROM Chest Chest: symmetrical chest wall rise Resp normal respiratory effort and normal air movement Auscultation: clear to auscultation bilaterally Cardio regular rate, regular rhythm, S1 normal heart sound, S2 normal heart sound, no murmurs, no rub, no gallops and no clicks GI normal to inspection, nondistended, normoactive bowel sounds and non-tender appearance of the vagina normal Bladder / Kidney Exam: no CVA tenderness Back/Spine normal ROM Extremity normal to inspection and full ROM Skin no rashes or lesions noted Neuro oriented x3, CN's II-XII intact bilaterally and moves all extremities Sensorium / Orientation: awake, alert and oriented to person Motor Exam: clonus absent Deep Tendon Reflexes: Rt Patellar (L4): 2+ and Lt Patellar (L4): 2+ Assessment & Plan (1) Delivery by section: (2) Lactating mother: PLAN: Plan 1) POD#1 Primary LTCS 2) I&O 3) Hgb stable 4) Pain management 5) Romo, in place, to be removed 6) Baby in SCN
--- NOTE | 2023-05-09 18:35 | NURSING ---
1800- lewis catheter d/c'd with catheter intact after withdrawing 10cc fluid. D/c'd at 23 hours due to decreased urine output
[2023-05-10] MEDS: Acetaminophen 500 MG Tablet 1000 MG PO ×5 (00:13→23:31)
[2023-05-10] MEDS: Ibuprofen 600 MG Tablet PO ×5 (00:13→23:31)
[2023-05-10 02:10] VITALS: BP 106/61; PULSE 71; RESP 16; O2SAT 97
--- NOTE | 2023-05-10 05:53 | PCM.PN.OB ---
Subjective Subjective Doing well per patient and nursing staff. Ambulating and taking PO without difficulty. Voiding and passing flatus. Pain controlled. , services for assistance. Denies headache, visual changes, chest pain, shortness of breath, leg pain or increased bleeding. Lochia normal. Objective Data Objective Data Vital Signs: Vital Signs Temp Pulse Resp BP Pulse Ox O2 Del Method 98.2 F 71 16 106/61 97 Room Air 05/09/23 16:14 05/10/23 02:10 05/10/23 02:10 05/10/23 02:10 05/10/23 02:10 05/10/23 02:10 Oxygen Delivery Method Room Air Weight: 184 lb 6.4 oz Body Mass Index (BMI) 36.0 Intake & Output: Intake and Output for Last 24 Hours 05/08/23 05/09/23 05/10/23 23:59 23:59 23:59 Intake Total 465 / 465 2595 / 2595 Output Total 1550 / 1550 1330 / 1330 Balance -1085 / -1085 1265 / 1265 Lab / Micro Data 05/09/23 04:35 ROS Constitutional Constitutional: Reports systems reviewed and no addt'l complaints, except as documented; Denies headache(s) Eyes Eyes: Denies acute decrease in peripheral vision, blurry vision or change in vision ENT HEENT: Reports systems reviewed and no addt'l complaints, except as documented Cardiovascular Cardiovascular: Denies chest pain or dizziness Respiratory/Chest Respiratory/Chest: Denies cough, dyspnea, dyspnea on exertion, shortness of breath at rest or shortness of breath with exertion Gastrointestinal Gastrointestinal: Denies abdominal pain, diarrhea, nausea or vomiting Genitourinary Genitourinary: Denies abdominal discomfort Musculoskeletal Musculoskeletal: Denies limited range of motion Integumentary Integumentary: Reports systems reviewed and no addt'l complaints, except as documented Neurologic Neurologic: Reports systems reviewed and no addt'l complaints, except as documented Psychiatric Psychiatric: Reports systems reviewed and no addt'l complaints, except as documented Endocrine Endocrinology: Reports systems reviewed and no addt'l complaints, except as documented Hematologic/Lymphatic Hematologic/Lymphatic: Reports systems reviewed and no addt'l complaints, except as documented Allergic/Immunologic Allergic/Immunologic: Reports systems reviewed and no addt'l complaints, except as documented Physical Exam Const alert and oriented x3 General Appearance: cooperative Orientation / Consciousness: awake, oriented to person, oriented to place and oriented to time Exam Limitations: no limitations HEENT normocephalic Head and Scalp: normal to inspection, normocephalic and atraumatic Face and Sinus: normal facial exam Eyes General Eye: normal appearance of both eyes Neck full ROM Chest Chest: symmetrical chest wall rise Resp normal respiratory effort and normal air movement Auscultation: clear to auscultation bilaterally Cardio regular rate, regular rhythm, S1 normal heart sound, S2 normal heart sound, no murmurs, no rub, no gallops and no clicks GI normal to inspection, nondistended, normoactive bowel sounds and non-tender GI Narrative: Dressing clean and dry appearance of the vagina normal Bladder / Kidney Exam: no CVA tenderness Back/Spine normal ROM Extremity normal to inspection and full ROM Skin no rashes or lesions noted Neuro oriented x3 and moves all extremities Sensorium / Orientation: awake, alert and oriented to person Motor Exam: clonus absent Assessment & Plan (1) Lactating mother: (2) Delivery by section: PLAN: Plan 1) POD#2 2) Pain management 3) I&O 4) Baby in SCN, 5) Planning D/C home tomorrow 6) Follow up in 1 week for incision check and 6 week PP visit
[2023-05-10 07:59] VITALS: BP 115/70; PULSE 66; RESP 16; TEMP 36.8; O2SAT 96
[2023-05-10] MEDS: Senna/Docusate Sodium 1 Tablet PO (12:01)
[2023-05-10 15:44] VITALS: BP 115/72; PULSE 81; RESP 14; TEMP 36.9; O2SAT 96
[2023-05-10] MEDS: Influenza Virus Vac Quad 23-24 60 MCG/0.5 ML SYRINGE IM (18:10)
[2023-05-10 19:45] VITALS: BP 113/63; PULSE 78; RESP 16; TEMP 36.7; O2SAT 98
[2023-05-10 20:05] VITALS: RESP 16
[2023-05-11 02:30] VITALS: BP 114/77; PULSE 74; RESP 16; TEMP 36.8; O2SAT 98
[2023-05-11] MEDS: Acetaminophen 500 MG Tablet 1000 MG PO ×2 (05:44→11:33)
[2023-05-11] MEDS: Ibuprofen 600 MG Tablet PO ×2 (05:45→11:34)
[2023-05-11] MEDS: oxyCODONE 5 MG Tablet PO (05:49)
[2023-05-11 07:58] VITALS: BP 112/83; PULSE 74; RESP 14; TEMP 36.7; O2SAT 98
--- NOTE | 2023-05-11 10:22 | PCM.PN.OB ---
Subjective Subjective Doing well per patient and nursing staff. Ambulating and taking PO without difficulty. Voiding and passing flatus. Pain controlled. and pumping, services for assistance. Denies headache, visual changes, chest pain, shortness of breath, leg pain or increased bleeding. Lochia normal. Baby in SCN. Objective Data Objective Data Vital Signs: Vital Signs Temp Pulse Resp BP Pulse Ox O2 Del Method 98.0 F 74 14 112/83 H 98 Room Air 05/11/23 07:58 05/11/23 07:58 05/11/23 07:58 05/11/23 07:58 05/11/23 07:58 05/11/23 07:58 Oxygen Delivery Method Room Air Weight: 184 lb 6.4 oz Body Mass Index (BMI) 36.0 Intake & Output: Intake and Output for Last 24 Hours 05/09/23 05/10/23 05/11/23 23:59 23:59 23:59 Intake Total 2595 / 2595 Output Total 1330 / 1330 Balance 1265 / 1265 Lab / Micro Data 05/09/23 04:35 ROS Constitutional Constitutional: Reports systems reviewed and no addt'l complaints, except as documented; Denies headache(s) Eyes Eyes: Denies acute decrease in peripheral vision, blurry vision or change in vision ENT HEENT: Reports systems reviewed and no addt'l complaints, except as documented Cardiovascular Cardiovascular: Denies chest pain or dizziness Respiratory/Chest Respiratory/Chest: Denies cough, dyspnea, dyspnea on exertion, shortness of breath at rest or shortness of breath with exertion Gastrointestinal Gastrointestinal: Denies abdominal pain, diarrhea, nausea or vomiting Genitourinary Genitourinary: Denies abdominal discomfort Musculoskeletal Musculoskeletal: Denies limited range of motion Integumentary Integumentary: Reports systems reviewed and no addt'l complaints, except as documented Neurologic Neurologic: Reports systems reviewed and no addt'l complaints, except as documented Psychiatric Psychiatric: Reports systems reviewed and no addt'l complaints, except as documented Endocrine Endocrinology: Reports systems reviewed and no addt'l complaints, except as documented Hematologic/Lymphatic Hematologic/Lymphatic: Reports systems reviewed and no addt'l complaints, except as documented Allergic/Immunologic Allergic/Immunologic: Reports systems reviewed and no addt'l complaints, except as documented Physical Exam Const alert and oriented x3 General Appearance: cooperative Orientation / Consciousness: awake, oriented to person, oriented to place and oriented to time Exam Limitations: no limitations HEENT normocephalic Head and Scalp: normal to inspection, normocephalic and atraumatic Face and Sinus: normal facial exam Eyes General Eye: normal appearance of both eyes Neck full ROM Chest Chest: symmetrical chest wall rise Resp normal respiratory effort and normal air movement Auscultation: clear to auscultation bilaterally Cardio regular rate, regular rhythm, S1 normal heart sound, S2 normal heart sound, no murmurs, no rub, no gallops and no clicks GI normal to inspection, nondistended, normoactive bowel sounds and non-tender GI Narrative: Fundus firm 3 below U. Dressing dry and intact. appearance of the vagina normal Bladder / Kidney Exam: no CVA tenderness Back/Spine normal ROM Extremity normal to inspection and full ROM Skin no rashes or lesions noted Neuro oriented x3 and moves all extremities Sensorium / Orientation: awake, alert and oriented to person Assessment & Plan (1) Lactating mother: (2) Delivery by section: PLAN: Plan 1) POD #3 section 2) Pain management 3) 4) Follow up in one week for incision check.
--- NOTE | 2023-05-11 10:27 | PCM.DC.SUM ---
Providers Date of Admission: 05/08/23 Primary Care Physician: Amairani Primary Care Phys Reason For Visit: C SECTION Diagnosis Discharge Diagnosis (1) Lactating mother: Status: Acute Code(s): Z39.1 - Encounter for care and examination of lactating mother (2) Delivery by section: Status: Acute Plan 1) POD #3 section 2) Pain management 3) 4) Follow up in one week for incision check. Medications at Discharge Home Medications [id number] 400 mcg-om3 35 mg-dha 25 mg-epa 5 mg-fish oil chewable tablet 2 tab PO DAILY 04/18/23 acetaminophen 500 mg tablet 1,000 mg (2 x 500 mg) PO Q6H #0 tabs 05/11/23 ibuprofen 600 mg tablet 600 mg PO Q6H #30 tabs 05/11/23 sennosides 8.6 mg-docusate sodium 50 mg tablet (Stool Softener-Stimulant Laxative) 1 - 2 tab PO DAILY #30 tabs 05/11/23 Hospital Course Summary of Care Provided Minutes Spent on Discharge: 15 Weight / BMI Weight Weight: 184 lb 6.4 oz Body Mass Index (BMI) 36.0 ABG / Lab / Microbiology Data 05/09/23 04:35 Meaningful Use Info Meaningful Use Diagnoses (Choose all that apply): None applicable Discharge Plan Admission Admit Date/Time: 05/08/23 18:08 Primary Reason for Your Visit: Section Attending Provider: Jenifer Arevalo Primary Care Provider: Care Physician,No Primary Discharge Orders/Prescriptions Prescriptions: New acetaminophen 500 mg Tablet 1,000 mg PO Q6H Qty: 0 0RF ibuprofen 600 mg Tablet 600 mg PO Q6H Qty: 30 0RF sennosides-docusate sodium [Stool Softener-Stimulant Laxat] 8.6-50 mg Tablet 1 - 2 tab PO DAILY Qty: 30 0RF Continued [id number] oil 400 mcg-35 mg -25 mg-5 mg tablet,chewable 2 tab PO DAILY Discontinued aspirin 81 mg tablet,chewable 1 tab PO DAILY cephalexin 500 mg capsule 500 mg PO Q6H 12 Days Qty: 48 0RF metronidazole 500 mg tablet 500 mg PO BID 6 Days Qty: 12 0RF ondansetron 4 mg tablet,disintegrating 4 mg PO Q8H PRN PRN (Reason: Nausea) Qty: 10 0RF Referrals / Follow Up: Care Physician,No Primary [Primary Care Provider] - Disposition Disposition (needs filled in before D/C Order can be placed): Home, Self Care
[2023-05-11] MEDS: Senna/Docusate Sodium 1 Tablet PO (10:31)
== END 2023-05-11 11:35 | disposition home or self-care (01) | DRG 786 ==
LOC: WPOUT 18:08 → WP 18:08
PROVIDERS: Advanced Practice Midwife; Admitting Provider Obstetrics & Gynecology; Referring Provider Obstetrics & Gynecology; Visit Provider Obstetrics & Gynecology
DX: O76 Abnormality in fetal heart rate and rhythm complicating labor and delivery (principal); O45.93 Premature separation of placenta, unspecified, third trimester; Z37.0 Single live birth; O69.81X0 Labor and delivery complicated by cord around neck, without compression, not applicable or unspecified; Z3A.34 34 weeks gestation of pregnancy; Z79.82 Long term (current) use of aspirin; Z87.891 Personal history of nicotine dependence; Z87.59 Personal history of other complications of pregnancy, childbirth and the puerperium; Z23 Encounter for immunization
CPT/HCPCS: 59025; 59050; 81001; 85025; 85027; 86780; 86850; 86900; 86901; 99221; J7120; 90686; G0378; J2405